=== PATIENT | female | born 1945 | race Caucasian/White ===

== ENCOUNTER 2016-04-24 20:00 | Observation (INO) | payer MEDICARE, BC ==
--- NOTE | 2016-04-24 20:24 | ERNOTE ---
Chest Pain/Cardiac HPI Chief Complaint: Chest Pain Time Seen by Provider: 04/24/16 20:14 Source: patient Exam Limitations: no limitations Immunizations: IMMUNIZATION HX History of Influenza Vaccine No Hx Pneumococcal Vaccination No Allergies/Adverse Reactions: Allergies desvenlafaxine succinate [From Pristiq] Allergy (Mild, Verified 04/24/16 20:17) Headache morphine Allergy (Mild, Verified 04/24/16 20:17) hypotension metronidazole [From Flagyl] Allergy (Unknown, Verified 04/24/16 20:17) citalopram hydrobromide [From Celexa] Adverse Reaction (Mild, Verified 04/24/16 20:17) Headache cyclobenzaprine HCl [From Flexeril] Adverse Reaction (Mild, Verified 04/24/16 20 :17) Headache desipramine Adverse Reaction (Mild, Verified 04/24/16 20:17) Headache estradiol [From Vagifem] Adverse Reaction (Mild, Verified 04/24/16 20:17) Itching estrogens, conjugated [From Prempro] Adverse Reaction (Mild, Verified 04/24/16 20:17) Itching indomethacin Adverse Reaction (Mild, Verified 04/24/16 20:17) Headache levofloxacin [From Levaquin] Adverse Reaction (Mild, Verified 04/24/16 20:17) RASH medroxyprogesterone acetate [From Prempro] Adverse Reaction (Mild, Verified 07/06 20:17) Itching niacin Adverse Reaction (Mild, Verified 04/24/16 20:17) RASH topiramate [From Topamax] Adverse Reaction (Mild, Verified 04/24/16 20:17) Headache triazolam [From Halcion] Adverse Reaction (Mild, Verified 04/24/16 20:17) Itching Home Medications: HOME MEDICATIONS Aspirin [Aspirin Enteric Coated] 81 mg PO DAILY 01/06/13 [Last Taken Unknown] LORazepam [Ativan] 0.5 - 1 mg PO HS PRN 01/06/13 [Last Taken Unknown] Levothyroxine Sodium [Tirosint] 50 mcg PO DAILY 01/06/13 [Last Taken Unknown] Paroxetine HCl [Paxil] 40 mg PO DAILY 01/06/13 [Last Taken Unknown] Albuterol Sulfate 2.5 mg IH QID PRN 11/26/14 [Last Taken Unknown] Bupropion HCl [Wellbutrin] 75 mg PO DAILY 11/26/14 [Last Taken Unknown] Diclofenac Sodium [Voltaren] 75 mg PO BID 11/26/14 [Last Taken Unknown] Pantoprazole Sodium 40 mg PO BID 12/01/14 [Last Taken Unknown] Alpha Lipoic Acid 600 mg PO DAILY 11/18/15 [Last Taken Unknown] Beta-Carotene(A) W-C , E/Min [Ocuvite] 1 tab PO DAILY 11/18/15 [Last Taken Unknown] Cholecalciferol (Vitamin D3) [Vitamin D3] 10,000 unit PO MOTUWETHFR 11/18/15 [ Last Taken Unknown] Metoprolol Succinate [Toprol Xl] 25 mg PO BID 11/18/15 [Last Taken 12/16/15 07: 00] Zolpidem Tartrate [Ambien] 5 mg PO HS 11/18/15 [Last Taken Unknown] Simvastatin [Zocor] 10 mg PO HS 01/27/16 [Last Taken Unknown] Narrative: intermittent chest pressure with some "heart flip-flopping" occasionally. Not running fast as it has in the past. Timing: getting worse Severity/Quality: moderate Location: central Chest Pain Radiation: no radiation Modifying Factors - Improves: Present: nothing Modifying Factors - Worsens: Present: nothing Associated Symptoms: Present: shortness of breath, palpitations Review of Systems - Review of Systems Constitutional: Present: recent illness, fatigue. Absent: fever, chills EYE: Present: no symptoms reported ENT: Present: no symptoms reported Respiratory: Present: shortness of breath - with any activity, cough - has been using albuterol PRN, last dose 16:00 today Cardiology: Present: palpitations. Absent: edema Gastrointestinal/Abdominal: Present: no symptoms reported Genitourinary: Present: no symptoms reported Musculoskeletal: Present: no symptoms reported Skin: Present: no symptoms reported Neurological: Present: no symptoms reported Endocrine: Present: no symptoms reported Hematologic/Lymphatic: Present: no symptoms reported Psych: Present: no symptoms reported - Patient's Past Medical History Patient History - Medical: Anxiety, Depression, Fibromyalgia, GERD, Hypothyroidism, Migraines, Rheumatoid Arthritis, Other Patient History - Cancer: No Hx of Cancer Patient History - Surgical Procedures: , Hysterectomy, Tubal Ligation, Other - Family History Father Family History - Medical: , Diabetes Type 2 Family History - Cardiac/Respiratory: Other Mother Family History - Medical: , No pertinent hx Family History - Cardiac/Respiratory: Hypertension - Social History Living Situations: home Smoking Status: Never smoker Alcohol Use: none Drug Use: none Physical Exam - Physical Exam General Appearance: Present: wd/wn, alert, no apparent distress Eye Exam: Normal inspection: bilateral, PERRL: bilateral, EOMI: bilateral Neck: Present: normal inspection, nontender Respiratory: Present: no respiratory distress, normal breath sounds, no accessory muscle use, lungs clear Cardiovascular/Chest: Present: regular rate, rhythm, no murmur, normal peripheral pulses Gastrointestinal/Abdominal: Present: nontender, nondistended, soft Extremity Exam: Present: normal inspection, no edema, normal range of motion Neurological Exam: Present: alert, oriented, normal mood/affect, no motor/ sensory deficits Skin Exam: Present: normal color, warm/dry Lymphatic Exam: Present: no adenopathy ED Progress - Results and Orders Patient's Lab Results:: I have reviewed the patient's lab results. Results and Orders: Laboratory Tests 04/24/16 04/24/16 04/24/16 20:27 20:27 20:27 WBC 6.5 Hgb 12.8 Hct 37.9 Plt Count 208 PT 10.6 INR (Anticoag Therapy) 1.02 PTT ([place]) 28.5 Sodium 140 Potassium 3.7 Chloride 104 Carbon Dioxide 25.9 Anion Gap 13.8 BUN 14 Creatinine 1.13 Est GFR (Non-Af Amer) 51 L Random Glucose 98 Calcium 9.4 Calcium Adj for Albumin 9.5 Total Bilirubin 0.3 AST 15 ALT 22 Alkaline Phosphatase 100 Troponin I Less than 0.017 B-Natriuretic Peptide Total Protein 7.5 Albumin 3.5 04/24/16 22:05 WBC Hgb Hct Plt Count PT INR (Anticoag Therapy) PTT ([place]) Sodium Potassium Chloride Carbon Dioxide Anion Gap BUN Creatinine Est GFR (Non-Af Amer) Random Glucose Calcium Calcium Adj for Albumin Total Bilirubin AST ALT Alkaline Phosphatase Troponin I B-Natriuretic Peptide 570 H Total Protein Albumin - Vital Signs Vital Signs: Vital Signs 04/24/16 20:08 Pulse Rate 69 Respiratory 19 Rate Blood Pressure 187/88 O2 Sat by Pulse 99 Oximetry - X-Ray X-Ray #1 X-Ray: chest Interpretation: Reviewed by me X-ray Comments: prominance of and cephalization of vessels suggesting early pulmonary edema, no effusion or infiltrate - Progress/Reassessment Chief Complaint: Chest Pain Departure - Departure Clinical Impression: Chest pain Qualifiers: Chest pain type: unspecified Qualified Code(s): R07.9 - Chest pain, unspecified Disposition: [facility] Condition: Fair
[2016-04-24 20:28] LABS: Hematocrit 37.9 % (37.0-47.0); Hemoglobin 12.8 gm/dL (12.5-16.0); Mean Cell Volume 90.2 fl (78-100); Mean Corpuscular Hemoglobin 30.5 pg (27-31); Mean Corpuscular Hgb Conc 33.8 g/dl (32-36); Mean Platelet Volume 10.6 fl (6.0-9.5); Neutrophil # 3.6 K/mm3 (1.3-6.0); Neutrophil % 56.1 % (42-75.0); Platelet Count 208 K/mm3 (150-450); Red Cell Distribution Width 13.1 % (11.5-14.0); White Blood Count 6.5 K/mm3 (4.0-10.5)
[2016-04-24 20:40] LABS: INR 1.02 INR (0.90-1.10); Partial Thrombolplastin Time 28.5 Seconds (24-32); Prothrombin Time (Patient) 10.6 Seconds (9.4-11.4)
[2016-04-24 20:46] LABS: ALT 22 U/L (19-67); AST 15 U/L (0-48); Albumin * 3.5 gm/dl (3.4-5.0); Alkaline Phosphatase * 100 U/L (50-170); Anion Gap 13.8 mmol/L (6.8-13.8); BUN/Creatinine Ratio 12.4 (9.0-21.6); Bilirubin, Total 0.3 mg/dL (0.0-1.1); Blood Urea Nitrogen 14 mg/dL (3-23); Ca. Corrected For Albumin 9.5 mg/dL (8.4-10.2); Calcium * 9.4 mg/dL (7.9-10.9); Carbon Dioxide 25.9 mmol/L (24-32.6); Chloride 104 mmol/L (97-106); Glucose * 98 mg/dL (70-110); Potassium 3.7 mmol/L (3.4-4.6); Sodium 140 mmol/L (132-142); Total Protein 7.5 gm/dL (6.2-8.2); Troponin I Less than 0.017 ng/ml (0.00-0.10)
[2016-04-24] MEDS ORDERED: ZOLPIDEM TARTRATE 5 MG TABLET ONE (23:59)
[2016-04-25] MEDS ORDERED: LORazepam 1 MG TABLET ONE
[2016-04-25] MEDS: NITROGLYCERIN 0.4 MG/TAB BTL SL PRN ×3 (00:03→00:17)
[2016-04-25] MEDS ORDERED: ASPIRIN 81 MG TAB.CHEW PO ONE (00:41)
[2016-04-25] MEDS ORDERED: FUROSEMIDE 40 MG TABLET PO ONE (07:11)
--- NOTE | 2016-04-25 07:52 | HP ---
Chief Complaint - Chief Complaint Date of Service: 04/25/16 Time of Service: 10:00 Chief Complaint: chest fluttering History of Present Illness: 70 years old female adm to the med surg from ER with at the bedside. PMH significant for anxiety, depression, COPD, hyperlipidemia, afib (ablation ) pt stated she has been having chest discomfort x2 weeks which felt more like a flutter that goes away after 20 minutes. she thought it was A-fib and was reluctant coming to the ER. however last night the chest discomfort lasted longer than its usual 20 minutes. she was concerned and came to ER today. she denies chest pressure, shortness of breath, palpitation, diaphoresis, nausea, vomiting, headache or dizziness.Obtained in ER CXR:mild interstitial prominence which may reflect pulmonary hypertension. small left basilar effusion associated mild consolidation may reflect effusion with atelectasis. BNP 570, she had dose IV lasix, nitro tab, aspirin and serial troponin negative. - Patient's Past Medical History Patient History - Medical: Anxiety, Depression, Fibromyalgia, GERD, Hypothyroidism, Migraines, Rheumatoid Arthritis, Other - sciatic pain Patient History - Cardiac/Respiratory: Atrial Fibrillation - ablation 03/2011, COPD, Hypertension, Hyperlipidemia Patient History - Cancer: No Hx of Cancer Patient History - Surgical Procedures: Appendectomy, , Hysterectomy, Tubal Ligation, Other - carpal tunnel release - Family History Father Family History - Medical: , Diabetes Type 2 Family History - Cardiac/Respiratory: Other Mother Family History - Medical: , No pertinent hx Family History - Cardiac/Respiratory: Hypertension - Social History Living Situations: spouse Smoking Status: Former smoker Have you smoked in the past 12 months: No Alcohol Use: none Drug Use: none Review Of Systems (GEN) - Review of Systems Generalized/Overall Review: Present: No Symptoms Reported EENTM: Present: Nose Congestion Respiratory: Present: Cough - productive with clear sputum thats improving Cardiac: Present: No Symptoms Reported Abdominal: Present: No Symptoms Reported Genitourinary: Present: No Symptoms Reported Musculoskeletal: Present: No Symptoms Reported Neurological: Present: No Symptoms Reported Skin: Present: No Symptoms Reported Allergies/Adverse Reactions: Allergies Allergy/AdvReac Type Severity Reaction Status Date / Time desvenlafaxine succinate Allergy Mild Headache Verified 04/24/16 20:17 [From Pristiq] morphine Allergy Mild hypotension Verified 04/24/16 20:17 metronidazole [From Flagyl] Allergy Unknown Verified 04/24/16 20:17 citalopram hydrobromide AdvReac Mild Headache Verified 04/24/16 20:17 [From Celexa] cyclobenzaprine HCl AdvReac Mild Headache Verified 04/24/16 20:17 [From Flexeril] desipramine AdvReac Mild Headache Verified 04/24/16 20:17 estradiol [From Vagifem] AdvReac Mild Itching Verified 04/24/16 20:17 estrogens, conjugated AdvReac Mild Itching Verified 04/24/16 20:17 [From Prempro] indomethacin AdvReac Mild Headache Verified 04/24/16 20:17 levofloxacin [From Levaquin] AdvReac Mild RASH Verified 04/24/16 20:17 medroxyprogesterone acetate AdvReac Mild Itching Verified 04/24/16 20:17 [From Prempro] niacin AdvReac Mild RASH Verified 04/24/16 20:17 topiramate [From Topamax] AdvReac Mild Headache Verified 04/24/16 20:17 triazolam [From Halcion] AdvReac Mild Itching Verified 04/24/16 20:17 Home Medications: HOME MEDICATIONS Aspirin [Aspirin Enteric Coated] 81 mg PO DAILY 01/06/13 [Last Taken Unknown] LORazepam [Ativan] 1 mg PO HS PRN 01/06/13 [Last Taken Unknown] Paroxetine HCl [Paxil] 40 mg PO DAILY@1400 01/06/13 [Last Taken Unknown] Albuterol Sulfate 2.5 mg IH QID PRN 11/26/14 [Last Taken Unknown] Bupropion HCl [Wellbutrin] 75 mg PO DAILY 11/26/14 [Last Taken Unknown] Diclofenac Sodium [Voltaren] 75 mg PO BID 11/26/14 [Last Taken Unknown] Pantoprazole Sodium 40 mg PO BID 12/01/14 [Last Taken Unknown] Alpha Lipoic Acid 600 mg PO DAILY 11/18/15 [Last Taken Unknown] Cholecalciferol (Vitamin D3) [Vitamin D3] 10,000 unit PO DAILY 11/18/15 [Last Taken Unknown] Metoprolol Succinate [Toprol Xl] 25 mg PO BID 11/18/15 [Last Taken 12/16/15 07: 00] Zolpidem Tartrate [Ambien] 5 mg PO HS 11/18/15 [Last Taken Unknown] Simvastatin [Zocor] 10 mg PO HS 01/27/16 [Last Taken Unknown] Cyanocobalamin (Vitamin B-12) [Vitamin B12] 1,000 mcg PO DAILY 04/25/16 [Last Taken Unknown] L.acidoph & Paracasei,B.lactis [Probiotic] 1 each PO DAILY 04/25/16 [Last Taken Unknown] LORazepam [Ativan] 0.5 mg PO TID PRN 04/25/16 [Last Taken Unknown] Liothyronine Sodium 5 mcg PO DAILY 04/25/16 [Last Taken Unknown] Multivit with Iron-Minerals [Central-[employer] For Seniors] 1 tab PO DAILY 04/25/16 [ Last Taken Unknown] Nystatin [Mycostatin 100 Mu/Ml Suspension] 6 ml PO DAILY PRN 04/25/16 [Last Taken Unknown] Triamcinolone Acetonide 15 gm TP DAILY PRN 04/25/16 [Last Taken Unknown] Exam - Exam Vital Signs: Vital Signs - Last Taken Temp 36.6 C 04/25/16 06:50 Pulse 65 04/25/16 07:43 Resp 20 04/25/16 06:50 BP 116/66 04/25/16 07:43 Pulse Ox 97 04/25/16 06:50 Constitutional: Present: Alert, Oriented x3, Cooperative, Well developed, No distress, Middle aged, Overweight ENT Exam: Present: normal ENT inspection Eye Exam: bilateral eye: PERRL Neck: Present: full range of motion Back Exam: Present: normal inspection, no CVA tenderness, no vertebral tenderness Respiratory: Present: chest non-tender, lungs clear, normal breath sounds, no respiratory distress, no accessory muscle use Cardiovascular/Chest: Present: normal peripheral pulses, regular rate, rhythm, no chest tenderness, no edema, no gallop Peripheral Pulses: dorsalis-pedis (R): 3+, dorsalis-pedis (L): 3+ Abdomen: Present: Normal bowel sounds, soft, nontender, nondistended /Rectal: Present: Exam deferred Extremity: Present: normal range of motion, non-tender, normal inspection, no pedal edema, no calf tenderness Skin Exam: Present: normal color, warm/dry, no cyanosis Neurologic: Present: oriented x 3 Appearance: Present: appropriate appearance Eye contact: Present: cooperative Thoughts: Present: normal thought pattern Diagnostic Studies: Laboratory Results WBC 6.5 K/mm3 (4.0-10.5) 04/24/16 20:27 RBC 4.20 M/mm3 (4.2-5.4) 04/24/16 20:27 Hgb 12.8 gm/dL (12.5-16.0) 04/24/16 20:27 Hct 37.9 % (37.0-47.0) 04/24/16 20:27 MCV 90.2 fl (78-100) 04/24/16 20:27 MCH 30.5 pg (27-31) 04/24/16 20: MCHC 33.8 g/dl (32-36) 04/24/16 20: RDW 13.1 % (11.5-14.0) 04/24/16 20: Plt Count 208 K/mm3 (150-450) 04/24/16 20:27 MPV 10.6 fl (6.0-9.5) H 04/24/16 20:27 Immature Gran % (Auto) 0.20 % (0.001-0.429) 04/24/16 20: Immature Gran # (Auto) 0.01 K/mm3 (0.000-0.0310) 04/24/16 20:27 Neutrophils % 56.1 % (42-75.0) 04/24/16 20:27 Lymphocytes % 27.8 % (20-51) 04/24/16 20:27 Monocytes % 10.9 % (0.0-9) H 04/24/16 20:27 Eosinophils % 4.7 % (0.0-3.0) H 04/24/16 20:27 Basophils % 0.3 % (0.0-1.0) 04/24/16 20:27 Nucleated RBC % 0.0 k/mm3 (0-1) 04/24/16 20: Neutrophils # 3.6 K/mm3 (1.3-6.0) 04/24/16 20:27 Lymphocytes # 1.8 k/mm3 (1.5-3.5) 04/24/16 20:27 Monocytes # 0.7 k/mm3 (0.0-1.0) 04/24/16 20:27 Eosinophils # 0.3 k/mm3 (0.0-0.7) 04/24/16 20: Absolute Basophils 0.0 k/mm3 (0.0-0.1) 04/24/16 20: PT 10.6 Seconds (9.4-11.4) 04/24/16 20: INR (Anticoag Therapy) 1.02 INR (0.90-1.10) 04/24/16 20: PTT ([place]) 28.5 Seconds (24-32) 04/24/16 20:27 Sodium 140 mmol/L (132-142) 04/24/16 20: Plasma Sodium 140 mmol/L (130-142) 04/24/16 20: Potassium 3.7 mmol/L (3.4-4.6) 04/24/16 20: Chloride 104 mmol/L (97-106) 04/24/16 20: Carbon Dioxide 25.9 mmol/L (24-32.6) 04/24/16 20: Anion Gap 13.8 mmol/L (6.8-13.8) 04/24/16 20: BUN 14 mg/dL (3-23) 04/24/16 20: Creatinine 1.13 mg/dL (0.4-1.4) 04/24/16 20: Est GFR (Non-Af Amer) 51 mL/min (60-130) L 04/24/16 20: BUN/Creatinine Ratio 12.4 (9.0-21.6) 04/24/16 20: Random Glucose 98 mg/dL (70-110) 04/24/16 20: Calcium 9.4 mg/dL (7.9-10.9) 04/24/16: Calcium Adj for Albumin 9.5 mg/dL (8.4-10.2) 04/24/16: Total Bilirubin 0.3 mg/dL (0.0-1.1) 04/24/16 20: AST 15 U/L (0-48) 04/24/16 20: ALT 22 U/L (19-67) 04/24/16 20: Alkaline Phosphatase 100 U/L (50-170) 04/24/16 20: Troponin I Less than 0.017 ng/ml (0.00-0.10) 04/25/16 06:45 B-Natriuretic Peptide 570 pg/mL (5-325) H 04/24/16 22:05 Total Protein 7.5 gm/dL (6.2-8.2) 04/24/16 20:27 Albumin 3.5 gm/dl (3.4-5.0) 04/24/16 20:27 CXR: Mild diffuse prominance of the interstitial lung marking with mild cephalization of vasculature. prominance of vessels suggesting early pulmonary edema, no effusion or infiltrate Assessment/Plan - Narrative Narrative: Atypical chest pain likely due to anxiety- resolved Serial troponin negative EkG- NSR Aspirin, nitro and lasix given in ER 04/25/16 CXR: on adm BNP 570. 2D- echo pending Pt to follow up with PCP for Echo result. low sodium diet Discussed with attending pt medically stable for discharge home today. Anxiety and depression May resume home dose of Ativan schedule and PRN Give dose now VTE ambulate and SCD code Status Full - Assessment/Plan (1) Anxiety and depression Problem: Chronic (2) COPD (chronic obstructive pulmonary disease) Problem: Chronic (3) Chest pain Problem: Resolved Qualifiers: Chest pain type: unspecified Qualified Code(s): R07.9 - Chest pain, unspecified
[2016-04-25] MEDS ORDERED: LORazepam 0.5 MG TABLET PO ONE (10:35)
[2016-04-25 14:57] VITALS: BP 137/63
--- NOTE | 2016-04-25 15:59 | DS ---
(1) Anxiety and depression Problem: Chronic (2) COPD (chronic obstructive pulmonary disease) Problem: Chronic (3) Chest pain Problem: Resolved Qualifiers: Chest pain type: unspecified Qualified Code(s): R07.9 - Chest pain, unspecified Description of Stay: Date of admission: 04/25/2016 Date of Discharge : 04/25/2016 Hospital Course: 70 years old female adm to the med surg from ER with at the bedside. PMH significant for anxiety, depression, COPD, hyperlipidemia, afib (ablation ) pt stated she has been having chest discomfort x2 weeks which felt more like a flutter that goes away after 20 minutes. she thought it was A-fib and was reluctant coming to the ER. however last night the chest discomfort lasted longer than its usual 20 minutes. she was concerned and came to ER today. she denies chest pressure, shortness of breath, palpitation, diaphoresis, nausea, vomiting, headache or dizziness.Obtained in ER CXR:mild interstitial prominence which may reflect pulmonary hypertension. small left basilar effusion associated mild consolidation may reflect effusion with atelectasis. BNP 570, she had dose IV lasix, nitro tab, aspirin and serial troponin negative. 2D echo pending pt to follow up with PCP for report, during this adm pt remain medically stable. she is stable for DC home today and follow up with PCP. Diagnostic CXR: Procedures Performed: none Results and Findings: Laboratory Tests 04/24/16 04/24/16 04/25/16 20:27 22:05 02:30 Troponin I Less than 0.017 Less than 0.017 B-Natriuretic Peptide 570 H 04/25/16 06:45 Troponin I Less than 0.017 B-Natriuretic Peptide Mild diffuse prominance of the interstitial lung marking with mild cephalization of vasculature. prominance of vessels suggesting early pulmonary edema, no effusion or infiltrate Discharge Disposition: Home self care Disposition: Home self-care Condition: Stable Discharge Activity: Activity as tolerated Discharge Diet: Other - low sodium diet Referrals: Yamila Simmons CNP [Primary Care Provider] - Complete Home Medications List: Complete Home Medication List: Aspirin [Aspirin Enteric Coated] 81 mg PO DAILY 01/06/13 LORazepam [Ativan] 1 mg PO HS PRN 01/06/13 Paroxetine HCl [Paxil] 40 mg PO DAILY@1400 01/06/13 Albuterol Sulfate 2.5 mg IH QID PRN 11/26/14 Bupropion HCl [Wellbutrin] 75 mg PO DAILY 11/26/14 Diclofenac Sodium [Voltaren] 75 mg PO BID 11/26/14 Pantoprazole Sodium 40 mg PO BID 12/01/14 Alpha Lipoic Acid 600 mg PO DAILY 11/18/15 Cholecalciferol (Vitamin D3) [Vitamin D3] 10,000 unit PO DAILY 11/18/15 Metoprolol Succinate [Toprol Xl] 25 mg PO BID 11/18/15 Zolpidem Tartrate [Ambien] 5 mg PO HS 11/18/15 Simvastatin [Zocor] 10 mg PO HS 01/27/16 Cyanocobalamin (Vitamin B-12) [Vitamin B12] 1,000 mcg PO DAILY 04/25/16 L.acidoph & Paracasei,B.lactis [Probiotic] 1 each PO DAILY 04/25/16 LORazepam [Ativan] 0.5 mg PO TID PRN 04/25/16 Liothyronine Sodium 5 mcg PO DAILY 04/25/16 Multivit with Iron-Minerals [[employer] Seniors] 1 tab PO DAILY 04/25/16 Nystatin [Mycostatin 100 Mu/Ml Suspension] 6 ml PO DAILY PRN 04/25/16 Triamcinolone Acetonide 15 gm TP DAILY PRN 04/25/16
[2016-04-25] MEDS ORDERED: ZOLPIDEM TARTRATE 5 MG TABLET PO SCH (21:00)
[2016-04-25] MEDS ORDERED: LORazepam 1 MG TABLET PO SCH (21:00)
--- NOTE | 2016-04-26 15:02 | ECHO ---
This report is available in the EMR
== END 2016-04-25 17:14 | disposition home or self-care (01) ==
LOC: ER 20:00 → MS 22:38
PROVIDERS: ADMIT Family Medicine; ATTEND Family Medicine
DX: F41.8 Other specified anxiety disorders (principal); J44.9 Chronic obstructive pulmonary disease, unspecified; M79.7 Fibromyalgia; M06.9 Rheumatoid arthritis, unspecified; K21.9 Gastro-esophageal reflux disease without esophagitis; E78.5 Hyperlipidemia, unspecified; E03.9 Hypothyroidism, unspecified; I48.91 Unspecified atrial fibrillation; Z90.49 Acquired absence of other specified parts of digestive tract; Z90.710 Acquired absence of both cervix and uterus; Z79.82 Long term (current) use of aspirin; Z79.899 Other long term (current) drug therapy
CPT/HCPCS: 36415; 71020; 80053; 83880; 84484; 85025; 85610; 85730; 93005; 93306; 94660; 99284; G0378

== ENCOUNTER 2016-11-01 15:38 | Emergency (ER) | payer MEDICARE, BC ==
--- NOTE | 2016-11-01 17:11 | ERNOTE ---
Lower Extremity HPI - Narrative Date of Service: 11/01/16 - General Lower Extremities Pain: ankle: right Source: patient Exam Limitations: no limitations - Immun/Allergies/Home Medications Immunizations: IMMUNIZATION HX History of Influenza Vaccine No Hx Pneumococcal Vaccination No Allergies/Adverse Reactions: Allergies Allergy/AdvReac Type Severity Reaction Status Date / Time desvenlafaxine succinate Allergy Mild Headache Verified 11/01/16 15:44 [From Pristiq] morphine Allergy Mild hypotension Verified 11/01/16 15:44 metronidazole [From Flagyl] Allergy Unknown Verified 11/01/16 15:44 citalopram hydrobromide AdvReac Mild Headache Verified 11/01/16 15:44 [From Celexa] cyclobenzaprine HCl AdvReac Mild Headache Verified 11/01/16 15:44 [From Flexeril] desipramine AdvReac Mild Headache Verified 11/01/16 15:44 estradiol [From Vagifem] AdvReac Mild Itching Verified 11/01/16 15:44 estrogens, conjugated AdvReac Mild Itching Verified 11/01/16 15:44 [From Prempro] indomethacin AdvReac Mild Headache Verified 11/01/16 15:44 levofloxacin [From Levaquin] AdvReac Mild RASH Verified 11/01/16 15:44 medroxyprogesterone acetate AdvReac Mild Itching Verified 11/01/16 15:44 [From Prempro] niacin AdvReac Mild RASH Verified 11/01/16 15:44 topiramate [From Topamax] AdvReac Mild Headache Verified 11/01/16 15:44 triazolam [From Halcion] AdvReac Mild Itching Verified 11/01/16 15:44 Home Medications: HOME MEDICATIONS Aspirin [Aspirin Enteric Coated] 81 mg PO DAILY 01/06/13 [Last Taken Unknown] LORazepam [Ativan] 1 mg PO HS PRN 01/06/13 [Last Taken Unknown] PARoxetine HCL [Paxil] 40 mg PO DAILY@1400 01/06/13 [Last Taken Unknown] Albuterol Sulfate 2.5 mg IH QID PRN 11/26/14 [Last Taken Unknown] Bupropion HCl [Wellbutrin] 75 mg PO DAILY 11/26/14 [Last Taken Unknown] Diclofenac Sodium [Voltaren] 75 mg PO DAILY 11/26/14 [Last Taken Unknown] Pantoprazole Sodium 40 mg PO BID 12/01/14 [Last Taken Unknown] Alpha Lipoic Acid 600 mg PO DAILY 11/18/15 [Last Taken Unknown] Cholecalciferol (Vitamin D3) [Vitamin D3] 10,000 unit PO DAILY 11/18/15 [Last Taken Unknown] Metoprolol Succinate [Toprol Xl] 25 mg PO BID 11/18/15 [Last Taken 12/16/15 07: 00] Zolpidem Tartrate [Ambien] 5 mg PO HS 11/18/15 [Last Taken Unknown] Simvastatin [Zocor] 10 mg PO HS 01/27/16 [Last Taken Unknown] Cyanocobalamin (Vitamin B-12) [Vitamin B12] 1,000 mcg PO DAILY 04/25/16 [Last Taken Unknown] L.acidoph,Paracasei, B.lactis [Probiotic] 1 each PO DAILY 04/25/16 [Last Taken Unknown] LORazepam [Ativan] 0.5 mg PO TID PRN 04/25/16 [Last Taken Unknown] Liothyronine Sodium 5 mcg PO DAILY 04/25/16 [Last Taken Unknown] Multivit with Iron-Minerals [Central-L[employer]el For Seniors] 1 tab PO DAILY 04/25/16 [ Last Taken Unknown] Levothyroxine Sodium [Tirosint] 50 mcg PO DAILY 11/01/16 [Last Taken Unknown] rOPINIRole HCL [Requip] 0.25 mg PO HS 11/01/16 [Last Taken Unknown] - History of Present Illness Occurred: yesterday Location of Incident: other - patient reports no known injury, has pain with movement Method of Injury: Reports: no apparent injury Reason for Fall: Reports: unknown Loss of Consciousness: Reports: no loss of consciousness Modifying Factors - (Improves): Reports: cold therapy Modifying Factors - (Worsens): Reports: cold therapy Associated Symptoms: Reports: unable to bear weight Other Injuries: Reports: none Prior Treament: Reports: other - none Review of Systems - Review of Systems Constitutional: Present: See HPI EYE: Present: no symptoms reported ENT: Present: no symptoms reported Respiratory: Present: no symptoms reported Cardiology: Present: no symptoms reported Gastrointestinal/Abdominal: Present: no symptoms reported Genitourinary: Present: no symptoms reported Musculoskeletal: Present: joint pain, joint swelling Skin: Present: no symptoms reported Neurological: Present: no symptoms reported Endocrine: Present: no symptoms reported Hematologic/Lymphatic: Present: no symptoms reported All Other Systems: All systems neg except as marked - Patient's Past Medical History Patient History - Medical: Anxiety, Depression, Fibromyalgia, GERD, Hypothyroidism, Migraines, Rheumatoid Arthritis, Other Patient History - Cardiac/Respiratory: Atrial Fibrillation, COPD, Hyperlipidemia , Sleep Apnea Patient History - Cancer: No Hx of Cancer Patient History - Surgical Procedures: Appendectomy, , Hysterectomy, Tubal Ligation, Other Patient History - Other: None - Family History Father Family History - Medical: , Diabetes Type 2 Family History - Cardiac/Respiratory: Other Mother Family History - Medical: , No pertinent hx Family History - Cardiac/Respiratory: Hypertension - Social History Living Situations: home Abuse History: No History of abuse Psych History: Hx of Anxiety, Hx of Depression Alcohol Use: none Drug Use: none - Immunizations Hx Pneumococcal Vaccination: No History of Influenza Vaccine: No Physical Exam - Physical Exam General Appearance: Present: alert, mild distress Head Exam: Present: normal inspection, no evidence of injury Eye Exam: Normal inspection: bilateral, PERRL: bilateral, EOMI: bilateral Ears, Nose, Throat: Present: normal ENT inspection Neck: Present: normal inspection, nontender Respiratory: Present: no respiratory distress, normal breath sounds, no accessory muscle use, chest nontender, lungs clear Cardiovascular/Chest: Present: regular rate, rhythm, no murmur, normal peripheral pulses Peripheral Pulses: N=norm/S=strong/W=weak/B=bound/A=absent: Carotid (R): Normal , Carotid (L): Normal, Radial (R): Normal, Radial (L): Normal, Femoral (R): Normal, Femoral (L): Normal, Dorsalis-pedis (R): Normal, Dorsalis-pedis (L): Normal Gastrointestinal/Abdominal: Present: normal bowel sounds, nontender, nondistended, soft, no organomegaly Back Exam: Present: normal inspection, normal range of motion, no CVA tenderness , no vertebral tenderness Extremity Exam: Present: joint swelling, other - pain with movement of ankle DTR: N=norm/NB=norm/brisk/A=abs/DD=dull/dimin/HC=hyperactive: Bicep (R): Normal , Bicep (L): Normal, Tricep (R): Normal, Tricep (L): Normal, Knee (R): Normal, Knee (L): Normal, Ankle (R): Normal, Ankle (L): Normal Skin Exam: Present: normal color, warm/dry Lymphatic Exam: Present: no adenopathy ED Progress - Vital Signs Patient's Vital Signs:: I have reviewed the patient's vital signs. Vital Signs: Vital Signs 11/01/16 15:39 Temperature 36.6 C Pulse Rate 66 Respiratory 12 Rate Blood Pressure 137/77 O2 Sat by Pulse 94 Oximetry - X-Ray X-Ray #1 X-Ray: ankle - no apparrent fracture - Progress/Reassessment Chief Complaint: Ankle Injury/ Pain Departure Clinical Impression: Right ankle sprain - Departure Disposition: Home self-care Condition: Fair Instructions: Ankle Sprain, [id number] Referrals: Yamila Simmons, [employer] [Primary Care Provider] -
[2016-11-01 19:27] VITALS: BP 134/74
--- OUTSIDE RECORDS SUMMARY | 2016-11-01 19:35 | XMS REPORT | Summary of Care ---
:1945 Author Organization [facility] Address [address] [place] [id number]- Care Team Providers Name Role Phone Quangmarcelo Yamila Primary Care Physician Encounter Date(s): 07/16/16 - 07/16/[address] [id number]- [facility] Discharge Disposition: 01 Discharged to Home or Self Care Attending Physician: Addison Garnett DO Admitting Physician: Addison Garnett DO Vital Signs Most recent to oldest 1 2 3 [Reference Range]: Temperature Temporal Artery 36.8 DegC 35.6 DegC [36-38 DegC] (07/16/16 1:50 PM) *LOW* (07/16/16 12:04 PM) Heart Rate Monitored [60-100 57 bpm 57 bpm 58 bpm bpm] *LOW* *LOW* *LOW* (07/16/16 2:16 PM) (07/16/16 2:05 PM) (07/16/16 2:05 PM) Respiratory Rate [12-20 16 br/min 16 br/min 16 br/min br/min] (07/16/16 2:16 PM) (07/16/16 2:05 PM) (07/16/16 2:00 PM) SpO2 [90-100 %] 96 % 94 % 94 % (07/16/16 2:16 PM) (07/16/16 2:05 PM) (07/16/16 2:05 PM) SpO2 Location Right hand (07/16/16 2:16 PM) Blood Pressure [90-130/60-90 160/80mmHg 157/81mmHg mmHg] *HI* *HI* (07/16/16 2:16 PM) (07/16/16 2:05 PM) Systolic Blood Pressure 157 mmHg Monitored [90-130 mmHg] *HI* (07/16/16 2:05 PM) Diastolic Blood Pressure 81 mmHg Monitored [60-90 mmHg] (07/16/16 2:05 PM) Mean Arterial Pressure Monitor 109 mmHg 112 mmHg 113 mmHg Measure (07/16/16 2:05 PM) (07/16/16 2:00 PM) (07/16/16 1:55 PM) Most recent to oldest [Reference Range]: 1 2 3 Height/Length Measured 165 cm (07/16/16 12:04 PM) Height/Length Estimated 165.1 cm 165 cm (07/13/16 12:49 PM) (06/01/16 8:54 AM) Weight Estimated 63.5 kg 65 kg (07/13/16 12:49 PM) (06/01/16 8:54 AM) Weight Dosing 62.7 kg (07/16/16 12:04 PM) Weight Measured 62.7 kg (07/16/16 12:04 PM) Body Mass Index Measured 23.03 kg/m2 (07/16/16 12:04 PM) Problem List No data available for this section Allergies, Adverse Reactions, Alerts Substance Reaction Severity Status morphine Hypotension Severe Active Medications Alpha Lipoic 300 mg oral tablet 2 tab(s), Oral, Daily, 0 Refill(s), Start Date: 06/01/16 8:59:00 DIRECTOR [employer] Start Date: 06/01/16 Status: Orderedaspirin 81 mg oral tablet 1 tab(s), Oral, Daily, 0 Refill(s), Start Date: 02/11/14 11:06:00 CDT Start Date: 02/11/14 Status: OrderedB-12 1,000 mcg, SL, Daily, 0 Refill(s), Start Date: 03/14/15 15:15:00 [employer] Start Date: 03/14/15 Status: OrderedbuPROPion 75 mg oral tablet 1 tab(s), Oral, Daily, 0 Refill(s), Start Date: 02/11/14 11:04:00 CDT Start Date: 02/11/14 Status: OrderedCT Oral Prep See Instructions, as directed, # 2 bottles, 0 Refill(s), Start Date: 02/11/14 11 :48:00 CDT Special Instructions: as directed Start Date: 02/11/14 Stop Date: 03/26/14 Status: Completeddiclofenac sodium 75 mg oral delayed release tablet 1 tab(s), Oral, Daily, 0 Refill(s), Start Date: 02/11/14 11:04:00 CDT Start Date: 02/11/14 Status: Orderedlevothyroxine 0.05 mg, Oral, Daily, 0 Refill(s), Start Date: 02/11/14 11:04:00 CDT Start Date: 02/11/14 Status: Orderedliothyronine 5 mcg oral tablet 1 tab(s), Oral, Daily, 0 Refill(s), Start Date: 06/01/16 8:58:00 [employer] Start Date: 06/01/16 Status: OrderedLORazepam 1 mg oral tablet 1 tab(s), Oral, TID, PRN as needed for anxiety, 0 Refill(s), Start Date: 11:05:00 CDT Start Date: 02/11/14 Status: Orderedmetoprolol succinate 25 mg oral tablet, extended release 1 tab(s), Oral, Daily, 0 Refill(s), Start Date: 02/11/14 11:06:00 CDT Start Date: 02/11/14 Status: Orderedmultivitamin 1 tab(s), Oral, Daily, 0 Refill(s), Start Date: 03/14/15 15:15:00 [employer] Start Date: 03/14/15 Status: Orderedpantoprazole 40 mg oral delayed release tablet 1 tab(s), Oral, BID, # 60 tab(s), 2 Refill(s), Start Date: 01/14/14 11:04:00 CDT , Pharmacy: [facility] [id number] Start Date: 01/14/14 Stop Date: 07/19/14 Status: Completedpantoprazole 40 mg oral delayed release tablet 1 tab(s), Oral, BID, # 60 tab(s), 5 Refill(s), Start Date: 05/25/16 10:05:52 DIRECTOR ON [employer] , Pharmacy: [facility] [id number] Start Date: 05/25/16 Status: Orderedpantoprazole 40 mg oral delayed release tablet 1 tab(s), Oral, BID, # 60 tab(s), 1 Refill(s), Start Date: 02/01/16 9:18:00 CDT , Pharmacy: [facility] [id number] Start Date: 02/01/16 Stop Date: 05/25/16 Status: Completedpantoprazole 40 mg oral delayed release tablet 1 tab(s), Oral, BID, # 60 tab(s), 9 Refill(s), Start Date: 07/19/14 16:13:31 CDT , Pharmacy: [facility] [id number] Start Date: 07/19/14 Stop Date: 03/14/15 Status: Discontinuedpantoprazole 40 mg oral delayed release tablet 1 tab(s), Oral, BID, # 60 tab(s), 11 Refill(s), Start Date: 03/14/15 15:28:45 DIRECTOR ON [employer], Pharmacy: [facility] [id number] Start Date: 03/14/15 Stop Date: 06/01/16 Status: Completedpantoprazole 40 mg oral delayed release tablet 1 tab(s), Oral, BID, 0 Refill(s), Start Date: 02/11/14 11:05:00 CDT Start Date: 02/11/14 Stop Date: 06/01/16 Status: CompletedPARoxetine 40 mg oral tablet 1 tab(s), Oral, HS, 0 Refill(s), Start Date: 02/11/14 11:04:00 CDT Start Date: 02/11/14 Status: OrderedProbiotic Formula 1 cap(s), Oral, Daily, 0 Refill(s), Start Date: 03/14/15 15:15:00 DIRECT[employer] Start Date: 03/14/15 Status: OrderedrOPINIRole 0.25 mg oral tablet 1 tab(s), Oral, HS, 0 Refill(s), Start Date: 06/01/16 8:59:00 DIRECT[employer] Start Date: 06/01/16 Status: Orderedsimvastatin 10 mg, Oral, HS, 0 Refill(s), Start Date: 02/11/14 11:05:00 CDT Start Date: 02/11/14 Status: OrderedVitamin B12 1,000 mcg, Oral, Daily, 0 Refill(s), Start Date: 10/23/14 11:06:00 CDT Start Date: 02/11/14 Status: OrderedZantac 150 oral tablet 1 tab(s), Oral, HS, # 30 tab(s), 11 Refill(s), Start Date: 03/14/15 15:29:00 DIRECTOR [employer] , Pharmacy: [facility] [id number] Start Date: 03/14/15 Stop Date: 06/01/16 Status: Completedzolpidem 5 mg oral tablet 1 tab(s), Oral, HS, 0 Refill(s), Start Date: 02/11/14 11:05:00 CDT Start Date: 02/11/14 Status: Ordered Results Patient Viewable Results Most recent to oldest 1 2 3 [Reference Range]: AN - Fi O2 21 % % 22 % % 22 % % (07/16/16 1:50 PM) (07/16/16 1:45 PM) (07/16/16 1:40 PM) Immunizations No data available for this section Procedures Procedure Date Related Diagnosis Body Site Esophageal Dilation1 07/16/16 Colonoscopy2 03/30/14 Esophagogastroduodenoscopy3 03/30/14 Catheter ablation for cardiac arrhythmia4 2010 section 1974 1auto-populated from documented surgical [id number] from documented surgical [id number] from documented surgical [id number] Social History No data available for this section Assessment and Plan No data available for this section
== END 2016-11-01 17:44 | disposition home or self-care (01) ==
LOC: ER 15:38
DX: S93.401A Sprain of unspecified ligament of right ankle, initial encounter (principal); F41.8 Other specified anxiety disorders; M79.7 Fibromyalgia; K21.9 Gastro-esophageal reflux disease without esophagitis; E03.9 Hypothyroidism, unspecified; M06.9 Rheumatoid arthritis, unspecified; I48.91 Unspecified atrial fibrillation; Z79.01 Long term (current) use of anticoagulants; J44.9 Chronic obstructive pulmonary disease, unspecified; E87.5 Hyperkalemia

== ENCOUNTER 2016-12-24 15:05 | Emergency (ER) | payer MEDICARE, BC ==
[2016-12-24] MEDS ORDERED: KETOROLAC TROMETHAMINE 30 MG/ML VIAL IM ONE (15:29)
[2016-12-24] MEDS ORDERED: KETOROLAC TROMETHAMINE 30 MG/ML VIAL ONE (15:34)
[2016-12-24] MEDS ORDERED: PHENAZOPYRIDINE HCL 100 MG TABLET PO ONE (15:35)
--- NOTE | 2016-12-24 15:38 | ERNOTE ---
Abdominal HPI - Narrative Date of Service: 12/24/16 - General Chief Complaint: Abdominal Pain Time Seen by Provider: 12/24/16 15:28 Source: patient Exam Limitations: no limitations - Immun/Allergies/Home Medications Immunizatons: IMMUNIZATION HX Immunizations Up to Date Yes History of Influenza Vaccine No Hx Pneumococcal Vaccination No Allergies/Adverse Reactions: Allergies desvenlafaxine succinate [From Pristiq] Allergy (Mild, Verified 12/24/16 15:26) Headache morphine Allergy (Mild, Verified 12/24/16 15:26) hypotension metronidazole [From Flagyl] Allergy (Unknown, Verified 12/24/16 15:26) citalopram hydrobromide [From Celexa] Adverse Reaction (Mild, Verified 12/24/16 15:26) Headache cyclobenzaprine HCl [From Flexeril] Adverse Reaction (Mild, Verified 12/24/16 15 :26) Headache desipramine Adverse Reaction (Mild, Verified 12/24/16 15:26) Headache estradiol [From Vagifem] Adverse Reaction (Mild, Verified 12/24/16 15:26) Itching estrogens, conjugated [From Prempro] Adverse Reaction (Mild, Verified 12/24/16 15:26) Itching indomethacin Adverse Reaction (Mild, Verified 12/24/16 15:26) Headache levofloxacin [From Levaquin] Adverse Reaction (Mild, Verified 12/24/16 15:26) RASH medroxyprogesterone acetate [From Prempro] Adverse Reaction (Mild, Verified 08/06 15:26) Itching niacin Adverse Reaction (Mild, Verified 12/24/16 15:26) RASH topiramate [From Topamax] Adverse Reaction (Mild, Verified 12/24/16 15:26) Headache triazolam [From Halcion] Adverse Reaction (Mild, Verified 12/24/16 15:26) Itching Home Medications: HOME MEDICATIONS Aspirin [Aspirin Enteric Coated] 81 mg PO DAILY 01/06/13 [Last Taken Unknown] LORazepam [Ativan] 1 mg PO HS PRN 01/06/13 [Last Taken Unknown] PARoxetine HCL [Paxil] 40 mg PO DAILY@1400 01/06/13 [Last Taken Unknown] Albuterol Sulfate 2.5 mg IH QID PRN 11/26/14 [Last Taken Unknown] Bupropion HCl [Wellbutrin] 75 mg PO DAILY 11/26/14 [Last Taken Unknown] Diclofenac Sodium [Voltaren] 75 mg PO DAILY 11/26/14 [Last Taken Unknown] Pantoprazole Sodium 40 mg PO BID 12/01/14 [Last Taken Unknown] Alpha Lipoic Acid 600 mg PO DAILY 11/18/15 [Last Taken Unknown] Cholecalciferol (Vitamin D3) [Vitamin D3] 10,000 unit PO DAILY 11/18/15 [Last Taken Unknown] Metoprolol Succinate [Toprol Xl] 25 mg PO BID 11/18/15 [Last Taken 12/16/15 07: 00] Zolpidem Tartrate [Ambien] 5 mg PO HS 11/18/15 [Last Taken Unknown] Simvastatin [Zocor] 10 mg PO HS 01/27/16 [Last Taken Unknown] Cyanocobalamin (Vitamin B-12) [Vitamin B12] 1,000 mcg PO DAILY 04/25/16 [Last Taken Unknown] L.acidoph,Paracasei, B.lactis [Probiotic] 1 each PO DAILY 04/25/16 [Last Taken Unknown] LORazepam [Ativan] 0.5 mg PO TID PRN 04/25/16 [Last Taken Unknown] Liothyronine Sodium 5 mcg PO DAILY 04/25/16 [Last Taken Unknown] Multivit-Min/FA/Lycopen/Lutein [Central-[employer]iors] 1 tab PO DAILY [Last Taken Unknown] Levothyroxine Sodium [Tirosint] 50 mcg PO DAILY 11/01/16 [Last Taken Unknown] rOPINIRole HCL [Requip] 0.25 mg PO HS 11/01/16 [Last Taken Unknown] Tamsulosin HCl [Flomax] 0.4 mg PO DAILY@1800 #30 cap 12/24/16 [Last Taken Unknown] oxyCODONE HCL/ACETAMINOPHEN [Percocet 5 MG/325 MG] 1 tab PO Q4H PRN #20 tab 08/06 [Last Taken Unknown] - History of Present Illness Narrative: Pt. comes in with c/o urimnary urgency with L flank pai9n since 0900 this morning that is getting worse throughout the day. Pt. denies any SOB, CP, fever , vomiting or diarrhea but states that she has nausea. Pt. denies any prehospital treatment or alleviating factors but states that palpation exacerbates the pain. Review of Systems - Review of Systems Constitutional: Present: no symptoms reported. Absent: fever, chills, weakness , fatigue, malaise EYE: Present: no symptoms reported ENT: Present: no symptoms reported Respiratory: Present: no symptoms reported. Absent: shortness of breath, cough , wheezing Cardiology: Present: no symptoms reported. Absent: chest pain, palpitations, edema Gastrointestinal/Abdominal: Present: nausea, abdominal pain - suprapubic. Absent: vomiting, diarrhea Genitourinary: Present: frequency, pain - L flank, dysuria, hematuria. Absent: decreased urinary output Musculoskeletal: Present: back pain - L flank Skin: Present: no symptoms reported Neurological: Present: no symptoms reported. Absent: headache, dizziness/light- headedness, numbness, tingling All Other Systems: All systems neg except as marked - Patient's Past Medical History Patient History - Medical: Anxiety, Depression, Fibromyalgia, GERD, Hypothyroidism, Migraines, Rheumatoid Arthritis Patient History - Cardiac/Respiratory: Atrial Fibrillation, COPD, Hyperlipidemia , Sleep Apnea Patient History - Cancer: No Hx of Cancer Patient History - Surgical Procedures: Appendectomy, , Hysterectomy, Tubal Ligation, Other Patient History - Other: None LMP (females 10-50): Menopausal - Family History Father Family History - Medical: , Diabetes Type 2 Family History - Cardiac/Respiratory: Other Mother Family History - Medical: , No pertinent hx Family History - Cardiac/Respiratory: Hypertension - Social History Living Situations: home Abuse History: No History of abuse Psych History: Hx of Anxiety, Hx of Depression Smoking Status: Former smoker Alcohol Use: none Drug Use: none - Immunizations Immunizations Up to Date: Yes Hx Pneumococcal Vaccination: No History of Influenza Vaccine: No Physical Exam - Physical Exam General Appearance: Present: wd/wn, alert, no apparent distress Head Exam: Present: normal inspection, no evidence of injury Eye Exam: Normal inspection: bilateral, PERRL: bilateral, EOMI: bilateral Ears, Nose, Throat: Present: normal ENT inspection, normal pharynx Neck: Present: normal inspection, nontender. Absent: lymphadenopathy (R), lymphadenopathy (L) Respiratory: Present: no respiratory distress, normal breath sounds, no accessory muscle use, chest nontender, lungs clear Cardiovascular/Chest: Present: regular rate, rhythm, no murmur, normal peripheral pulses Gastrointestinal/Abdominal: Present: normal bowel sounds, nontender, nondistended, soft, no organomegaly Back Exam: Present: normal range of motion, no vertebral tenderness, CVA tenderness (L). Absent: decreased range of motion, muscle spasm Extremity Exam: Present: normal inspection, non-tender, normal range of motion, no edema Neurological Exam: Present: alert, oriented, normal mood/affect, no motor/ sensory deficits Skin Exam: Present: normal color, warm/dry. Absent: pallor, skin rash ED Progress - Date and Time Seen: Date and Time: 12/24/16 16:00 Pt./ with severe L CVA tenderness that radiates to L lateral abdomen therefore a CT to rule out renal stones is indicated at this time even though pt. only has mild hematuria. 12/24/16 17:[address] Feng and he feels that as long as pt. pain and htn is controllable with POI medications than can send pt. home to be seen outpatient tomorrow but if not may need to admit pt. for pain and blood pressure control. 12/24/16 17:49 Pt. blood pressure and pain improved with dilaudid 1 mg so should be equvalent to 5 mg oxycodone so will start pt. on this. - Results and Orders Patient's Lab Results:: I have reviewed the patient's lab results. - Vital Signs Patient's Vital Signs:: I have reviewed the patient's vital signs. Vital Signs: Vital Signs 12/24/16 15:22 Temperature 36.7 C Pulse Rate 76 Respiratory 16 Rate Blood Pressure 185/102 O2 Sat by Pulse 98 Oximetry - CT/Ultrasound CT/Ultrasound Narrative: CT abd stone protocol IMPRESSION: 1. SINGLE 2 MM LEFT UVJ STONE CAUSING [id number] OBSTRUCTION OF THE LEFT KIDNEY. 2. REMAINDER OF EXAM IS LIMITED WITHOUT CONTRAST. - Progress/Reassessment Chief Complaint: Abdominal Pain Departure - Departure Clinical Impression: Renal stone Disposition: Home self-care Condition: Good Instructions: Kidney Stones, [id number] Additional Instructions: Please follow up with urology by calling Dr Feng's office in the morning for appointment Referrals: Yamila Simmons, [employer]GER [Primary Care Provider] - Prescriptions: oxyCODONE HCL/ACETAMINOPHEN [Percocet 5 MG/325 MG] 1 tab PO Q4H PRN #20 tab PRN Reason: Pain Tamsulosin HCl [Flomax] 0.4 mg PO DAILY@1800 #30 cap
[2016-12-24 15:42] LABS: Urine Bilirubin Negative (NEGATIVE); Urine Ketone Negative (NEGATIVE); Urine Nitrite Negative (NEGATIVE); Urine Protein Negative (NEGATIVE); Urine Specific Gravity <=1.005 SP.GR. (1.005-1.010); Urine Urobilinogen Normal (NORMAL); Urine pH 6.5 pH (5.0-7.0)
[2016-12-24] MEDS ORDERED: PHENAZOPYRIDINE HCL 100 MG TABLET ONE (15:46)
[2016-12-24 15:56] LABS: Urine Appearance Clear; Urine Blood 5 /ul (NEGATIVE); Urine Color Pale Yellow
[2016-12-24 15:57] LABS: Urine Bacteria None Seen; Urine RBC 0-5 /hpf (0-5); Urine WBC None Seen /hpf (0-5)
[2016-12-24 16:20] LABS: Hemoglobin 13.2 gm/dL (12.5-16.0); Mean Cell Volume 88.6 fl (78-100); Mean Corpuscular Hgb Conc 33.8 g/dl (32-36); Mean Platelet Volume 10.7 fl (6.0-9.5); Neutrophil # 8.2 K/mm3 (1.3-6.0); Neutrophil % 80.4 % (42-75.0); Platelet Count 192 K/mm3 (150-450); Red Cell Distribution Width 12.9 % (11.5-14.0); White Blood Count 10.2 K/mm3 (4.0-10.5)
[2016-12-24 16:33] LABS: Albumin * 3.7 gm/dl (3.4-5.0); Anion Gap 14.1 mmol/L (6.8-13.8); BUN/Creatinine Ratio 15.5 (9.0-21.6); Bilirubin, Total 0.7 mg/dL (0.0-1.1); Ca. Corrected For Albumin 9.4 mg/dL (8.4-10.2); Calcium * 9.5 mg/dL (7.9-10.9); Carbon Dioxide 25.8 mmol/L (24-32.6); Potassium 3.9 mmol/L (3.4-4.6); Total Protein 7.4 gm/dL (6.2-8.2)
[2016-12-24] MEDS ORDERED: HYDROmorphone HCL 1 MG/ML DISP.SYRIN IM ONE (17:02)
[2016-12-24] MEDS ORDERED: HYDROmorphone HCL 1 MG/ML DISP.SYRIN ONE (17:03)
[2016-12-24] MEDS ORDERED: CLONIDINE HCL 0.1 MG TABLET PO ONE (17:37)
[2016-12-24] MEDS ORDERED: CLONIDINE HCL 0.1 MG TABLET ONE (17:41)
[2016-12-24] MEDS ORDERED: oxyCODONE HCL/ACETAMINOPHEN 1 TAB TABLET PO ONE (18:11)
[2016-12-24] MEDS ORDERED: oxyCODONE HCL/ACETAMINOPHEN 1 TAB TABLET ONE (18:12)
[2016-12-24] MEDS ORDERED: TAMSULOSIN HCL 0.4 MG CAP.SR.24H PO ONE ×2 (18:17→18:18)
[2016-12-24 19:16] VITALS: BP 173/81
== END 2016-12-24 18:25 | disposition home or self-care (01) ==
LOC: ER 15:05
DX: N20.0 Calculus of kidney (principal)

== ENCOUNTER 2016-12-28 10:54 | Day surgery (SDC) | payer MEDICARE, BC ==
[~2016-12-28 10:54] MED LIST: ACETAMINOPHEN WITH CODEINE 1 EACH TABLET PO PRN; AMPICILLIN SODIUM 1,000 MG in NORMAL SALINE 100 ML IV PRN; GENTAMICIN SULFATE 80 MG in DEXTROSE 5 % IN WATER 100 ML IV PRN; KETOROLAC TROMETHAMINE 15 MG/ML VIAL IV PRN; MORPHINE SULFATE 2 MG/ML DISP.SYRIN IV PRN; ONDANSETRON HCL/PF 2 MG/ML VIAL IV PRN; OXYBUTYNIN CHLORIDE 5 MG TABLET PO PRN; RINGER'S SOLUTION,LACTATED 1,000 ML IV PRN; oxyCODONE HCL/ACETAMINOPHEN 1 TAB TABLET PO PRN
[2016-12-28] MEDS ORDERED: RINGER'S SOLUTION,LACTATED 1,000 ML IV ONE ×2 (11:30→13:15)
[2016-12-28] MEDS ORDERED: ACETAMINOPHEN WITH CODEINE 1 EACH TABLET PO ONE (14:54)
[2016-12-28 15:11] VITALS: BP 141/73
== END 2016-12-28 10:55 | disposition home or self-care (01) ==
LOC: AMB 10:54
PROVIDERS: ATTEND Urology
PROC: 0T778DZ Dilation of Left Ureter with Intraluminal Device, Via Natural or Artificial Opening Endoscopic (ICD-10-PCS; 2016-12-28)
PROC: 0TC78ZZ Extirpation of Matter from Left Ureter, Via Natural or Artificial Opening Endoscopic (ICD-10-PCS; principal; 2016-12-28 12:00)
DX: N13.2 Hydronephrosis with renal and ureteral calculous obstruction (principal); Z68.22 Body mass index [BMI] 22.0-22.9, adult; Z87.891 Personal history of nicotine dependence

== ENCOUNTER 2017-01-04 06:53 | Day surgery (SDC) | payer MEDICARE, BC ==
[2017-01-04] MEDS ORDERED: LIDOCAINE HCL 10 APPL CARTRIDGE TP ONE (07:45)
[2017-01-04 08:10] VITALS: BP 127/64
== END 2017-01-04 06:54 | disposition home or self-care (01) ==
LOC: AMB 06:53
PROVIDERS: ATTEND Urology
PROC: 0TP98DZ Removal of Intraluminal Device from Ureter, Via Natural or Artificial Opening Endoscopic (ICD-10-PCS; principal; 2017-01-04 07:30)
DX: Z46.6 Encounter for fitting and adjustment of urinary device (principal); Z68.22 Body mass index [BMI] 22.0-22.9, adult; Z87.891 Personal history of nicotine dependence

== ENCOUNTER 2017-01-24 07:29 | Day surgery (SDC) | payer MEDICARE, BC ==
--- NOTE | 2017-01-24 08:03 | OR ---
Anesthesia Pre Procedure Eval Pre Procedure Evaluation: Last Vital Signs Temp 36.3 C L 01/24/17 07:35 Pulse 60 01/24/17 07:35 Resp 18 01/24/17 07:35 BP 149/67 01/24/17 07:35 Pulse Ox 96 01/24/17 07:35 PRE PROCEDURE EVALUATION:: DATE: 01/24/2017 TIME: 0800 INDICATIONS: Cervical neck pain. Multilevel DDD. PAST MEDICAL HISTORY: Patient has had cervical SILVESTRE done in the past. The last was approximately 2 years ago. Patient received relief from these injections. Patient states that she did pass out with the last injection. She request light sedation for this procedure. EXAM: Lungs clear and equal. Heart rate regular. Radicular cervical neck pain. The pain radiates into her shoulders and up into the back of her skull. ASSESSMENT OF MEDICAL STATUS: Procedure risks and benefits were explained to and accepted by the patient. No contraindication to epidural steroid injection. PLANNED PROCEDURE : Fluoroscopy-guided epidural straight injection at C6 7. Home Medications: HOME MEDICATIONS Aspirin [Aspirin Enteric Coated] 81 mg PO DAILY 01/06/13 [Last Taken Unknown] LORazepam [Ativan] 1 mg PO TID PRN 01/06/13 [Last Taken Unknown] PARoxetine HCL [Paxil] 40 mg PO HS 01/06/13 [Last Taken Unknown] Bupropion HCl [Wellbutrin] 75 mg PO DAILY 11/26/14 [Last Taken Unknown] Diclofenac Sodium [Voltaren] 75 mg PO DAILY 11/26/14 [Last Taken Unknown] Pantoprazole Sodium 40 mg PO BID 12/01/14 [Last Taken Unknown] Cholecalciferol (Vitamin D3) [Vitamin D3] 10,000 unit PO DAILY 11/18/15 [Last Taken Unknown] Metoprolol Succinate [Toprol Xl] 25 mg PO DAILY 11/18/15 [Last Taken 12/16/15 07 :00] Simvastatin [Zocor] 10 mg PO HS 01/27/16 [Last Taken Unknown] L.acidoph,Paracasei, B.lactis [Probiotic] 1 each PO DAILY 04/25/16 [Last Taken Unknown] Liothyronine Sodium 5 mcg PO DAILY 04/25/16 [Last Taken Unknown] Levothyroxine Sodium [Tirosint] 50 mcg PO DAILY 11/01/16 [Last Taken Unknown] rOPINIRole HCL [Requip] 0.25 mg PO HS 11/01/16 [Last Taken Unknown] Alpha Lipoic Acid 600 mg PO DAILY 12/27/16 [Last Taken Unknown] Cyanocobalamin [Vitamin B-12] 1,000 mcg PO DAILY 12/27/16 [Last Taken Unknown] Losartan Potassium [Cozaar] 50 mg PO DAILY 12/27/16 [Last Taken Unknown] Multivitamins [Multivitamin Susan] 1 cap PO DAILY 12/27/16 [Last Taken Unknown] Zolpidem Tartrate [Ambien] 5 mg PO HS 12/27/16 [Last Taken Unknown]
[2017-01-24] MEDS ORDERED: RINGER'S SOLUTION,LACTATED 1,000 ML IV ONE (08:15)
[2017-01-24] MEDS ORDERED: IOPAMIDOL 20 ML VIAL IJ ONE (08:22)
[2017-01-24] MEDS ORDERED: DEXAMETHASONE SOD PHOSPHATE 10 MG/ML VIAL IJ ONE (08:25)
[2017-01-24] MEDS ORDERED: LIDOCAINE HCL/PF 5 ML VIAL IJ ONE (08:25)
--- NOTE | 2017-01-24 08:42 | OR ---
Anesthesia Procedure Note - Anesthesia Procedure Note Narrative: Vital Signs - Last Taken Temp 36.3 C L 01/24/17 07:35 Pulse 60 01/24/17 07:35 Resp 18 01/24/17 07:35 BP 149/67 01/24/17 07:35 Pulse Ox 96 01/24/17 07:35 01/24/17 08:38 ANESTHESIA PROCEDURE NOTE Date of Procedure: 01/24/2017 Time of procedure: 8:15. Performed by: Nikko Coleman CRNA [place] Stained Glass: None. Preprocedure diagnosis: Radicular cervical neck pain. Multilevel DDD.. Post procedure diagnosis: Same. Procedure: Epidural Steroid Injection C7-T1.. Indications: Radicular cervical neck pain. Findings: See below. Details of the procedure: The patient was brought back to operating room #4. The patient was then placed in the prone position. A 22-gauge was started in patient's right arm. 4 mg of Versed was given IV push. Back of neck was prepped with DuraPrep. Patient was then draped in sterile fashion. Lidocaine 1 % was infiltrated to the skin and subcutaneous tissues at the level of the C7- T1 interspace. The epidural space was identified using a 20-gauge Tuohy needle with [id number] technique and fluoroscopic guidance. Dexamethasone 10 mg + 5 mL of 1% preservative-free lidocaine was administered to the epidural space after negative aspiration for blood and CSF. The Tuohy needle was removed intact. A Band-Aid was applied to the patient's back. The patient was then placed in a supine position for 5 minutes before returning to the ambulatory surgical unit. Total fluoroscopy time 18.1 seconds. Total dose 1.34 m/gy EBL: Minimal. Fluids: N/A. Specimen: N/A. Post procedure condition: The patient tolerated the procedure well. No complications were noted. Thank you for this consultation. Nikko Coleman CRNA
[2017-01-24 09:52] VITALS: BP 123/65
== END 2017-01-24 07:30 | disposition home or self-care (01) ==
LOC: AMB 07:29
PROVIDERS: ATTEND Nurse Practitioner
DX: M50.30 Other cervical disc degeneration, unspecified cervical region (principal)

== ENCOUNTER 2017-02-17 15:17 | Observation (INO) | payer MEDICARE, BC ==
[2017-02-17] MEDS ORDERED: ASPIRIN 325 MG TABLET.DR PO ONE (15:26)
[2017-02-17] MEDS ORDERED: DILTIAZEM HCL 5 MG/ML VIAL IV ONE ×2 (15:26→15:27)
[2017-02-17] MEDS ORDERED: ASPIRIN 325 MG TABLET.DR ONE (15:27)
[2017-02-17 15:38] LABS: Hematocrit 41.7 % (37.0-47.0); Hemoglobin 14.3 gm/dL (12.5-16.0); Mean Cell Volume 89.3 fl (78-100); Mean Corpuscular Hemoglobin 30.6 pg (27-31); Mean Corpuscular Hgb Conc 34.3 g/dl (32-36); Mean Platelet Volume 10.8 fl (6.0-9.5); Neutrophil # 2.8 K/mm3 (1.3-6.0); Neutrophil % 49.5 % (42-75.0); Platelet Count 191 K/mm3 (150-450); Red Blood Count 4.67 M/mm3 (4.2-5.4); Red Cell Distribution Width 13.2 % (11.5-14.0); White Blood Count 5.7 K/mm3 (4.0-10.5)
[2017-02-17 15:54] LABS: Partial Thrombolplastin Time 28.6 Seconds (24-32)
[2017-02-17 15:57] LABS: ALT 35 U/L (19-67); AST 28 U/L (0-48); Albumin * 3.5 gm/dl (3.4-5.0); Alkaline Phosphatase * 144 U/L (50-170); Anion Gap 15.9 mmol/L (6.8-13.8); BUN/Creatinine Ratio 17.5 (9.0-21.6); Bilirubin, Total 0.4 mg/dL (0.0-1.1); Blood Urea Nitrogen 17 mg/dL (3-23); Ca. Corrected For Albumin 9.4 mg/dL (8.4-10.2); Calcium * 9.3 mg/dL (7.9-10.9); Carbon Dioxide 23.6 mmol/L (24-32.6); Chloride 103 mmol/L (97-106); Glucose * 153 mg/dL (70-110); Potassium 3.5 mmol/L (3.4-4.6); Sodium 139 mmol/L (132-142); Total Protein 7.8 gm/dL (6.2-8.2); Troponin I Less than 0.017 ng/ml (0.00-0.10)
[2017-02-17] MEDS: DILTIAZEM HCL 125 MG in DEXTROSE 5 % IN WATER 100 ML IV PRN ×2 (16:01)
[2017-02-17] MEDS ORDERED: LORazepam 2 MG/ML DISP.SYRIN IV ONE (16:09)
[2017-02-17] MEDS ORDERED: LORazepam 2 MG/ML DISP.SYRIN ONE (16:09)
--- NOTE | 2017-02-17 17:16 | ERNOTE ---
Chest Pain/Cardiac HPI Chief Complaint: Chest Pain Time Seen by Provider: 02/17/17 15:23 Source: patient Exam Limitations: no limitations Immunizations: IMMUNIZATION HX Immunizations Up to Date Yes History of Influenza Vaccine Yes Hx Pneumococcal Vaccination Yes Allergies/Adverse Reactions: Allergies desvenlafaxine succinate [From Pristiq] Allergy (Mild, Verified 02/17/17 15:27) Headache morphine Allergy (Mild, Verified 02/17/17 15:27) hypotension metronidazole [From Flagyl] Allergy (Unknown, Verified 02/17/17 15:27) citalopram hydrobromide [From Celexa] Adverse Reaction (Mild, Verified 02/17/17 15:27) Headache cyclobenzaprine HCl [From Flexeril] Adverse Reaction (Mild, Verified 02/17/17 15 :27) Headache desipramine Adverse Reaction (Mild, Verified 02/17/17 15:27) Headache estradiol [From Vagifem] Adverse Reaction (Mild, Verified 02/17/17 15:27) Itching estrogens, conjugated [From Prempro] Adverse Reaction (Mild, Verified 02/17/17 15:27) Itching indomethacin Adverse Reaction (Mild, Verified 02/17/17 15:27) Headache levofloxacin [From Levaquin] Adverse Reaction (Mild, Verified 02/17/17 15:27) RASH medroxyprogesterone acetate [From Prempro] Adverse Reaction (Mild, Verified 15:27) Itching niacin Adverse Reaction (Mild, Verified 02/17/17 15:27) RASH topiramate [From Topamax] Adverse Reaction (Mild, Verified 02/17/17 15:27) Headache triazolam [From Halcion] Adverse Reaction (Mild, Verified 02/17/17 15:27) Itching Home Medications: HOME MEDICATIONS Aspirin [Aspirin Enteric Coated] 81 mg PO DAILY 01/06/13 [Last Taken Unknown] LORazepam [Ativan] 1 mg PO TID PRN 01/06/13 [Last Taken Unknown] PARoxetine HCL [Paxil] 40 mg PO HS 01/06/13 [Last Taken Unknown] Bupropion HCl [Wellbutrin] 75 mg PO DAILY 11/26/14 [Last Taken Unknown] Diclofenac Sodium [Voltaren] 75 mg PO DAILY 11/26/14 [Last Taken Unknown] Pantoprazole Sodium 40 mg PO BID 12/01/14 [Last Taken Unknown] Cholecalciferol (Vitamin D3) [Vitamin D3] 10,000 unit PO DAILY 11/18/15 [Last Taken Unknown] Metoprolol Succinate [Toprol Xl] 25 mg PO DAILY 11/18/15 [Last Taken 12/16/15 07 :00] Simvastatin [Zocor] 10 mg PO HS 01/27/16 [Last Taken Unknown] L.acidoph,Paracasei, B.lactis [Probiotic] 1 each PO DAILY 04/25/16 [Last Taken Unknown] Levothyroxine Sodium [Tirosint] 50 mcg PO DAILY 11/01/16 [Last Taken Unknown] Alpha Lipoic Acid 600 mg PO DAILY 12/27/16 [Last Taken Unknown] Cyanocobalamin [Vitamin B-12] 1,000 mcg PO DAILY 12/27/16 [Last Taken Unknown] Zolpidem Tartrate [Ambien] 10 mg PO HS 12/27/16 [Last Taken Unknown] Albuterol Sulfate [Albuterol Sulfate 2.5 MG/0.5ML] 1 vial IH TID 02/17/17 [Last Taken Unknown] Narrative: Patient presents to the ED with heart racing and chest heaviness. She relates that she has had a headache and cough for several days. Today she developed heart racing/pounding and tightness in her chest. She has a history of a fib with Hx ablation. She has had two episodes of this since her ablation but both of those have resolved without treatment. She relates this one persisted so she was driven here by her . No fever. No vomiting. She denies acute SOB but states that with the cough she has been mildly SOB for the last couple of days. No calf pain or leg swelling. No pleuritic pain. She tells me she feels anxious and took half her her ativan anxiety pill at home earlier. Timing: constant Severity/Quality: moderate Location: other - anterior chest tightness Chest Pain Radiation: no radiation Activities at Onset: none Modifying Factors - Improves: Present: nothing Modifying Factors - Worsens: Present: nothing Nitro Today/Relief: no nitro taken today Associated Symptoms: Present: headache, palpitations. Absent: fever/chills, nausea, vomiting, abdominal pain, weakness Prior Chest Pain/Cardiac Workup: Reports: other - prior ablation for a fib Prior Treatment: Denies: recently seen Review of Systems - Review of Systems Constitutional: Absent: fever EYE: Absent: vision changes ENT: Absent: sore throat Respiratory: Present: See HPI Cardiology: Present: See HPI Gastrointestinal/Abdominal: Absent: abdominal pain Neurological: Present: anxiety. Absent: weakness All Other Systems: All systems neg except as marked - Patient's Past Medical History Patient History - Medical: Anxiety, Depression, Fibromyalgia, GERD, Hypothyroidism, Migraines, Rheumatoid Arthritis Patient History - Cardiac/Respiratory: Atrial Fibrillation, COPD, Hyperlipidemia , Sleep Apnea Patient History - Cancer: No Hx of Cancer Patient History - Surgical Procedures: Appendectomy, , Hysterectomy, Tubal Ligation, Other Patient History - Other: None LMP (females 10-50): post - Family History Father Family History - Medical: , Diabetes Type 2 Family History - Cardiac/Respiratory: Other Family History - Cancer: No pertinent family hx Mother Family History - Medical: , No pertinent hx Family History - Cardiac/Respiratory: No pertinent hx, Hypertension Family History - Cancer: History Unknown - Social History Living Situations: home Abuse History: No History of abuse Psych History: Hx of Anxiety, Hx of Depression, Current tx/ever been on anti- depressants or anti-anxiety meds Smoking Status: Never smoker - Immunizations Immunizations Up to Date: Yes Hx Pneumococcal Vaccination: Yes History of Influenza Vaccine: Yes Physical Exam - Physical Exam General Appearance: Present: alert, no apparent distress Head Exam: Present: normal inspection, no evidence of injury Eye Exam: Normal inspection: bilateral, PERRL: bilateral Ears, Nose, Throat: Present: normal ENT inspection Neck: Present: normal inspection Respiratory: Present: no respiratory distress, normal breath sounds, no accessory muscle use, lungs clear Cardiovascular/Chest: Present: normal peripheral pulses, tachycardia, irregularly irregular Gastrointestinal/Abdominal: Present: normal bowel sounds, nontender, soft. 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 Absent: motor weakness Skin Exam: Present: normal color, warm/dry ED Progress - Results and Orders Patient's Lab Results:: I have reviewed the patient's lab results. - Vital Signs Patient's Vital Signs:: I have reviewed the patient's vital signs. Vital Signs: Vital Signs 02/17/17 02/17/17 02/17/17 15:19 15:29 15:31 Temperature 36.3 C L Pulse Rate 122 H 168 H 139 H Respiratory 31 H 21 H Rate Blood Pressure 183/126 183/126 153/78 O2 Sat by Pulse 96 92 Oximetry 02/17/17 02/17/17 02/17/17 15:38 15:51 16:01 Temperature Pulse Rate 102 H 122 H 129 H Respiratory 23 H 19 Rate Blood Pressure 132/80 122/78 122/78 O2 Sat by Pulse 94 94 Oximetry 02/17/17 02/17/17 02/17/17 16:03 16:17 16:41 Temperature Pulse Rate 127 H 124 H 142 H Respiratory 16 17 26 H Rate Blood Pressure 115/62 115/62 O2 Sat by Pulse 95 95 96 Oximetry - EKG EKG read: Interp. by me EKG Comments: A fib RVR. There are diffuse ST depressions, likely rate related. No clear evidence of STEMI - X-Ray X-Ray #1 X-Ray: chest Interpretation: Interp. by me X-ray Comments: I reviewed official radiology report - Progress/Reassessment Chief Complaint: Chest Pain Progress Note-Subjective: 02/17/17 17:12 Patient given IV Cardizem on arrival, this brought her HR to 120s -130s. All her her chest pain resolved with this. She could still feel her heart beating irregularly but no chest pain/tightness/pressure. I placed her on a cardizem drip and she was primarily between 100-125 with this. She asked for something for anxiety as her HR would go up with anyone in the room with her or when she was being talked to. Ativan given IV which she takes at home. She felt much improved with this. Her HR would go below 100 then pop up 120s/130, fairly labile but she was entirely symptom free. I spoke with Dr Bedoya who will admit the patient SCU. Patient agreeable and questions answered. Departure Clinical Impression: Atrial fibrillation with RVR - Departure Disposition: [facility] Condition: Stable
--- NOTE | 2017-02-17 21:26 | HP ---
Chief Complaint - Chief Complaint Date of Service: 02/17/17 Time of Service: 20:26 Chief Complaint: chest pain , palpitation History of Present Illness: 71 years old WF adm to the hospital with reports of chest pain and palpitation. PMH significant for A-fib s/p ablation 2010 at [facility], hypertension, hypothyroidism, panic attack and kidney stones. pt stated approximately 2;30p today while at home she began having sudden onset of pain in shoulder radiating to chest. Associated s/s palpitation,blurred vision, weakness, dizziness, nausea and shortness of breath. She denies Diaphoresis, vomiting, diarrhea, cough,fever or chills. Pt stated she was concerned because she had afib with ablation in the past. So her drove her to the ER. Since the ablation in 2010, she had other episode of a-fib that resolved without treatment.In ER CXR:Viral etiology vs reactive airway disease, no focal consolidation superimposed upon COPD. cardiac markers negative. Plan of care discussed with pt and family they verbalized understanding and agree. - Patient's Past Medical History Patient History - Medical: Anxiety, Depression, Fibromyalgia, GERD, Hypothyroidism, Migraines, Rheumatoid Arthritis Patient History - Cardiac/Respiratory: Atrial Fibrillation, COPD, Hyperlipidemia , Sleep Apnea Patient History - Cancer: No Hx of Cancer Patient History - Surgical Procedures: Appendectomy, , Hysterectomy, Tubal Ligation, Other Patient History - Other: None LMP (females 10-50): post - Family History Father Family History - Medical: , Diabetes Type 2 Family History - Cardiac/Respiratory: Other Family History - Cancer: No pertinent family hx Mother Family History - Medical: , No pertinent hx Family History - Cardiac/Respiratory: No pertinent hx, Hypertension Family History - Cancer: History Unknown - Social History Living Situations: home Abuse History: No History of abuse Psych History: Hx of Anxiety, Hx of Depression, Current tx/ever been on anti- depressants or anti-anxiety meds Smoking Status: Former smoker Have you smoked in the past 12 months: No Patient requests Smoking Cessation Consult: No Initiate information on Smoking Cessation: No Alcohol Use: none Drug Use: none - Immunizations Immunizations Up to Date: Yes Hx Pneumococcal Vaccination: Yes History of Influenza Vaccine: Yes Review Of Systems (GEN) - Review of Systems Generalized/Overall Review: Present: No Symptoms Reported EENTM: Present: No Symptoms Reported Respiratory: Present: Shortness of Breath Cardiac: Present: Palpitations Abdominal: Present: No Symptoms Reported Genitourinary: Present: No Symptoms Reported Musculoskeletal: Present: No Symptoms Reported Neurological: Present: No Symptoms Reported Skin: Present: No Symptoms Reported Immunizations: IMMUNIZATION HX Immunizations Up to Date Yes History of Influenza Vaccine Yes Hx Pneumococcal Vaccination Yes Allergies/Adverse Reactions: Allergies Allergy/AdvReac Type Severity Reaction Status Date / Time desvenlafaxine succinate Allergy Mild Headache Verified 02/17/17 18:45 [From Pristiq] morphine Allergy Mild hypotension Verified 02/17/17 18:45 metronidazole [From Flagyl] Allergy Unknown Verified 02/17/17 18:45 citalopram hydrobromide AdvReac Mild Headache Verified 02/17/17 18:45 [From Celexa] cyclobenzaprine HCl AdvReac Mild Headache Verified 02/17/17 18:45 [From Flexeril] desipramine AdvReac Mild Headache Verified 02/17/17 18:45 estradiol [From Vagifem] AdvReac Mild Itching Verified 02/17/17 18:45 estrogens, conjugated AdvReac Mild Itching Verified 02/17/17 18:45 [From Prempro] indomethacin AdvReac Mild Headache Verified 02/17/17 18:45 levofloxacin [From Levaquin] AdvReac Mild RASH Verified 02/17/17 18:45 medroxyprogesterone acetate AdvReac Mild Itching Verified 02/17/17 18:45 [From Prempro] niacin AdvReac Mild RASH Verified 02/17/17 18:45 topiramate [From Topamax] AdvReac Mild Headache Verified 02/17/17 18:45 triazolam [From Halcion] AdvReac Mild Itching Verified 02/17/17 18:45 Home Medications: HOME MEDICATIONS Aspirin [Aspirin Enteric Coated] 81 mg PO DAILY 01/06/13 [Last Taken Unknown] LORazepam [Ativan] 1 mg PO TID PRN 01/06/13 [Last Taken Unknown] PARoxetine HCL [Paxil] 40 mg PO HS 01/06/13 [Last Taken Unknown] Bupropion HCl [Wellbutrin] 75 mg PO DAILY 11/26/14 [Last Taken Unknown] Diclofenac Sodium [Voltaren] 75 mg PO DAILY 11/26/14 [Last Taken Unknown] Pantoprazole Sodium 40 mg PO BID 12/01/14 [Last Taken Unknown] Cholecalciferol (Vitamin D3) [Vitamin D3] 10,000 unit PO DAILY 11/18/15 [Last Taken Unknown] Metoprolol Succinate [Toprol Xl] 25 mg PO BID 11/18/15 [Last Taken 12/16/15 07: 00] Simvastatin [Zocor] 10 mg PO HS 01/27/16 [Last Taken Unknown] L.acidoph,Paracasei, B.lactis [Probiotic] 1 each PO DAILY 04/25/16 [Last Taken Unknown] Levothyroxine Sodium [Tirosint] 50 mcg PO DAILY 11/01/16 [Last Taken Unknown] Alpha Lipoic Acid 600 mg PO DAILY 12/27/16 [Last Taken Unknown] Cyanocobalamin [Vitamin B-12] 1,000 mcg PO DAILY 12/27/16 [Last Taken Unknown] Zolpidem Tartrate [Ambien] 10 mg PO HS 12/27/16 [Last Taken Unknown] Albuterol Sulfate [Albuterol Sulfate 2.5 MG/0.5ML] 1 vial IH TID 02/17/17 [Last Taken Unknown] rOPINIRole HCL [Requip] 0.25 mg PO HS 02/17/17 [Last Taken Unknown] Exam - Exam Vital Signs: Vital Signs - Last Taken Temp 37.2 C 02/17/17 19:53 Pulse 117 H 02/17/17 19:53 Resp 16 02/17/17 19:53 BP 105/58 02/17/17 19:53 Pulse Ox 96 02/17/17 19:53 Constitutional: Present: Alert, Oriented x3, Cooperative, No distress, Middle aged ENT Exam: Present: hearing grossly normal Eye Exam: bilateral eye: normal inspection Neck: Present: full range of motion Back Exam: Present: normal inspection Respiratory: Present: chest non-tender, lungs clear, normal breath sounds, no respiratory distress Cardiovascular/Chest: Present: normal peripheral pulses, no chest tenderness, no edema, irregularly irregular Peripheral Pulses: dorsalis-pedis (R): 2+, dorsalis-pedis (L): 2+ Abdomen: Present: Normal bowel sounds, soft, nontender, nondistended /Rectal: Present: Exam deferred Extremity: Present: normal range of motion, non-tender, normal inspection Skin Exam: Present: warm/dry Neurologic: Present: oriented x 3 Appearance: Present: appropriate appearance Eye contact: Present: cooperative Thoughts: Present: normal thought pattern Diagnostic Studies: Laboratory Results WBC 5.7 K/mm3 (4.0-10.5) 02/17/17 15:30 RBC 4.67 M/mm3 (4.2-5.4) 02/17/17 15:30 Hgb 14.3 gm/dL (12.5-16.0) 02/17/17 15:30 Hct 41.7 % (37.0-47.0) 02/17/17 15:30 MCV 89.3 fl (78-100) 02/17/17 15:30 MCH 30.6 pg (27-31) 02/17/17 15:30 MCHC 34.3 g/dl (32-36) 02/17/17 15:30 RDW 13.2 % (11.5-14.0) 02/17/17 15:30 Plt Count 191 K/mm3 (150-450) 02/17/17 15:30 MPV 10.8 fl (6.0-9.5) H 02/17/17 15:30 Immature Gran % (Auto) 0.20 % (0.001-0.429) 02/17/17 15:30 Immature Gran # (Auto) 0.01 K/mm3 (0.000-0.0310) 02/17/17 15:30 Neutrophils % 49.5 % (42-75.0) 02/17/17 15:30 Lymphocytes % 29.0 % (20-51) 02/17/17 15:30 Monocytes % 15.2 % (0.0-9) H 02/17/17 15:30 Eosinophils % 5.4 % (0.0-3.0) H 02/17/17 15:30 Basophils % 0.7 % (0.0-1.0) 02/17/17 15:30 Nucleated RBC % 0.0 k/mm3 (0-1) 02/17/17 15:30 Neutrophils # 2.8 K/mm3 (1.3-6.0) 02/17/17 15:30 Lymphocytes # 1.7 k/mm3 (1.5-3.5) 02/17/17 15:30 Monocytes # 0.9 k/mm3 (0.0-1.0) 02/17/17 15:30 Eosinophils # 0.3 k/mm3 (0.0-0.7) 02/17/17 15:30 Absolute Basophils 0.0 k/mm3 (0.0-0.1) 02/17/17 15:30 PT 10.0 Seconds (9.0-11.0) 02/17/17 15:30 INR (Anticoag Therapy) 1.00 INR (0.90-1.10) 02/17/17 15:30 PTT (Moca) 28.6 Seconds (24-32) 02/17/17 15:30 Sodium 139 mmol/L (132-142) 02/17/17 15:30 Plasma Sodium 140 mmol/L (130-142) 02/17/17 15:30 Potassium 3.5 mmol/L (3.4-4.6) 02/17/17 15:30 Chloride 103 mmol/L (97-106) 02/17/17 15:30 Carbon Dioxide 23.6 mmol/L (24-32.6) L 02/17/17 15:30 Anion Gap 15.9 mmol/L (6.8-13.8) H 02/17/17 15:30 BUN 17 mg/dL (3-23) 02/17/17 15:30 Creatinine 0.97 mg/dL (0.4-1.4) 02/17/17 15:30 Est GFR (Non-Af Amer) 61 mL/min (60-130) 02/17/17 15:30 BUN/Creatinine Ratio 17.5 (9.0-21.6) 02/17/17 15:30 Random Glucose 153 mg/dL (70-110) H 02/17/17 15:30 Calcium 9.3 mg/dL (7.9-10.9) 02/17/17 15:30 Calcium Adj for Albumin 9.4 mg/dL (8.4-10.2) 02/17/17 15:30 Total Bilirubin 0.4 mg/dL (0.0-1.1) 02/17/17 15:30 AST 28 U/L (0-48) 02/17/17 15:30 ALT 35 U/L (19-67) 02/17/17 15:30 Alkaline Phosphatase 144 U/L (50-170) 02/17/17 15:30 Troponin I Less than 0.017 ng/ml (0.00-0.10) 02/17/17 15:30 B-Natriuretic Peptide 626 pg/mL (5-325) H 02/17/17 15:30 Total Protein 7.8 gm/dL (6.2-8.2) 02/17/17 15:30 Albumin 3.5 gm/dl (3.4-5.0) 02/17/17 15:30 CXR: Viral etiology vs reactive airway disease, no focal consolidation superimposed upon COPD. Assessment/Plan - Narrative Narrative: A-fib with RVR seen on EKG while in the ER, pt report palpitation while at home Cardizem 20mg x1, continue with drip and placed on unit [id number] vasc score 3 Since her last ablation she has been on aspirin 81mg Continue with Telemetry monitoring ? 2-D echo Renal stones pt was seen by urologist a few weeks ago She had stent placed and later removed COPD- stable Continue with home medications Albuterol PRN Anxiety and depression- stable May resume home medications Code status: Full VTE ppx:SCD GI ppx: protonix Time 30 minutes and case discussed with Dr Bedoya. - Assessment/Plan (1) Atrial fibrillation with RVR Problem: Acute (2) Renal stone Problem: Chronic (3) Anxiety and depression Problem: Chronic (4) COPD (chronic obstructive pulmonary disease) Problem: Chronic (5) Chest pain Problem: Resolved Qualifiers: Chest pain type: unspecified Qualified Code(s): R07.9 - Chest pain, unspecified
[2017-02-17] MEDS ORDERED: LORazepam 1 MG TABLET PO PRN (21:56)
[2017-02-17] MEDS ORDERED: SIMVASTATIN 20 MG TABLET ONE (22:39)
[2017-02-17] MEDS ORDERED: rOPINIRole HCL 1 MG TABLET ONE (22:40)
[2017-02-17] MEDS ORDERED: PARoxetine HCL 20 MG TABLET PO SCH (23:00)
[2017-02-17] MEDS ORDERED: rOPINIRole HCL 0.5 MG TABLET PO SCH (23:00)
[2017-02-17] MEDS ORDERED: SIMVASTATIN 10 MG TABLET PO SCH (23:00)
[2017-02-17] MEDS ORDERED: ZOLPIDEM TARTRATE 5 MG TABLET PO SCH (23:00)
[2017-02-18] MEDS: DILTIAZEM HCL 125 MG in DEXTROSE 5 % IN WATER 100 ML IV PRN ×2 (00:08)
[2017-02-18] MEDS ORDERED: ALBUTEROL SULFATE 2.5 MG/0.5 ML VIAL.NEB IH ONE (05:54)
[2017-02-18] MEDS ORDERED: ALBUTEROL SULFATE 2.5 MG/0.5 ML VIAL.NEB IH PRN (06:12)
[2017-02-18] MEDS ORDERED: LEVOTHYROXINE SODIUM 50 MCG TABLET PO SCH (07:00)
[2017-02-18] MEDS ORDERED: ALBUTEROL SULFATE 2.5 MG/0.5 ML VIAL.NEB IH SCH (07:00)
[2017-02-18] MEDS ORDERED: PANTOPRAZOLE SODIUM 40 MG TABLET.EC PO SCH (07:00)
[2017-02-18] MEDS ORDERED: CHOLECALCIFEROL 10000 UNIT PO SCH (09:00)
[2017-02-18] MEDS ORDERED: CYANOCOBALAMIN 1,000 MCG TABLET PO SCH (09:00)
[2017-02-18] MEDS ORDERED: LACTOBACILLUS ACIDOPHILUS 100 CAP BTL PO SCH (09:00)
[2017-02-18] MEDS ORDERED: DICLOFENAC SODIUM 75 MG TABLET.DR PO SCH (09:00)
[2017-02-18] MEDS ORDERED: ASPIRIN 81 MG TABLET.DR PO SCH (09:00)
[2017-02-18] MEDS ORDERED: BUPROPION HCL 75 MG PO SCH (09:00)
[2017-02-18] MEDS ORDERED: ALPHA LIPOIC ACID 600 MG PO SCH (09:00)
[2017-02-18 10:28] VITALS: BP 113/72
[2017-02-18] MEDS ORDERED: METOPROLOL SUCCINATE 50 MG TABLET.SA PO SCH (10:30)
--- NOTE | 2017-02-18 14:19 | DS ---
(1) Atrial fibrillation with RVR Problem: Acute Description of Stay: ADMISSION DATE: 02/17/2017 DISCHARGE DATE: 02/18/2017 ADMISSION HPI by SARA Brower: 71 years old WF adm to the hospital with reports of chest pain and palpitation. PMH significant for A-fib s/p ablation 2010 at [facility], hypertension, hypothyroidism, panic attack and kidney stones. pt stated approximately 2;30p today while at home she began having sudden onset of pain in shoulder radiating to chest. Associated s/s palpitation,blurred vision, weakness, dizziness, nausea and shortness of breath. She denies Diaphoresis, vomiting, diarrhea, cough,fever or chills. Pt stated she was concerned because she had afib with ablation in the past. So her drove her to the ER. Since the ablation in 2010, she had other episode of a-fib that resolved without treatment.In ER CXR:Viral etiology vs reactive airway disease, no focal consolidation superimposed upon COPD. cardiac markers negative. Plan of care discussed with pt and family they verbalized understanding and agree. HOSPITAL COURSE: The patient was admitted to hospital with new onset atrial fibrillation with RVR. The patient does have a history of atrial flutter. The patient was treated with a Cardizem drip and her home metoprolol dose was increased prior to discontinuing the Cardizem drip. The patient remained in atrial fibrillation but was asymptomatic and her heart rate was controlled prior to discharge. Unfortunately do not have any of the patients outside records for review but her [id number] Score is at least 3 [CHF (diastolic dysfunction)=1, Age=1, Female=1]. The patient does follow with receivable executive, Dr. Kelly, and I discussed the patients case with her prior to the patient being discharged. Dr. Kelly agreed that the patient should be on anticoagulation and thus the patient was discharged on Xarelto. The patient was discharged in stable condition and instructed to follow-up with her primary care provider within 1-2 weeks. FOLLOW-UP APPOINTMENTS: -Follow-up with PCP, Yamila Simmons within 1-2 weeks -Schedule a new patient appointment with Dr. Bedoya at the next availability -[facility], Dr. Kelly, as previously scheduled NEW OR CHANGED MEDICATIONS: -Metoprolol succinate 50mg PO BID -Xarelto 15mg PO BID X 21 days and then transition to 20mg daily DISCONTINUED MEDICATIONS: -Diclofenac RADIOLOGY REPORTS: PA and lateral chest x-ray on 02/17/2017 showed: There are increased perihilar interstitial densities with peribronchial cuffing indicative of viral etiology versus reactive airway disease. Clinical correlation is advised. No focal consolidation. We identified COPD change. Cardiac silhouette is within normal limits. Costophrenic angles are sharp. Osseous structures are normal for age. IMPRESSION: Viral etiology versus reactive airway disease, clinical correlation is advised. No focal consolidation. Findings are superimposed upon COPD. Procedures Performed: none Results and Findings: Laboratory Tests 02/17/17 02/17/17 02/17/17 15:30 15:30 15:30 WBC 5.7 Hgb 14.3 Hct 41.7 Plt Count 191 Sodium 139 Plasma Sodium 140 Potassium 3.5 Chloride 103 Carbon Dioxide 23.6 L Anion Gap 15.9 H BUN 17 Creatinine 0.97 Est GFR (Non-Af Amer) 61 BUN/Creatinine Ratio 17.5 Random Glucose 153 H Calcium 9.3 Calcium Adj for Albumin 9.4 Total Bilirubin 0.4 AST 28 ALT 35 Alkaline Phosphatase 144 Troponin I Less than 0.017 B-Natriuretic Peptide 626 H Total Protein 7.8 Albumin 3.5 02/18/17 05:35 WBC Hgb Hct Plt Count Sodium Plasma Sodium Potassium Chloride Carbon Dioxide Anion Gap BUN Creatinine Est GFR (Non-Af Amer) BUN/Creatinine Ratio Random Glucose Calcium Calcium Adj for Albumin Total Bilirubin AST ALT Alkaline Phosphatase Troponin I B-Natriuretic Peptide 2587 H Total Protein Albumin Discharge Disposition: Home self care Disposition: Home self-care Condition: Stable Discharge Activity: Activity as tolerated Discharge Diet: General/regular food, Resume usual diet Referrals: Yamila Simmons, [employer] [[facility]] - Problem Oriented Discharge Instructions to Patient/Family: Atrial Fibrillation , [id number] Additional Patient Instructions (free text): -Follow-up with PCPYamila within 1-2 weeks 03/04 at 9:30 -Schedule a new patient appointment with Dr. Bedoya at the next availability at 11:00 Prescriptions (Any new or edited meds): Metoprolol Succinate [Toprol Xl] 50 mg PO BID #60 tablet.sa Rivaroxaban [Xarelto] 20 mg PO DAILY #30 tablet Rivaroxaban [Xarelto] 15 mg PO BID 21 Days #42 tablet Complete Home Medications List: Complete Home Medication List: Aspirin [Aspirin Enteric Coated] 81 mg PO DAILY 01/06/13 LORazepam [Ativan] 1 mg PO TID PRN 01/06/13 PARoxetine HCL [Paxil] 40 mg PO HS 01/06/13 Bupropion HCl [Wellbutrin] 75 mg PO DAILY 11/26/14 Pantoprazole Sodium 40 mg PO BID 12/01/14 Cholecalciferol (Vitamin D3) [Vitamin D3] 10,000 unit PO DAILY 11/18/15 Simvastatin [Zocor] 10 mg PO HS 01/27/16 L.acidoph,Paracasei, B.lactis [Probiotic] 1 each PO DAILY 04/25/16 Levothyroxine Sodium [Tirosint] 50 mcg PO DAILY 11/01/16 Alpha Lipoic Acid 600 mg PO DAILY 12/27/16 Cyanocobalamin [Vitamin B-12] 1,000 mcg PO DAILY 12/27/16 Zolpidem Tartrate [Ambien] 10 mg PO HS 12/27/16 Albuterol Sulfate [Albuterol Sulfate 2.5 MG/0.5ML] 1 vial IH TID 02/17/17 rOPINIRole HCL [Requip] 0.25 mg PO HS 02/17/17 Metoprolol Succinate [Toprol Xl] 50 mg PO BID #60 tablet.sa 02/18/17 Rivaroxaban [Xarelto] 15 mg PO BID 21 Days #42 tablet 02/18/17 Rivaroxaban [Xarelto] 20 mg PO DAILY #30 tablet 02/18/17
[2017-02-18] MEDS ORDERED: ZOLPIDEM TARTRATE 10 MG TABLET PO SCH (21:00)
[2017-02-19] MEDS ORDERED: LACTOBACILLUS ACIDOPHILUS 100 CAP BTL PO SCH (09:00)
[2017-02-19] MEDS ORDERED: ALPHA LIPOIC ACID 600 MG PO SCH (09:00)
== END 2017-02-18 15:11 | disposition home or self-care (01) ==
LOC: ER 15:17 → SCU 16:56 → MS 02-18 12:16
PROVIDERS: ADMIT Internal Medicine; ATTEND Internal Medicine
DX: I48.2 Chronic atrial fibrillation (principal); F41.8 Other specified anxiety disorders; J44.9 Chronic obstructive pulmonary disease, unspecified; Z87.891 Personal history of nicotine dependence; E78.5 Hyperlipidemia, unspecified; E03.9 Hypothyroidism, unspecified; G47.30 Sleep apnea, unspecified; M06.9 Rheumatoid arthritis, unspecified; Z68.22 Body mass index [BMI] 22.0-22.9, adult
CPT/HCPCS: 36415; 71020; 80053; 83880; 84484; 85025; 85610; 85730; 93005; 96365; 96375; 99285; G0378

== ENCOUNTER 2017-03-30 08:20 | Observation (INO) | payer MEDICARE, BC ==
[2017-03-30] MEDS ORDERED: DILTIAZEM HCL 5 MG/ML VIAL IV ONE ×3 (08:33→12:36)
[2017-03-30 08:49] LABS: Hematocrit 39.4 % (37.0-47.0); Hemoglobin 13.2 gm/dL (12.5-16.0); Mean Corpuscular Hemoglobin 30.1 pg (27-31); Mean Corpuscular Hgb Conc 33.5 g/dl (32-36); Mean Platelet Volume 10.3 fl (6.0-9.5); Neutrophil # 2.6 K/mm3 (1.3-6.0); Neutrophil % 45.7 % (42-75.0); Platelet Count 169 K/mm3 (150-450); Red Blood Count 4.38 M/mm3 (4.2-5.4); Red Cell Distribution Width 13.8 % (11.5-14.0); White Blood Count 5.6 K/mm3 (4.0-10.5)
[2017-03-30 09:08] LABS: Troponin I 0.017 ng/ml (0.00-0.10)
[2017-03-30] MEDS ORDERED: DILTIAZEM HCL 125 MG in DEXTROSE 5 % IN WATER 100 ML IV PRN ×2 (09:08)
--- NOTE | 2017-03-30 09:08 | ERNOTE ---
Chest Pain/Cardiac HPI Date of Service: 03/30/17 Chief Complaint: Chest Pain Time Seen by Provider: 03/30/17 08:23 Source: patient Exam Limitations: no limitations Immunizations: IMMUNIZATION HX Immunizations Up to Date Yes History of Influenza Vaccine Yes Hx Pneumococcal Vaccination Yes Allergies/Adverse Reactions: Allergies desvenlafaxine succinate [From Pristiq] Allergy (Mild, Verified 03/30/17 08:30) Headache morphine Allergy (Mild, Verified 03/30/17 08:30) hypotension metronidazole [From Flagyl] Allergy (Unknown, Verified 03/30/17 08:30) citalopram hydrobromide [From Celexa] Adverse Reaction (Mild, Verified 03/30/17 08:30) Headache cyclobenzaprine HCl [From Flexeril] Adverse Reaction (Mild, Verified 03/30/17 08 :30) Headache desipramine Adverse Reaction (Mild, Verified 03/30/17 08:30) Headache estradiol [From Vagifem] Adverse Reaction (Mild, Verified 03/30/17 08:30) Itching estrogens, conjugated [From Prempro] Adverse Reaction (Mild, Verified 03/30/17 08:30) Itching indomethacin Adverse Reaction (Mild, Verified 03/30/17 08:30) Headache levofloxacin [From Levaquin] Adverse Reaction (Mild, Verified 03/30/17 08:30) RASH medroxyprogesterone acetate [From Prempro] Adverse Reaction (Mild, Verified 01/06 08:30) Itching niacin Adverse Reaction (Mild, Verified 03/30/17 08:30) RASH topiramate [From Topamax] Adverse Reaction (Mild, Verified 03/30/17 08:30) Headache triazolam [From Halcion] Adverse Reaction (Mild, Verified 03/30/17 08:30) Itching Home Medications: HOME MEDICATIONS Aspirin [Aspirin Enteric Coated] 81 mg PO DAILY 01/06/13 [Last Taken Unknown] LORazepam [Ativan] 1 mg PO TID PRN 01/06/13 [Last Taken Unknown] PARoxetine HCL [Paxil] 40 mg PO HS 01/06/13 [Last Taken Unknown] Bupropion HCl [Wellbutrin] 75 mg PO DAILY 11/26/14 [Last Taken Unknown] Pantoprazole Sodium 40 mg PO BID 12/01/14 [Last Taken Unknown] Cholecalciferol (Vitamin D3) [Vitamin D3] 10,000 unit PO DAILY 11/18/15 [Last Taken Unknown] Simvastatin [Zocor] 10 mg PO HS 01/27/16 [Last Taken Unknown] L.acidoph,Paracasei, B.lactis [Probiotic] 1 each PO DAILY 04/25/16 [Last Taken Unknown] Levothyroxine Sodium [Tirosint] 50 mcg PO DAILY 11/01/16 [Last Taken Unknown] Alpha Lipoic Acid 600 mg PO DAILY 12/27/16 [Last Taken Unknown] Cyanocobalamin [Vitamin B-12] 1,000 mcg PO DAILY 12/27/16 [Last Taken Unknown] Zolpidem Tartrate [Ambien] 10 mg PO HS 12/27/16 [Last Taken Unknown] Albuterol Sulfate [Albuterol Sulfate 2.5 MG/0.5ML] 1 vial IH TID 02/17/17 [Last Taken Unknown] rOPINIRole HCL [Requip] 0.25 mg PO HS 02/17/17 [Last Taken Unknown] Rivaroxaban [Xarelto] 20 mg PO DAILY #30 tablet 02/18/17 [Last Taken Unknown] Flecainide Acetate 50 mg PO BID 03/30/17 [Last Taken Unknown] Metoprolol Succinate [Toprol Xl] 25 mg PO DAILY 03/30/17 [Last Taken Unknown] Narrative: Patient presents to the ED for racing heart and chest tightness. 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 This is exactly like what she has had in the past with a fib RVR. On Xarelto. Has had two ablations in the past. No other recent illnesses. No acute SOB> No fever. Last had this in December. Has not seen anyone else for this event. Has been taking her medication s as directed. Timing: constant Severity/Quality: moderate Location: other - chest tightness and heart racing. Chest Pain Radiation: no radiation Activities at Onset: none Modifying Factors - Improves: Present: nothing Modifying Factors - Worsens: Present: nothing Associated Symptoms: Absent: fever/chills, vomiting, abdominal pain, weakness Prior Treatment: Denies: recently seen Review of Systems - Review of Systems Constitutional: Absent: fever Respiratory: Absent: shortness of breath Cardiology: Present: palpitations Gastrointestinal/Abdominal: Absent: abdominal pain Genitourinary: Absent: dysuria Skin: Absent: rash Neurological: Absent: weakness All Other Systems: All systems neg except as marked - Patient's Past Medical History Patient History - Medical: Anxiety, Depression, Fibromyalgia, GERD, Hypothyroidism, Migraines, Rheumatoid Arthritis Patient History - Cardiac/Respiratory: Atrial Fibrillation, COPD, Hyperlipidemia , Sleep Apnea Patient History - Cancer: No Hx of Cancer Patient History - Surgical Procedures: Appendectomy, , Hysterectomy, Tubal Ligation, Other Patient History - Other: None LMP (females 10-50): post men - Family History Father Family History - Medical: , Diabetes Type 2 Family History - Cardiac/Respiratory: Other Family History - Cancer: No pertinent family hx Mother Family History - Medical: , No pertinent hx Family History - Cardiac/Respiratory: No pertinent hx, Hypertension Family History - Cancer: History Unknown - Social History Living Situations: home Abuse History: No History of abuse Psych History: Hx of Anxiety, Hx of Depression, Current tx/ever been on anti- depressants or anti-anxiety meds Smoking Status: Never smoker Alcohol Use: none Drug Use: none - Immunizations Immunizations Up to Date: Yes Hx Pneumococcal Vaccination: Yes History of Influenza Vaccine: Yes Physical Exam - Physical Exam General Appearance: Present: alert, no apparent distress Head Exam: Present: normal inspection, no evidence of injury Eye Exam: Normal inspection: bilateral, PERRL: bilateral Ears, Nose, Throat: Present: normal ENT inspection Neck: Present: normal inspection Respiratory: Present: no respiratory distress, normal breath sounds, no accessory muscle use, lungs clear Cardiovascular/Chest: Present: normal peripheral pulses, tachycardia, irregularly irregular Gastrointestinal/Abdominal: Present: normal bowel sounds, nontender, nondistended, soft Back Exam: Present: normal range of motion Extremity Exam: Present: normal inspection Neurological Exam: Present: alert, normal mood/affect, no motor/sensory deficits Skin Exam: Present: normal color, warm/dry ED Progress - Results and Orders Patient's Lab Results:: I have reviewed the patient's lab results. - Vital Signs Patient's Vital Signs:: I have reviewed the patient's vital signs. Vital Signs: Vital Signs 03/30/17 03/30/17 03/30/17 08:24 08:40 08:50 Temperature 36.9 C Pulse Rate 147 H 148 H 154 H Respiratory 20 19 Rate Blood Pressure 126/68 120/76 O2 Sat by Pulse 95 95 Oximetry - EKG EKG read: Interp. by me EKG Comments: A fib RVR. Diffuse non-specific ST/T wave changes, no clear STEMI. - X-Ray X-Ray #1 X-Ray: chest Interpretation: Interp. by me X-ray Comments: No real-time radiology readings. Mild pulmonary vascular congestion - Progress/Reassessment Chief Complaint: Chest Pain Progress Note-Subjective: 03/30/17 09:57 patient had improved rate control with IV cardizem. D/W Dr Meza, will admit for tele and prn rate control. Pt agreeable. Departure Clinical Impression: Atrial fibrillation with RVR - Departure Disposition: [facility] Condition: Stable Referrals: Yamila Simmons, TAMI [Primary Care Provider] -
[2017-03-30 09:12] LABS: Albumin * 3.3 gm/dl (3.4-5.0); Anion Gap 13.4 mmol/L (6.8-13.8); BUN/Creatinine Ratio 15.8 (9.0-21.6); Bilirubin, Total 0.5 mg/dL (0.0-1.1); Ca. Corrected For Albumin 9.2 mg/dL (8.4-10.2); Carbon Dioxide 24.5 mmol/L (24-32.6); Potassium 3.9 mmol/L (3.4-4.6); TSH * 0.069 uIU/mL (0.358-3.74); Total Protein 7.5 gm/dL (6.2-8.2)
--- NOTE | 2017-03-30 11:40 | HP ---
Chief Complaint - Chief Complaint Date of Service: 03/30/17 Time of Service: 10:59 Chief Complaint: palpitations History of Present Illness: Lianne Houston, is a 71-year-old white female, patient of Kathya here today, with previous medical history of atrial fibrillation status post ablation 2, hypertension, hyperlipidemia, hypothyroidism, who was admitted on 03/30/2017 because of palpitations. A few hours prior to admission patient was her usual self and then suddenly she felt her heart racing. She then had some chest tightness/pressure associated with it and so she went to our emergency room. in the emergency room she was found to be in atrial fibrillation with rapid ventricular response in the 160. She was given an IV bolus of Cardizem 20 mg and her heart rate went down into the low 100s . She was admitted for further treatment. Her cardiology is Dr. Kelly and she just started her on flecainide 2 weeks ago. She is also on metoprolol that was recently increased from her last admission for A. fib. And she is on Xarelto for anticoagulation. Her EKG also showed some nonspecific ST-T wave T-wave changes likely rate related. - Patient's Past Medical History Patient History - Medical: Anxiety, Depression, Fibromyalgia, GERD, Hypothyroidism, Migraines, Rheumatoid Arthritis Patient History - Cardiac/Respiratory: Atrial Fibrillation, COPD, Hyperlipidemia , Sleep Apnea Patient History - Cancer: No Hx of Cancer Patient History - Surgical Procedures: Appendectomy, , Hysterectomy, Tubal Ligation, Other Patient History - Other: None LMP (females 10-50): post men - Family History Father Family History - Medical: Diabetes Type 2 Family History - Cardiac/Respiratory: Myocardial Infarction Family History - Cancer: No pertinent family hx Mother Family History - Medical: , No pertinent hx Family History - Cardiac/Respiratory: Hypertension Family History - Cancer: Metatastic - Social History Living Situations: spouse Abuse History: No History of abuse Psych History: Hx of Anxiety, Hx of Depression, Current tx/ever been on anti- depressants or anti-anxiety meds Smoking Status: Never smoker Alcohol Use: none Drug Use: none - Immunizations Immunizations Up to Date: Yes Hx Pneumococcal Vaccination: Yes History of Influenza Vaccine: Yes Immunizations: IMMUNIZATION HX Immunizations Up to Date Yes History of Influenza Vaccine Yes Hx Pneumococcal Vaccination Yes Allergies/Adverse Reactions: Allergies Allergy/AdvReac Type Severity Reaction Status Date / Time desvenlafaxine succinate Allergy Mild Headache Verified 03/30/17 08:30 [From Pristiq] morphine Allergy Mild hypotension Verified 03/30/17 08:30 metronidazole [From Flagyl] Allergy Unknown Verified 03/30/17 08:30 citalopram hydrobromide AdvReac Mild Headache Verified 03/30/17 08:30 [From Celexa] cyclobenzaprine HCl AdvReac Mild Headache Verified 03/30/17 08:30 [From Flexeril] desipramine AdvReac Mild Headache Verified 03/30/17 08:30 estradiol [From Vagifem] AdvReac Mild Itching Verified 03/30/17 08:30 estrogens, conjugated AdvReac Mild Itching Verified 03/30/17 08:30 [From Prempro] indomethacin AdvReac Mild Headache Verified 03/30/17 08:30 levofloxacin [From Levaquin] AdvReac Mild RASH Verified 03/30/17 08:30 medroxyprogesterone acetate AdvReac Mild Itching Verified 03/30/17 08:30 [From Prempro] niacin AdvReac Mild RASH Verified 03/30/17 08:30 topiramate [From Topamax] AdvReac Mild Headache Verified 03/30/17 08:30 triazolam [From Halcion] AdvReac Mild Itching Verified 03/30/17 08:30 Home Medications: HOME MEDICATIONS LORazepam [Ativan] 1 mg PO TID PRN 01/06/13 [Last Taken 03/29/17 21:30] PARoxetine HCL [Paxil] 40 mg PO DAILY 01/06/13 [Last Taken 03/29/17 14:30] Bupropion HCl [Wellbutrin] 75 mg PO DAILY 11/26/14 [Last Taken 03/29/17 07:30] Pantoprazole Sodium 40 mg PO BID 12/01/14 [Last Taken 03/30/17 06:30] Cholecalciferol (Vitamin D3) [Vitamin D3] 10,000 unit PO DAILY 11/18/15 [Last Taken 03/29/17 07:30] Simvastatin [Zocor] 10 mg PO HS 01/27/16 [Last Taken 03/29/17 18:00] L.acidoph,Paracasei, B.lactis [Probiotic] 1 each PO DAILY 04/25/16 [Last Taken 03/29/17 07:30] Levothyroxine Sodium [Tirosint] 50 mcg PO DAILY 11/01/16 [Last Taken 03/30/17 06 :30] Cyanocobalamin [Vitamin B-12] 1,000 mcg PO DAILY 12/27/16 [Last Taken 03/29/17 07:30] Zolpidem Tartrate [Ambien] 10 mg PO HS 12/27/16 [Last Taken 03/29/17 21:30] Albuterol Sulfate [Albuterol Sulfate 2.5 MG/0.5ML] 1 vial IH TID 02/17/17 [Last Taken 03/28/17 07:30] rOPINIRole HCL [Requip] 0.25 mg PO HS 02/17/17 [Last Taken 03/29/17 19:45] Rivaroxaban [Xarelto] 20 mg PO DAILY #30 tablet 02/18/17 [Last Taken 03/29/17 08 :00] Flecainide Acetate 50 mg PO BID 03/30/17 [Last Taken 03/29/17 18:00] Metoprolol Succinate [Toprol Xl] 25 mg PO DAILY 03/30/17 [Last Taken 03/29/17 18 :00] Exam - Exam Vital Signs: Vital Signs - Last Taken Temp 36.6 C 03/30/17 10:11 Pulse 98 03/30/17 10:11 Resp 20 03/30/17 10:11 BP 117/69 03/30/17 10:11 Pulse Ox 91 03/30/17 10:11 Constitutional: Present: Alert, Oriented x3, Cooperative ENT Exam: Present: hearing grossly normal Eye Exam: bilateral eye: normal inspection, PERRL, EOMI Neck: Present: supple Cardiovascular/Chest: Present: no murmur, irregularly irregular Abdomen: Present: Normal bowel sounds, soft, nontender, nondistended Extremity: Present: no pedal edema, no calf tenderness Diagnostic Studies: Laboratory Results WBC 5.6 K/mm3 (4.0-10.5) 03/30/17 08:43 RBC 4.38 M/mm3 (4.2-5.4) 03/30/17 08:43 Hgb 13.2 gm/dL (12.5-16.0) 03/30/17 08:43 Hct 39.4 % (37.0-47.0) 03/30/17 08:43 MCV 90.0 fl (78-100) 03/30/17 08:43 MCH 30.1 pg (27-31) 03/30/17 08:43 MCHC 33.5 g/dl (32-36) 03/30/17 08:43 RDW 13.8 % (11.5-14.0) 03/30/17 08:43 Plt Count 169 K/mm3 (150-450) 03/30/17 08:43 MPV 10.3 fl (6.0-9.5) H 03/30/17 08:43 Immature Gran % (Auto) 0.40 % (0.001-0.429) 03/30/17 08:43 Immature Gran # (Auto) 0.02 K/mm3 (0.000-0.0310) 03/30/17 08:43 Neutrophils % 45.7 % (42-75.0) 03/30/17 08:43 Lymphocytes % 39.1 % (20-51) 03/30/17 08:43 Monocytes % 11.3 % (0.0-9) H 03/30/17 08:43 Eosinophils % 3.0 % (0.0-3.0) 03/30/17 08:43 Basophils % 0.5 % (0.0-1.0) 03/30/17 08:43 Nucleated RBC % 0.0 k/mm3 (0-1) 03/30/17 08:43 Neutrophils # 2.6 K/mm3 (1.3-6.0) 03/30/17 08:43 Lymphocytes # 2.2 k/mm3 (1.5-3.5) 03/30/17 08:43 Monocytes # 0.6 k/mm3 (0.0-1.0) 03/30/17 08:43 Eosinophils # 0.2 k/mm3 (0.0-0.7) 03/30/17 08:43 Absolute Basophils 0.0 k/mm3 (0.0-0.1) 03/30/17 08:43 PT 10.0 Seconds (9.0-11.0) 03/30/17 08:43 INR (Anticoag Therapy) 1.00 INR (0.90-1.10) 03/30/17 08:43 Sodium 140 mmol/L (132-142) 03/30/17 08:43 Plasma Sodium 140 mmol/L (130-142) 03/30/17 08:43 Potassium 3.9 mmol/L (3.4-4.6) 03/30/17 08:43 Chloride 106 mmol/L (97-106) 03/30/17 08:43 Carbon Dioxide 24.5 mmol/L (24-32.6) 03/30/17 08:43 Anion Gap 13.4 mmol/L (6.8-13.8) 03/30/17 08:43 BUN 15 mg/dL (3-23) 03/30/17 08:43 Creatinine 0.95 mg/dL (0.4-1.4) 03/30/17 08:43 Est GFR (Non-Af Amer) 62 mL/min (60-130) 03/30/17 08:43 BUN/Creatinine Ratio 15.8 (9.0-21.6) 03/30/17 08:43 Random Glucose 112 mg/dL (70-110) H 03/30/17 08:43 Calcium 9.0 mg/dL (7.9-10.9) 03/30/17 08:43 Calcium Adj for Albumin 9.2 mg/dL (8.4-10.2) 03/30/17 08:43 Total Bilirubin 0.5 mg/dL (0.0-1.1) 03/30/17 08:43 AST 35 U/L (0-48) 03/30/17 08:43 ALT 35 U/L (19-67) 03/30/17 08:43 Alkaline Phosphatase 134 U/L (50-170) 03/30/17 08:43 Troponin I 0.017 ng/ml (0.00-0.10) 03/30/17 08:43 Total Protein 7.5 gm/dL (6.2-8.2) 03/30/17 08:43 Albumin 3.3 gm/dl (3.4-5.0) L 03/30/17 08:43 TSH 0.069 uIU/mL (0.358-3.74) L 03/30/17 08:43 Assessment/Plan - Assessment/Plan (1) Atrial fibrillation with RVR Assessment: She is in the 110-115. Will resume her home meds especially her antianxiety pills. she is on Liothyronine and levothyroxine by her PCP and her TSH since 2016 has been low and could be causing her to go in and out of AFib. I told her we will hold it and maybe restart her on a a levothyroxine only as it is very hard to control her TSH with liothyronine on board. Problem: Acute (2) Anxiety and depression Problem: Chronic (3) COPD (chronic obstructive pulmonary disease) Problem: Chronic
[2017-03-30] MEDS: LORazepam 1 MG TABLET PO PRN ×2 (11:47→17:24)
[2017-03-30] MEDS ORDERED: METOPROLOL SUCCINATE 25 MG TABLET.SA PO SCH (14:11)
[2017-03-30] MEDS ORDERED: METOPROLOL SUCCINATE 25 MG TABLET.SA PO ONE (14:30)
[2017-03-30] MEDS: ALBUTEROL SULFATE 2.5 MG/0.5 ML VIAL.NEB IH SCH ×2 (14:39→17:24)
[2017-03-30] MEDS: FLECAINIDE ACETATE 100 MG TABLET PO SCH (20:52)
[2017-03-30] MEDS: PANTOPRAZOLE SODIUM 40 MG TABLET.EC PO SCH (20:55)
[2017-03-30] MEDS ORDERED: rOPINIRole HCL 0.5 MG TABLET PO SCH (21:00)
[2017-03-30] MEDS ORDERED: SIMVASTATIN 10 MG TABLET PO SCH (21:00)
[2017-03-30] MEDS ORDERED: ZOLPIDEM TARTRATE 5 MG TABLET PO SCH (21:00)
[2017-03-30] MEDS: METOPROLOL SUCCINATE 50 MG TABLET.SA PO SCH (22:23)
[2017-03-31] MEDS: ALBUTEROL SULFATE 2.5 MG/0.5 ML VIAL.NEB IH SCH (06:03)
[2017-03-31] MEDS: PANTOPRAZOLE SODIUM 40 MG TABLET.EC PO SCH (07:02)
[2017-03-31 07:10] VITALS: BP 118/59
[2017-03-31] MEDS: FLECAINIDE ACETATE 100 MG TABLET PO SCH (08:25)
[2017-03-31] MEDS: METOPROLOL SUCCINATE 50 MG TABLET.SA PO SCH (08:26)
[2017-03-31] MEDS ORDERED: CHOLECALCIFEROL 5,000 UNIT TABLET PO SCH (09:00)
[2017-03-31] MEDS ORDERED: PARoxetine HCL 20 MG TABLET PO SCH (09:00)
[2017-03-31] MEDS ORDERED: METOPROLOL SUCCINATE 25 MG TABLET.SA PO SCH (09:00)
[2017-03-31] MEDS ORDERED: LACTOBACILLUS ACIDOPHILUS 100 CAP BTL PO SCH (09:00)
[2017-03-31] MEDS ORDERED: RIVAROXABAN 20 MG TABLET PO SCH (09:00)
[2017-03-31] MEDS ORDERED: METOPROLOL SUCCINATE 50 MG TABLET.SA PO SCH (09:00)
[2017-03-31] MEDS ORDERED: CYANOCOBALAMIN 1,000 MCG TABLET PO SCH (09:00)
--- NOTE | 2017-03-31 09:40 | DS ---
(1) Atrial fibrillation with RVR Diagnosis(s): converted to NSR spontaneously. Problem: Resolved (2) Anxiety and depression Problem: Chronic (3) COPD (chronic obstructive pulmonary disease) Problem: Chronic (4) Hypothyroidism Problem: Chronic (5) Hypertension Problem: Acute Description of Stay: Lianne Houston, is a 71-year-old white female, patient of Kathya here today, with previous medical history of atrial fibrillation status post ablation 2, hypertension, hyperlipidemia, hypothyroidism, who was admitted on 03/30/2017 because of palpitations. A few hours prior to admission patient was her usual self and then suddenly she felt her heart racing. She then had some chest tightness/pressure associated with it and so she went to our emergency room. in the emergency room she was found to be in atrial fibrillation with rapid ventricular response in the 160. She was given an IV bolus of Cardizem 20 mg and her heart rate went down into the low 100s . She was admitted for further treatment. Her cardiology is Dr. Kelly and she just started her on flecainide 2 weeks ago. She is also on metoprolol succinate (100 mg which she takes as 50 mg BID) that was recently increased from her last admission for A. fib which was fairly recent. She is on Xarelto for anticoagulation. Her EKG also showed some nonspecific ST-T wave T-wave changes likely rate related. She ruled out for AMI. She got IV boluses of cardizem. She converted to NSR overnight spontaneously. Her TSH has been on the low side since July of this year. We held her levothyroxine and liothyronine. She is stable to be discarged today. She can follow up with me in 1 week with BP/HR diary. I told her that I woill not change her medications for now except stop her T3 supplementation ( liothyronine) and discharge her on a lower dose of Levothyroxine at 25 mcg POQD. Will recheck her TSH, FT4, FT3 in 4 weeks.. Procedures Performed: none Discharge Disposition: Home self care Disposition: Home self-care Condition: Stable Discharge Activity: Activity as tolerated Discharge Diet: Low salt Referrals: Yamila Simmons, VOICE COACH [Primary Care Provider] - Additional Patient Instructions (free text): Follow up with me in 1 week with BP/HR diary. Prescriptions (Any new or edited meds): Levothyroxine Sodium [Tirosint] 25 mcg PO DAILY #30 capsule Complete Home Medications List: Complete Home Medication List: LORazepam [Ativan] 1 mg PO TID PRN 01/06/13 PARoxetine HCL [Paxil] 40 mg PO DAILY 01/06/13 Pantoprazole Sodium 40 mg PO BID 12/01/14 Cholecalciferol (Vitamin D3) [Vitamin D3] 10,000 unit PO DAILY 11/18/15 Simvastatin [Zocor] 10 mg PO HS 01/27/16 L.acidoph,Paracasei, B.lactis [Probiotic] 1 each PO DAILY 04/25/16 Cyanocobalamin [Vitamin B-12] 1,000 mcg PO DAILY 12/27/16 Zolpidem Tartrate [Ambien] 10 mg PO HS 12/27/16 Albuterol Sulfate [Albuterol Sulfate 2.5 MG/0.5ML] 1 vial IH TID 02/17/17 rOPINIRole HCL [Requip] 0.25 mg PO HS 02/17/17 Rivaroxaban [Xarelto] 20 mg PO DAILY #30 tablet 02/18/17 Flecainide Acetate 50 mg PO BID 03/30/17 Metoprolol Succinate [Toprol Xl] 50 mg PO BID 03/30/17 Flecainide Acetate [Tambocor] 50 mg PO BID tablet 03/31/17 Levothyroxine Sodium [Tirosint] 25 mcg PO DAILY #30 capsule 03/31/17
[2017-03-31] MEDS ORDERED: ALBUTEROL SULFATE 2.5 MG/0.5 ML VIAL.NEB IH SCH (13:00)
== END 2017-03-31 11:15 | disposition home or self-care (01) ==
LOC: ER 08:20 → MS 09:57
PROVIDERS: ADMIT Internal Medicine; ATTEND Internal Medicine
DX: I48.2 Chronic atrial fibrillation (principal); F41.8 Other specified anxiety disorders; J44.9 Chronic obstructive pulmonary disease, unspecified; I10 Essential (primary) hypertension; E03.9 Hypothyroidism, unspecified; E78.5 Hyperlipidemia, unspecified; K21.9 Gastro-esophageal reflux disease without esophagitis
CPT/HCPCS: 36415; 71010; 80053; 84443; 84484; 85025; 85610; 93005; 94640; 94660; 96374; 96376; 99285; G0378

== ENCOUNTER 2018-01-18 12:27 | Inpatient (IN) | payer BC, MEDICARE ==
--- NOTE | 2018-01-18 12:38 | ERNOTE ---
Chest Pain/Cardiac HPI Date of Service: 01/18/18 Chief Complaint: Palpitations Time Seen by Provider: 01/18/18 12:33 Source: patient, family Exam Limitations: no limitations Immunizations: IMMUNIZATION HX Immunizations Up to Date Yes History of Influenza Vaccine Yes Hx Pneumococcal Vaccination Yes Allergies/Adverse Reactions: Allergies desvenlafaxine succinate [From Pristiq] Allergy (Mild, Verified 01/18/18 12:37) Headache morphine Allergy (Mild, Verified 01/18/18 12:37) hypotension metronidazole [From Flagyl] Allergy (Unknown, Verified 01/18/18 12:37) citalopram hydrobromide [From Celexa] Adverse Reaction (Mild, Verified 01/18/18 12:37) Headache cyclobenzaprine HCl [From Flexeril] Adverse Reaction (Mild, Verified 01/18/18 12 :37) Headache desipramine Adverse Reaction (Mild, Verified 01/18/18 12:37) Headache estradiol [From Vagifem] Adverse Reaction (Mild, Verified 01/18/18 12:37) Itching estrogens, conjugated [From Prempro] Adverse Reaction (Mild, Verified 01/18/18 12:37) Itching indomethacin Adverse Reaction (Mild, Verified 01/18/18 12:37) Headache levofloxacin [From Levaquin] Adverse Reaction (Mild, Verified 01/18/18 12:37) RASH medroxyprogesterone acetate [From Prempro] Adverse Reaction (Mild, Verified 12:37) Itching niacin Adverse Reaction (Mild, Verified 01/18/18 12:37) RASH topiramate [From Topamax] Adverse Reaction (Mild, Verified 01/18/18 12:37) Headache triazolam [From Halcion] Adverse Reaction (Mild, Verified 01/18/18 12:37) Itching Home Medications: HOME MEDICATIONS Albuterol Sulfate/Ipratropium [Duoneb 2.5-0.5MG/3ML Soln] 3 ml IH PRN PRN [Last Taken Unknown] Cholecalciferol (Vitamin D3) [Vitamin D3] 10,000 unit PO DAILY 01/18/18 [Last Taken 01/18/18 08:00] Cyanocobalamin (Vitamin B-12) [Vitamin B12] 3,000 mcg PO DAILY 01/18/18 [Last Taken 01/18/18 08:00] Dexlansoprazole [Dexilant] 30 mg PO DAILY 01/18/18 [Last Taken 01/18/18 08:00] Flecainide Acetate 50 mg PO BID 01/18/18 [Last Taken 01/18/18 08:00] L.acidoph,Paracasei, B.lactis [Probiotic] 1 each PO DAILY 01/18/18 [Last Taken 01/18/18 08:00] LORazepam [Ativan] 1 mg PO PRN PRN 01/18/18 [Last Taken Unknown] Levothyroxine Sodium [Synthroid] 75 mcg PO DAILY 01/18/18 [Last Taken 01/18/18 08:00] Losartan Potassium [Cozaar] 50 mg PO DAILY 01/18/18 [Last Taken 01/18/18 08:00] Metoprolol Tartrate [Lopressor] 50 mg PO BID 01/18/18 [Last Taken 01/18/18 08:00 ] Mv-Mn/Folic Acid/Calcium/Vit K [Women's 50 Plus Daily Formula] 1 each PO DAILY 01/18/18 [Last Taken 01/18/18 08:00] PARoxetine HCL [Paxil] 40 mg PO DAILY 01/18/18 [Last Taken 01/18/18 08:00] Rivaroxaban [Xarelto] 20 mg PO BID 01/18/18 [Last Taken 01/18/18 08:00] Simvastatin [Zocor] 10 mg PO DAILY 01/18/18 [Last Taken 01/18/18 08:00] Zolpidem Tartrate [Ambien] 5 mg PO HS PRN 01/18/18 [Last Taken 01/17/18 21:00] buPROPion HCL [Wellbutrin] 100 mg PO DAILY 01/18/18 [Last Taken 01/18/18 08:00] rOPINIRole HCL [Requip] 0.25 mg PO HS 01/18/18 [Last Taken 01/17/18 21:00] Narrative: 72-year-old female presents to the emergency room for chest palpitations. Patient states she feels like she is in atrial flutter. Patient states she has a history of atrial fib and this is familiar feeling that she had last time. Patient states that she has been under some stress over the last few days. 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 Nitro Today/Relief: no nitro taken today Aspirin Treatment Today: provided at home Associated Symptoms: Present: palpitations Prior Chest Pain/Cardiac Workup: Reports: prior chest pain Prior Treatment: Reports: treated by physician Review of Systems - Review of Systems Constitutional: Present: See HPI EYE: Present: no symptoms reported ENT: Present: no symptoms reported Respiratory: Present: no symptoms reported, See HPI Cardiology: Present: See HPI, palpitations Gastrointestinal/Abdominal: Present: no symptoms reported Genitourinary: Present: no symptoms reported Musculoskeletal: Present: no symptoms reported Skin: Present: no symptoms reported Neurological: Present: no symptoms reported Endocrine: Present: no symptoms reported Hematologic/Lymphatic: Present: no symptoms reported Psych: Present: See HPI, anxiety All Other Systems: All systems neg except as marked Medical History (Last Reviewed 01/18/18 @ 16:14 by Shannon Tyler RN) GERD (gastroesophageal reflux disease) Insomnia Anxiety Atrial fibrillation COPD (chronic obstructive pulmonary disease) Depression Hypertension Hypothyroidism Surgical History: Surgical History (Last Reviewed 01/18/18 @ 16:14 by Shannon Tyler RN) History of cardiac radiofrequency ablation Onset Date: ~2010 History of section History of hysterectomy Family History: Family History (Last Reviewed 01/18/18 @ 16:14 by Shannon Tyler RN) Father Myocardial infarction Father Diabetes Social History: Preferred Language Maori Do you have any taoism or No cultural preference? Smoking Status Former smoker Abuse History No History of abuse Psych History Hx of Anxiety,Hx of Depression,Currently on Meds Alcohol Use none Drug Use none Physical Exam - Physical Exam General Appearance: Present: wd/wn, alert Head Exam: Present: normal inspection, no evidence of injury Eye Exam: Normal inspection: bilateral, PERRL: bilateral Ears, Nose, Throat: Present: normal ENT inspection Neck: Present: normal inspection, nontender Respiratory: Present: no respiratory distress, normal breath sounds, no accessory muscle use, chest nontender, lungs clear Cardiovascular/Chest: Present: irregularly irregular Gastrointestinal/Abdominal: Present: normal bowel sounds, nontender, nondistended, soft, no organomegaly Back Exam: Present: normal inspection, normal range of motion, no CVA tenderness , no vertebral tenderness Extremity Exam: Present: normal inspection, non-tender, normal range of motion, no edema Neurological Exam: Present: alert, oriented, normal mood/affect, no motor/ sensory deficits Skin Exam: Present: normal color, warm/dry Lymphatic Exam: Present: no adenopathy ED Progress - Vital Signs Vital Signs: Vital Signs 01/18/18 12:30 Temperature 37.1 C Pulse Rate 112 H Respiratory Rate 18 Blood Pressure 148/109 H O2 Sat by Pulse Oximetry 97 - EKG EKG: atrial fibrillation EKG read: Reviewed by me - Progress/Reassessment Chief Complaint: Palpitations Departure Clinical Impression: Atrial fibrillation with RVR - Departure Disposition: Still a patient Condition: Stable
[2018-01-18 12:57] LABS: Hematocrit 47.3 % (37.0-47.0); Hemoglobin 15.7 gm/dL (12.5-16.0); Mean Cell Volume 91.3 fl (78-100); Mean Corpuscular Hemoglobin 30.3 pg (27-31); Mean Corpuscular Hgb Conc 33.2 g/dl (32-36); Mean Platelet Volume 10.7 fl (8-12.5); Neutrophil # 3.7 K/mm3 (1.3-6.0); Neutrophil % 48.7 % (42-75.0); Platelet Count 211 K/mm3 (150-450); Red Blood Count 5.18 M/mm3 (4.2-5.4); Red Cell Distribution Width 13.7 % (11.5-14.0); White Blood Count 7.6 K/mm3 (4.0-10.5)
[2018-01-18 13:16] LABS: Troponin I Less than 0.017 ng/mL (0.00-0.10)
[2018-01-18 13:19] LABS: Urine Appearance Clear (CLEAR); Urine Bilirubin Negative (NEGATIVE); Urine Blood 5 /ul (NEGATIVE); Urine Color Yellow; Urine Ketone Negative (NEGATIVE); Urine Nitrite Negative (NEGATIVE); Urine Protein Negative (NEGATIVE); Urine Urobilinogen Normal (NORMAL)
[2018-01-18 13:20] LABS: ALT 26 U/L (19-67); AST 27 U/L (0-48); Albumin * 4.1 gm/dl (3.4-5.0); Alkaline Phosphatase * 156 U/L (50-170); BUN/Creatinine Ratio 14.9 (9.0-21.6); Bilirubin, Total 0.6 mg/dL (0.0-1.1); Blood Urea Nitrogen 15 mg/dL (3-23); Ca. Corrected For Albumin 9.3 mg/dL (8.4-10.2); Calcium * 9.7 mg/dL (7.9-10.9); Carbon Dioxide 30.7 mmol/L (24-32.6); Chloride 102 mmol/L (97-106); Glucose * 90 mg/dL (70-110); Potassium 3.7 mmol/L (3.4-4.6); Sodium 138 mmol/L (132-142); TSH * 0.245 uIU/mL (0.358-3.74); Total Protein 8.9 gm/dL (6.2-8.2); Urine Bacteria None Seen; Urine RBC 0-5 /hpf (0-5); Urine WBC None Seen /hpf (0-5)
[2018-01-18] MEDS ORDERED: LORazepam 1 MG TABLET ONE (13:29)
[2018-01-18] MEDS ORDERED: LORazepam 1 MG TABLET PO ONE (13:29)
[2018-01-18] MEDS ORDERED: METOPROLOL TARTRATE 1 MG/ML AMPUL IV ONE ×6 (13:54→14:22)
[2018-01-18] MEDS ORDERED: DILTIAZEM HCL 5 MG/ML VIAL IV ONE ×3 (14:44→15:30)
[2018-01-18] MEDS ORDERED: DILTIAZEM HCL 125 MG in DEXTROSE 5 % IN WATER 100 ML IV PRN ×4 (14:44→17:00)
[2018-01-18] MEDS ORDERED: ALBUTEROL SULFATE/IPRATROPIUM 3 ML NEBU IH PRN (16:52)
--- NOTE | 2018-01-18 16:52 | HP ---
Chief Complaint - Chief Complaint Date of Service: 01/18/18 Time of Service: 16:30 Chief Complaint: SOB, irregular heart rhythm, chest pressure History of Present Illness: Onset of symptoms today. Has been in afib with rvr twice before and converts with cardizem drip. She had some midsternal chest pressure radiating up into the throat earlier but that is 90% gone. She has on other issues today. Medical History (Last Reviewed 01/18/18 @ 16:14 by Shannon Tyler RN) GERD (gastroesophageal reflux disease) Insomnia Anxiety Atrial fibrillation COPD (chronic obstructive pulmonary disease) Depression Hypertension Hypothyroidism Surgical History: Surgical History (Last Reviewed 01/18/18 @ 16:14 by Shannon Tyler RN) History of cardiac radiofrequency ablation Onset Date: ~2010 History of section History of hysterectomy Family History: Family History (Last Reviewed 01/18/18 @ 16:14 by Shannon Tyler RN) Father Myocardial infarction Father Diabetes Social History: Patient Lives/Resources With Spouse Utilized Occupation retired Preferred Language Palestinian Do you have any tenriism or Yes cultural preference? Smoking Status Never smoker Have you smoked in the past 12 No months Do you dip or chew tobacco No Abuse History No History of abuse Psych History Hx of Anxiety,Hx of Depression,Currently on Meds Alcohol Use none Drug Use none Review Of Systems (GEN) - Review of Systems Generalized/Overall Review: Present: Weakness, Malaise EENTM: Present: No Symptoms Reported Respiratory: Present: Shortness of Breath Cardiac: Present: Chest Pain, Palpitations Abdominal: Present: No Symptoms Reported Genitourinary: Present: No Symptoms Reported Musculoskeletal: Present: No Symptoms Reported Neurological: Present: No Symptoms Reported Skin: Present: No Symptoms Reported Endocrine: Present: No Symptoms Reported Immunizations: IMMUNIZATION HX Immunizations Up to Date Yes History of Influenza Vaccine Yes Hx Pneumococcal Vaccination Yes Allergies/Adverse Reactions: Allergies Allergy/AdvReac Type Severity Reaction Status Date / Time desvenlafaxine succinate Allergy Mild Headache Verified 01/18/18 12:37 [From Pristiq] morphine Allergy Mild hypotension Verified 01/18/18 12:37 metronidazole [From Flagyl] Allergy Unknown Verified 01/18/18 12:37 citalopram hydrobromide AdvReac Mild Headache Verified 01/18/18 12:37 [From Celexa] cyclobenzaprine HCl AdvReac Mild Headache Verified 01/18/18 12:37 [From Flexeril] desipramine AdvReac Mild Headache Verified 01/18/18 12:37 estradiol [From Vagifem] AdvReac Mild Itching Verified 01/18/18 12:37 estrogens, conjugated AdvReac Mild Itching Verified 01/18/18 12:37 [From Prempro] indomethacin AdvReac Mild Headache Verified 01/18/18 12:37 levofloxacin [From Levaquin] AdvReac Mild RASH Verified 01/18/18 12:37 medroxyprogesterone acetate AdvReac Mild Itching Verified 01/18/18 12:37 [From Prempro] niacin AdvReac Mild RASH Verified 01/18/18 12:37 topiramate [From Topamax] AdvReac Mild Headache Verified 01/18/18 12:37 triazolam [From Halcion] AdvReac Mild Itching Verified 01/18/18 12:37 Home Medications: HOME MEDICATIONS Albuterol Sulfate/Ipratropium [Duoneb 2.5-0.5MG/3ML Soln] 3 ml IH PRN PRN [Last Taken Unknown] Cholecalciferol (Vitamin D3) [Vitamin D3] 10,000 unit PO DAILY 01/18/18 [Last Taken 01/18/18 08:00] Cyanocobalamin (Vitamin B-12) [Vitamin B12] 3,000 mcg PO DAILY 01/18/18 [Last Taken 01/18/18 08:00] Dexlansoprazole [Dexilant] 30 mg PO DAILY 01/18/18 [Last Taken 01/18/18 08:00] Flecainide Acetate 50 mg PO BID 01/18/18 [Last Taken 01/18/18 08:00] L.acidoph,Paracasei, B.lactis [Probiotic] 1 each PO DAILY 01/18/18 [Last Taken 01/18/18 08:00] LORazepam [Ativan] 1 mg PO PRN PRN 01/18/18 [Last Taken Unknown] Levothyroxine Sodium [Synthroid] 75 mcg PO DAILY 01/18/18 [Last Taken 01/18/18 08:00] Losartan Potassium [Cozaar] 50 mg PO DAILY 01/18/18 [Last Taken 01/18/18 08:00] Metoprolol Tartrate [Lopressor] 50 mg PO BID 01/18/18 [Last Taken 01/18/18 08:00 ] Mv-Mn/Folic Acid/Calcium/Vit K [Women's 50 Plus Daily Formula] 1 each PO DAILY 01/18/18 [Last Taken 01/18/18 08:00] PARoxetine HCL [Paxil] 40 mg PO DAILY 01/18/18 [Last Taken 01/18/18 08:00] Rivaroxaban [Xarelto] 20 mg PO BID 01/18/18 [Last Taken 01/18/18 08:00] Simvastatin [Zocor] 10 mg PO DAILY 01/18/18 [Last Taken 01/18/18 08:00] Zolpidem Tartrate [Ambien] 5 mg PO HS PRN 01/18/18 [Last Taken 01/17/18 21:00] buPROPion HCL [Wellbutrin] 100 mg PO DAILY 01/18/18 [Last Taken 01/18/18 08:00] rOPINIRole HCL [Requip] 0.25 mg PO HS 01/18/18 [Last Taken 01/17/18 21:00] Exam - Exam Vital Signs: Vital Signs - Last Taken Temp 36.6 C 01/18/18 15:51 Pulse 101 H 01/18/18 15:56 Resp 18 01/18/18 15:51 BP 154/63 H 01/18/18 15:56 Pulse Ox 97 01/18/18 15:51 Constitutional: Present: Alert, Oriented x3, Cooperative, Well developed, Well nourished, No distress, Mild distress ENT Exam: Present: normal ENT inspection, hearing grossly normal, pharynx normal , TMs normal Eye Exam: bilateral eye: normal inspection, PERRL, EOMI Neck: Present: non-tender, full range of motion, supple, normal inspection, trachea midline, limited range of motion Back Exam: Present: normal inspection, no CVA tenderness, no vertebral tenderness Respiratory: Present: chest non-tender, lungs clear, normal breath sounds Cardiovascular/Chest: Present: normal peripheral pulses, tachycardia, systolic murmur, irregularly irregular. Absent: regular rate, rhythm Peripheral Pulses: carotid (R): 2+, carotid (L): 2+, radial (R): 2+, radial (L) : 2+ Abdomen: Present: Normal bowel sounds, soft, nontender, nondistended, no hepatospenomegaly, no masses /Rectal: Present: Exam deferred Extremity: Present: normal range of motion, non-tender, normal inspection Skin Exam: Present: normal color, warm/dry, no cyanosis Lymphatic: Present: no adenopathy Neurologic: Present: manager talent management II-XII nml as tested, no motor/sensory deficits, alert , normal mood/affect, oriented x 3 Appearance: Present: appropriate appearance, appropriate insight, neat Eye contact: Present: cooperative, good eye contact, normal speech Thoughts: Present: normal thought pattern, no apparent hallucination Diagnostic Studies: Abnormal Lab Results 01/18/18 01/18/18 01/18/18 Range/Units 12:50 12:50 12:50 Hct 47.3 H (37.0-47.0) % Monocytes % 9.7 H (0.0-9) % Est GFR (Non-Af Amer) 58 L (60-130) mL/min Total Protein 8.9 H (6.2-8.2) gm/dL TSH 0.245 L (0.358-3.74) uIU/mL Urine Blood 5 H (NEGATIVE) /ul Laboratory Results WBC 7.6 K/mm3 (4.0-10.5) 01/18/18 12:50 RBC 5.18 M/mm3 (4.2-5.4) 01/18/18 12:50 Hgb 15.7 gm/dL (12.5-16.0) 01/18/18 12:50 Hct 47.3 % (37.0-47.0) H 01/18/18 12:50 MCV 91.3 fl (78-100) 01/18/18 12:50 MCH 30.3 pg (27-31) 01/18/18 12:50 MCHC 33.2 g/dl (32-36) 01/18/18 12:50 RDW 13.7 % (11.5-14.0) 01/18/18 12:50 Plt Count 211 K/mm3 (150-450) 01/18/18 12:50 MPV 10.7 fl (8-12.5) 01/18/18 12:50 Immature Gran % (Auto) 0.30 % (0.001-0.429) 01/18/18 12:50 Immature Gran # (Auto) 0.02 K/mm3 (0.000-0.0310) 01/18/18 12:50 Neutrophils % 48.7 % (42-75.0) 01/18/18 12:50 Lymphocytes % 38.4 % (20-51) 01/18/18 12:50 Monocytes % 9.7 % (0.0-9) H 01/18/18 12:50 Eosinophils % 2.6 % (0.0-3.0) 01/18/18 12:50 Basophils % 0.3 % (0.0-1.0) 01/18/18 12:50 Nucleated RBC % 0.0 k/mm3 (0-1) 01/18/18 12:50 Neutrophils # 3.7 K/mm3 (1.3-6.0) 01/18/18 12:50 Lymphocytes # 2.92 k/mm3 (1.5-3.5) 01/18/18 12:50 Monocytes # 0.7 k/mm3 (0.0-1.0) 01/18/18 12:50 Eosinophils # 0.2 k/mm3 (0.0-0.7) 01/18/18 12:50 Absolute Basophils 0.0 k/mm3 (0.0-0.1) 01/18/18 12:50 Sodium 138 mmol/L (132-142) 01/18/18 12:50 Plasma Sodium 138 mmol/L (130-142) 01/18/18 12:50 Potassium 3.7 mmol/L (3.4-4.6) 01/18/18 12:50 Chloride 102 mmol/L (97-106) 01/18/18 12:50 Carbon Dioxide 30.7 mmol/L (24-32.6) 01/18/18 12:50 Anion Gap 9.0 mmol/L (6.8-13.8) 01/18/18 12:50 BUN 15 mg/dL (3-23) 01/18/18 12:50 Creatinine 1.01 mg/dL (0.4-1.4) 01/18/18 12:50 Est GFR (Non-Af Amer) 58 mL/min (60-130) L 01/18/18 12:50 BUN/Creatinine Ratio 14.9 (9.0-21.6) 01/18/18 12:50 Random Glucose 90 mg/dL (70-110) 01/18/18 12:50 Calcium 9.7 mg/dL (7.9-10.9) 01/18/18 12:50 Calcium Adj for Albumin 9.3 mg/dL (8.4-10.2) 01/18/18 12:50 Total Bilirubin 0.6 mg/dL (0.0-1.1) 01/18/18 12:50 AST 27 U/L (0-48) 01/18/18 12:50 ALT 26 U/L (19-67) 01/18/18 12:50 Alkaline Phosphatase 156 U/L (50-170) 01/18/18 12:50 Troponin I Less than 0.017 ng/mL (0.00-0.10) 01/18/18 12:50 Total Protein 8.9 gm/dL (6.2-8.2) H 01/18/18 12:50 Albumin 4.1 gm/dl (3.4-5.0) 01/18/18 12:50 TSH 0.245 uIU/mL (0.358-3.74) L 01/18/18 12:50 Urine Color Yellow 01/18/18 12:50 Urine Appearance Clear (CLEAR) 01/18/18 12:50 Urine pH 7.0 pH (5.0-7.0) 01/18/18 12:50 Ur Specific [place] 1.010 SP.GR. (1.005-1.010) 01/18/18 12:50 Urine Protein Negative mg/dL (NEGATIVE) 01/18/18 12:50 Urine Glucose (UA) Negative mg/dL (NEGATIVE) 01/18/18 12:50 Urine Ketones Negative mg/dL (NEGATIVE) 01/18/18 12:50 Urine Blood 5 /ul (NEGATIVE) H 01/18/18 12:50 Urine Nitrate Negative (NEGATIVE) 01/18/18 12:50 Urine Bilirubin Negative mg/dl (NEGATIVE) 01/18/18 12:50 Urine Urobilinogen Normal EU/dl (NORMAL) 01/18/18 12:50 Ur Leukocyte Esterase Negative /ul (NEGATIVE) 01/18/18 12:50 Urine RBC 0-5 /hpf (0-5) 01/18/18 12:50 Urine WBC None seen /hpf (0-5) 01/18/18 12:50 Ur Epithelial Cells 0-5 /hpf (0-5) 01/18/18 12:50 Urine Bacteria None seen (NONE) 01/18/18 12:50 Urine Culture Comments No culture indicated 01/18/18 12:50 Assessment/Plan - Narrative Narrative: Mrs Houston is admitted to the scu and is on a cardizem drip. She is no distress and tolerating the medicne well. I will continue her usual home meds. Repeatlab in the morning - Assessment/Plan (1) Atrial fibrillation with RVR Problem: Acute (2) Chest pain Problem: Resolved Qualifiers: Chest pain type: other chest pain Qualified Code(s): R07.89 - Other chest pain; R07.8 - Other chest pain (3) COPD (chronic obstructive pulmonary disease) Problem: Chronic Qualifiers: COPD type: chronic bronchitis (4) Hypertension Problem: Acute Qualifiers: Hypertension type: essential hypertension Qualified Code(s): I10 - Essential (primary) hypertension
[2018-01-18] MEDS ORDERED: ONDANSETRON 4 MG TAB.RAPDIS PO PRN (16:55)
[2018-01-18 17:36] LABS: Anion Gap 10.7 mmol/L (6.8-13.8); BUN/Creatinine Ratio 16.9 (9.0-21.6); Calcium * 9.4 mg/dL (7.9-10.9); Estimated Creat Clear 56.8; Potassium 3.7 mmol/L (3.4-4.6)
[2018-01-18] MEDS ORDERED: ZOLPIDEM TARTRATE 5 MG TABLET PO PRN (18:18)
[2018-01-18] MEDS ORDERED: LORazepam 1 MG TABLET PO PRN (18:19)
[2018-01-18] MEDS ORDERED: rOPINIRole HCL 0.5 MG TABLET PO SCH (20:00)
[2018-01-18] MEDS: FLECAINIDE ACETATE 100 MG TABLET PO SCH (20:27)
[2018-01-19 05:39] LABS: Hemoglobin 15.3 gm/dL (12.5-16.0); Mean Cell Volume 90.4 fl (78-100); Mean Corpuscular Hemoglobin 30.1 pg (27-31); Mean Corpuscular Hgb Conc 33.3 g/dl (32-36); Mean Platelet Volume 10.9 fl (8-12.5); Neutrophil # 4.4 K/mm3 (1.3-6.0); Neutrophil % 50.3 % (42-75.0); Platelet Count 223 K/mm3 (150-450); Red Blood Count 5.09 M/mm3 (4.2-5.4); Red Cell Distribution Width 13.9 % (11.5-14.0); White Blood Count 8.7 K/mm3 (4.0-10.5)
[2018-01-19] MEDS ORDERED: PANTOPRAZOLE SODIUM 20 MG TABLET.DR PO SCH (07:00)
[2018-01-19] MEDS ORDERED: LEVOTHYROXINE SODIUM 75 MCG TABLET PO SCH (07:30)
[2018-01-19] MEDS: FLECAINIDE ACETATE 100 MG TABLET PO SCH (08:10)
[2018-01-19] MEDS ORDERED: buPROPion HCL 100 MG TABLET PO SCH (09:00)
[2018-01-19] MEDS ORDERED: METOPROLOL TARTRATE 100 MG TABLET PO SCH (09:00)
[2018-01-19] MEDS ORDERED: DILTIAZEM HCL 240 MG CAP.SR.24H PO ONE (10:30)
--- NOTE | 2018-01-19 11:33 | DS ---
(1) Atrial fibrillation with RVR Problem: Acute (2) COPD (chronic obstructive pulmonary disease) Problem: Chronic Qualifiers: COPD type: chronic bronchitis (3) Hypertension Problem: Acute Qualifiers: Hypertension type: essential hypertension Qualified Code(s): I10 - Essential (primary) hypertension Description of Stay: Lianne Houston is a 72-year-old female who presented to the emergency room with shortness of breath chest discomfort and terms of some pressure and noticing that her heart was too fast. She's had 2 other hospitalizations or she has had Cardizem drip to convert her back to normal sinus rhythm. She is placed in the SCU unit so that we could give her a Cardizem drip. This has slowed her heart rate down into the 80s and intermittently would convert her back to normal sinus rhythm but then she would go back into atrial fibrillation. I introduced metoprolol had been increased to 200 mg twice a day and without the Cardizem drip for heart rate rebounds up to about 112 bpm. She is in no distress at this time and has no chest discomfort. She missed to feeling anxious. She relates that she started a new antidepressant about a month ago and since then she has been more anxious and more irritable and she thinks that her emotional upset may have what triggered this event. I have not been able to keep her in normal sinus rhythm will just do rate control for now. I will send her home on diltiazem CD 240 mg per day and metoprolol 100 mg twice a day. She'll need to see her belt puncher, Dr. Kelly , and have further recommendations recommended. I will prescribe a course for anticoagulation until she gets her atrial fibrillation resolved. Procedures Performed: none Results and Findings: Lab Pending Results 01/18/18 12:50: WBC 7.6, RBC 5.18, Hgb 15.7, Hct 47.3 H, MCV 91.3, MCH 30.3, MCHC 33.2, RDW 13.7, Plt Count 211, MPV 10.7, Immature Gran % (Auto) 0.30, Immature Gran # (Auto) 0.02, Neutrophils % 48.7, Lymphocytes % 38.4, Monocytes % 9.7 H, Eosinophils % 2.6, Basophils % 0.3, Nucleated RBC % 0.0, Neutrophils # 3.7, Lymphocytes # 2.92, Monocytes # 0.7, Eosinophils # 0.2, Absolute Basophils 0.0 01/18/18 12:50: Sodium 138, Plasma Sodium 138, Potassium 3.7, Chloride 102, Carbon Dioxide 30.7, Anion Gap 9.0, BUN 15, Creatinine 1.01, Est GFR (Non-Af Amer) 58 L, BUN/Creatinine Ratio 14.9, Random Glucose 90, Calcium 9.7, Calcium Adj for Albumin 9.3, Total Bilirubin 0.6, AST 27, ALT 26, Alkaline Phosphatase 156, Troponin I Less than 0.017, Total Protein 8.9 H, Albumin 4.1, TSH 0.245 L 01/18/18 12:50: Urine Color Yellow, Urine Appearance Clear, Urine pH 7.0, Ur Specific [place] 1.010, Urine Protein Negative, Urine Glucose (UA) Negative, Urine Ketones Negative, Urine Blood 5 H, Urine Nitrate Negative, Urine Bilirubin Negative, Urine Urobilinogen Normal, Ur Leukocyte Esterase Negative, Urine RBC 0-5, Urine WBC None seen, Ur Epithelial Cells 0-5, Urine Bacteria None seen, Urine Culture Comments No culture indicated 01/18/18 17:15: Sodium 138, Plasma Sodium 138, Potassium 3.7, Chloride 104, Carbon Dioxide 27.0, Anion Gap 10.7, BUN 14, Creatinine 0.83, Est GFR (Non-Af Amer) 72 D, BUN/Creatinine Ratio 16.9, Random Glucose 96, Calcium 9.4 01/19/18 06:00: WBC 8.7, RBC 5.09, Hgb 15.3, Hct 46.0, MCV 90.4, MCH 30.1, MCHC 33.3, RDW 13.9, Plt Count 223, MPV 10.9, Immature Gran % (Auto) 0.30, Immature Gran # (Auto) 0.03, Neutrophils % 50.3, Lymphocytes % 34.9, Monocytes % 11.1 H, Eosinophils % 3.1 H, Basophils % 0.3, Nucleated RBC % 0.0, Neutrophils # 4.4, Lymphocytes # 3.03, Monocytes # 1.0, Eosinophils # 0.3, Absolute Basophils 0.0 Discharge Location: Home Disposition: Home self-care Condition: Fair Face to Face Encounter completed per CMS Guidelines: No Discharge Activity: Activity as tolerated Discharge Diet: General/regular food Prescriptions (Any new or edited meds): Diltiazem HCl [Diltiazem 24Hr Cd] 240 mg PO DAILY #30 cap.er.24h Metoprolol Tartrate [Lopressor] 100 mg PO BID #60 tab Metoprolol Tartrate [Lopressor] 100 mg PO BID #60 tab Complete Home Medications List: Complete Home Medication List: Albuterol Sulfate/Ipratropium [Duoneb 2.5-0.5MG/3ML Soln] 3 ml IH PRN PRN Cholecalciferol (Vitamin D3) [Vitamin D3] 10,000 unit PO DAILY 01/18/18 Cyanocobalamin (Vitamin B-12) [Vitamin B12] 3,000 mcg PO DAILY 01/18/18 Dexlansoprazole [Dexilant] 30 mg PO DAILY 01/18/18 Flecainide Acetate 50 mg PO BID 01/18/18 L.acidoph,Paracasei, B.lactis [Probiotic] 1 each PO DAILY 01/18/18 LORazepam [Ativan] 1 mg PO PRN PRN 01/18/18 Levothyroxine Sodium [Synthroid] 75 mcg PO DAILY 01/18/18 Losartan Potassium [Cozaar] 50 mg PO DAILY 01/18/18 Metoprolol Tartrate [Lopressor] 50 mg PO BID 01/18/18 Mv-Mn/Folic Acid/Calcium/Vit K [Women's 50 Plus Daily Formula] 1 each PO DAILY 01/18/18 PARoxetine HCL [Paxil] 40 mg PO DAILY 01/18/18 Rivaroxaban [Xarelto] 20 mg PO BID 01/18/18 Simvastatin [Zocor] 10 mg PO DAILY 01/18/18 Zolpidem Tartrate [Ambien] 5 mg PO HS PRN 01/18/18 buPROPion HCL [Wellbutrin] 100 mg PO DAILY 01/18/18 rOPINIRole HCL [Requip] 0.25 mg PO HS 01/18/18 Diltiazem HCl [Diltiazem 24Hr Cd] 240 mg PO DAILY #30 cap.er.24h 01/19/18 LORazepam [Ativan] 1 mg PO HS PRN tablet 01/19/18 Metoprolol Tartrate [Lopressor] 100 mg PO BID #60 tab 01/19/18 Metoprolol Tartrate [Lopressor] 100 mg PO BID #60 tab 01/19/18 Zolpidem Tartrate [Ambien] 5 mg PO HS PRN tablet 01/19/18 rOPINIRole HCL [Requip] 0.25 mg PO 2000 tablet 01/19/18
[2018-01-19 13:21] VITALS: BP 117/89
== END 2018-01-19 12:06 | disposition home or self-care (01) | DRG 310 ==
LOC: ER 12:27 → MS 12:27 → OBSVTOIN 15:05 → SCU 15:59
PROVIDERS: ADMIT Family Medicine; ATTEND Family Medicine
DX: F32.9 Major depressive disorder, single episode, unspecified; Z88.1 Allergy status to other antibiotic agents; Z88.5 Allergy status to narcotic agent; Z82.49 Family history of ischemic heart disease and other diseases of the circulatory system; F41.9 Anxiety disorder, unspecified; K21.9 Gastro-esophageal reflux disease without esophagitis; Z79.01 Long term (current) use of anticoagulants; I48.91 Unspecified atrial fibrillation; Z87.891 Personal history of nicotine dependence; E03.9 Hypothyroidism, unspecified; G47.00 Insomnia, unspecified; Z88.8 Allergy status to other drugs, medicaments and biological substances; J44.9 Chronic obstructive pulmonary disease, unspecified; I10 Essential (primary) hypertension
CPT/HCPCS: 36415; 80048; 80053; 81001; 84443; 84484; 85025; 93005; 96374; 96375; 96376; 99285

== ENCOUNTER 2018-05-02 17:25 | Observation (INO) | payer BC, MEDICARE ==
--- NOTE | 2018-05-02 17:35 | ERNOTE ---
Neuro HPI ER Record Presenting Symptoms: impaired speech Time Seen by Provider: 05/02/18 17:25 Source: patient, family Immunizations: IMMUNIZATION HX Immunizations Up to Date Yes History of Influenza Vaccine Yes Hx Pneumococcal Vaccination Yes Allergies/Adverse Reactions: Allergies Allergy/AdvReac Type Severity Reaction Status Date / Time desvenlafaxine succinate Allergy Mild Headache Verified 05/02/18 17:34 [From Pristiq] morphine Allergy Mild hypotension Verified 05/02/18 17:34 metronidazole [From Flagyl] Allergy Unknown Verified 05/02/18 17:34 citalopram hydrobromide AdvReac Mild Headache Verified 05/02/18 17:34 [From Celexa] cyclobenzaprine HCl AdvReac Mild Headache Verified 05/02/18 17:34 [From Flexeril] desipramine AdvReac Mild Headache Verified 05/02/18 17:34 estradiol [From Vagifem] AdvReac Mild Itching Verified 05/02/18 17:34 estrogens, conjugated AdvReac Mild Itching Verified 05/02/18 17:34 [From Prempro] indomethacin AdvReac Mild Headache Verified 05/02/18 17:34 levofloxacin [From Levaquin] AdvReac Mild RASH Verified 05/02/18 17:34 medroxyprogesterone acetate AdvReac Mild Itching Verified 05/02/18 17:34 [From Prempro] niacin AdvReac Mild RASH Verified 05/02/18 17:34 topiramate [From Topamax] AdvReac Mild Headache Verified 05/02/18 17:34 triazolam [From Halcion] AdvReac Mild Itching Verified 05/02/18 17:34 Home Medications: HOME MEDICATIONS Albuterol Sulfate/Ipratropium [Duoneb 2.5-0.5MG/3ML Soln] 3 ml IH PRN PRN 01/18/18 [Last Taken Unknown] Cholecalciferol (Vitamin D3) [Vitamin D3] 10,000 unit PO DAILY 01/18/18 [Last Taken 01/18/18 08:00] Dexlansoprazole [Dexilant] 30 mg PO DAILY 01/18/18 [Last Taken 01/18/18 08:00] Flecainide Acetate 50 mg PO BID 01/18/18 [Last Taken 01/18/18 08:00] L.acidoph,Paracasei, B.lactis [Probiotic] 1 each PO DAILY 01/18/18 [Last Taken 01/18/18 08:00] LORazepam [Ativan] 1 mg PO PRN PRN 01/18/18 [Last Taken Unknown] Levothyroxine Sodium [Synthroid] 75 mcg PO Q48H 01/18/18 [Last Taken 01/18/18 08:00] Losartan Potassium [Cozaar] 50 mg PO DAILY 01/18/18 [Last Taken 01/18/18 08:00] Mv-Mn/Folic Acid/Calcium/Vit K [Women's 50 Plus Daily Formula] 1 each PO DAILY 01/18/18 [Last Taken 01/18/18 08:00] PARoxetine HCL [Paxil] 40 mg PO DAILY 01/18/18 [Last Taken 01/18/18 08:00] Rivaroxaban [Xarelto] 20 mg PO BID 01/18/18 [Last Taken 01/18/18 08:00] Simvastatin [Zocor] 10 mg PO DAILY 01/18/18 [Last Taken 01/18/18 08:00] rOPINIRole HCL [Requip] 0.5 - 0.75 mg PO 1930 01/18/18 [Last Taken 01/17/18 21:00] Metoprolol Tartrate [Lopressor] 100 mg PO BID #60 tab 01/19/18 [Last Taken Unknown] Gabapentin 100 mg PO HS 05/02/18 [Last Taken Unknown] LORazepam [Ativan] 1 mg PO HS 05/02/18 [Last Taken Unknown] Levothyroxine Sodium [Synthroid] 50 mcg PO Q48H 05/02/18 [Last Taken Unknown] Zolpidem Tartrate [Ambien] 5 - 10 mg PO HS PRN 05/02/18 [Last Taken Unknown] - History of Present Illness Narrative: Patient has had a left sided headache for about a month. She was home 30minutes ago when she all of a sudden was unable to get any words out, symptoms improved on the way to the hospital. She still has a headache, denies any numbness and weakness, no vision changes Date (Duration): 05/02/18 Time (Timing): 17:00 Onset: sudden onset, better - Character of Deficits New weakness: Absent: RUE, RLE, LUE, LLE, facial (rt), facial (lt) Altered sensation: Absent: RUE, RLE, LLE, facial (rt), facial (lt) Additional Deficits: Absent: vision problems, difficulty swallowing, decrease ability to walk Baseline Cognition: Present: alert, oriented x 4 Baseline Gait: Present: walks w/o assistance Associated Symptoms: Reports: headache. Denies: fever/chills, chest pain, altered mental status, confused, trouble concentrating Prior Treament: Reports: recently seen. Denies: similar symptoms before Review of Systems - Review of Systems Constitutional: Absent: recent illness, fever EYE: Absent: vision changes ENT: Absent: nose congestion, sore throat Respiratory: Absent: shortness of breath Cardiology: Absent: chest pain Gastrointestinal/Abdominal: Absent: nausea, vomiting, abdominal pain Genitourinary: Present: no symptoms reported Musculoskeletal: Absent: back pain, neck pain Skin: Absent: rash Neurological: Present: See HPI, headache. Absent: weakness, numbness Medical History (Last Reviewed 05/02/18 @ 20:36 by Aishwarya Mtz MD) Anxiety Atrial fibrillation COPD (chronic obstructive pulmonary disease) Depression GERD (gastroesophageal reflux disease) Hypertension Hypothyroidism Insomnia Surgical History: Surgical History (Last Reviewed 05/02/18 @ 20:36 by Aishwarya Mtz MD) History of appendectomy History of carpal tunnel release History of cardiac radiofrequency ablation Onset Date: ~2010 History of section History of hysterectomy Family History: Family History (Last Reviewed 05/02/18 @ 18:38 by Doris Wang RN) Father Myocardial infarction Father Diabetes Mother Cancer Social History: Preferred Language Malagasy Smoking Status Former smoker Abuse History No History of abuse Psych History Hx of Anxiety,Hx of Depression,Currently on Meds No Social History Section defined Physical Exam - Physical Exam General Appearance: Present: wd/wn, alert, no apparent distress, anxious Head Exam: Present: normal inspection Eye Exam: Normal inspection: bilateral, PERRL: bilateral, EOMI: bilateral Ears, Nose, Throat: Present: normal ENT inspection, normal pharynx Neck: Present: normal inspection. 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 - Vital Signs Patient's Vital Signs:: I have reviewed the patient's vital signs. Vital Signs: Vital Signs 05/02/18 17:27 Pulse Rate 68 Respiratory Rate 14 O2 Sat by Pulse Oximetry 96 - EKG EKG #1 EKG: NSR, nonspecific ST T wave changes EKG read: Interp. by me - CT/Ultrasound CT/Ultrasound Narrative: CT: no acute - Progress/Reassessment Chief Complaint: CerebroVascular Accident Progress Note-Subjective: 05/02/18 17:43 symptoms improving, speech fluent 05/02/18 18:[address] results with patient, speech fluent 05/02/18 18:40 patient very anxious, is due for BP medication, occasionally struggling to get word out will give BP and anxiety medication 05/02/18 19:28 discussed with results with patient and family agreed to admission 05/02/18 19:[address] Meza, okay to admit for observation for TIA, start prednisone 60mg daily for concerns for temporal arteritis and get biopsie later 05/02/18 19:[address] Feng, she doesn't do temporal artery biopsies 05/02/18 19:50 discussed plan with patient and family will treat pain with morphine (reacted only with oversedation in the past, no try allergies) Departure Clinical Impression: TIA (transient ischemic attack) - Departure Disposition: Still a patient Condition: Stable
[2018-05-02 17:55] LABS: Hematocrit 47.4 % (37.0-47.0); Hemoglobin 15.7 gm/dL (12.5-16.0); Mean Cell Volume 92.2 fl (78-100); Mean Corpuscular Hemoglobin 30.5 pg (27-31); Mean Corpuscular Hgb Conc 33.1 g/dl (32-36); Neutrophil # 4.5 K/mm3 (1.3-6.0); Neutrophil % 57.7 % (42-75.0); Platelet Count 203 K/mm3 (150-450); Red Blood Count 5.14 M/mm3 (4.2-5.4); Red Cell Distribution Width 13.1 % (11.5-14.0); White Blood Count 7.8 K/mm3 (4.0-10.5)
[2018-05-02 18:07] LABS: Prothrombin Time (Patient) 11.8 Seconds (9.0-11.0)
[2018-05-02 18:09] LABS: INR 1.18 INR (0.90-1.10); Partial Thrombolplastin Time 36.9 Seconds (24-32)
[2018-05-02 18:14] LABS: ALT 15 U/L (19-67); AST 24 U/L (0-48); Albumin * 3.8 gm/dl (3.4-5.0); Alkaline Phosphatase * 132 U/L (50-170); Anion Gap 13.8 mmol/L (6.8-13.8); BUN/Creatinine Ratio 18.8 (9.0-21.6); Bilirubin, Total 0.5 mg/dL (0.0-1.1); Blood Urea Nitrogen 16 mg/dL (3-23); Ca. Corrected For Albumin 9.7 mg/dL (8.4-10.2); Calcium * 9.9 mg/dL (7.9-10.9); Chloride 103 mmol/L (97-106); Glucose * 119 mg/dL (70-110); Potassium 3.8 mmol/L (3.4-4.6); Sodium 143 mmol/L (132-142); Total Protein 8.4 gm/dL (6.2-8.2); Troponin I Less than 0.017 ng/mL (0.00-0.10)
[2018-05-02] MEDS ORDERED: METOPROLOL TARTRATE 100 MG TABLET PO ONE (18:44)
[2018-05-02] MEDS ORDERED: LORazepam 1 MG TABLET PO ONE (18:45)
[2018-05-02] MEDS ORDERED: MORPHINE SULFATE 2 MG/ML DISP.SYRIN IV ONE (19:54)
[2018-05-02] MEDS ORDERED: predniSONE 20 MG TABLET PO ONE (19:54)
[2018-05-02] MEDS ORDERED: MORPHINE SULFATE 4 MG/ML SYRG IV PRN (20:04)
[2018-05-02] MEDS ORDERED: ACETAMINOPHEN 500 MG TABLET PO PRN (20:04)
[2018-05-02] MEDS ORDERED: oxyCODONE HCL/ACETAMINOPHEN 1 TAB TABLET PO PRN (20:04)
[2018-05-02] MEDS ORDERED: ZOLPIDEM TARTRATE 5 MG TABLET PO PRN (23:22)
[2018-05-02] MEDS ORDERED: LORazepam 1 MG TABLET PO PRN (23:23)
[2018-05-02] MEDS ORDERED: rOPINIRole HCL 0.5 MG TABLET ONE (23:35)
[2018-05-02] MEDS ORDERED: METOPROLOL TARTRATE 100 MG TABLET ONE (23:37)
[2018-05-02] MEDS ORDERED: GABAPENTIN 100 MG CAPSULE ONE (23:38)
[2018-05-02] MEDS ORDERED: ROSUVASTATIN CALCIUM 10 MG TABLET ONE (23:39)
[2018-05-02] MEDS ORDERED: SIMVASTATIN 20 MG TABLET ONE (23:41)
[2018-05-03] MEDS ORDERED: ACETAMINOPHEN 325 MG TABLET PO PRN (07:30)
[2018-05-03] MEDS ORDERED: MORPHINE SULFATE 2 MG/ML DISP.SYRIN IV PRN (07:30)
--- NOTE | 2018-05-03 08:27 | HP ---
Chief Complaint - Chief Complaint Date of Service: 05/03/18 Time of Service: 08:26 Chief Complaint: TIA like symptoms/headache History of Present Illness: Lianne Houston, is a 72-year-old white female, with past medical history of paroxysmal atrial fibrillation, hypertension, COPD, Hypothyroidism, who was admitted on 05/02/2018 for TIA like symptoms and headache. Over the last month prior to her admission, the patient has been having left-sided headache described as sharp, starting from the back of her ear and going to the left side of her face and head. She says that it would be 8/10, associated with some jaw claudication. She denied any visual changes except for her cataract. She thought initially it was due to her ear and so she went Dr. Harper, the ENT doctor, and she was told that there was nothing wrong with her ear. She saw Yamila Simmons and she ordered for an MRI and referred her to neurology . The neurologist ordered a cervical Xray . These are scheduled for Saturday. She said on the day of admission , when she was in the kitchen, her tongue started getting hard and she could not express what she was wanting to say. She also had some numbness and tingling of her fingers and so she went to our emergency room. Her head CT scan was showed no acute intracranial process. Her EKG showed normal sinus rate and first-degree AV block with ventricular rate of 60. Her labs were not significant. Per ED physician she was very tender on her temporal artery area. She was then admitted for observation and she was given prednisone. Medical History (Last Reviewed 05/02/18 @ 22:10 by Madie Peterson RN) Anxiety Atrial fibrillation COPD (chronic obstructive pulmonary disease) Depression GERD (gastroesophageal reflux disease) Hypertension Hypothyroidism Insomnia Surgical History: Surgical History (Last Reviewed 05/02/18 @ 22:10 by Madie Peterson RN) History of appendectomy History of cardiac radiofrequency ablation Onset Date: ~2010 History of carpal tunnel release History of section History of hysterectomy Family History: Family History (Last Reviewed 05/02/18 @ 22:10 by Madie Peterson RN) Father Myocardial infarction Father Diabetes Mother Cancer Social History: Patient Lives/Resources Home Utilized Occupation Retired Preferred Language Turkmen Do you have any evangelical or Yes: Presbyterian cultural preference? Smoking Status Former smoker Have you smoked in the past 12 No months Do you dip or chew tobacco No Abuse History No History of abuse Psych History Hx of Anxiety,Hx of Depression,Currently on Meds Alcohol Use none Drug Use none No Social History Section defined Review Of Systems (GEN) - Review of Systems Generalized/Overall Review: Absent: Weakness, Chills, Fever EENTM: Absent: Blurred Vision Respiratory: Absent: Cough, Shortness of Breath Cardiac: Absent: Chest Pain, Edema, Palpitations Abdominal: Absent: Nausea, Vomiting Genitourinary: Absent: Urgency, Frequency Musculoskeletal: Absent: Joint Pain Neurological: Present: Headache - improved 06/01, Numbness - resolved, Tingling - resolved Immunizations: IMMUNIZATION HX Immunizations Up to Date Yes History of Influenza Vaccine No Hx Pneumococcal Vaccination No Allergies/Adverse Reactions: Allergies Allergy/AdvReac Type Severity Reaction Status Date / Time desvenlafaxine succinate Allergy Mild Headache Verified 05/02/18 17:34 [From Pristiq] morphine Allergy Mild hypotension Verified 05/02/18 17:34 metronidazole [From Flagyl] Allergy Unknown Verified 05/02/18 17:34 citalopram hydrobromide AdvReac Mild Headache Verified 05/02/18 17:34 [From Celexa] cyclobenzaprine HCl AdvReac Mild Headache Verified 05/02/18 17:34 [From Flexeril] desipramine AdvReac Mild Headache Verified 05/02/18 17:34 estradiol [From Vagifem] AdvReac Mild Itching Verified 05/02/18 17:34 estrogens, conjugated AdvReac Mild Itching Verified 05/02/18 17:34 [From Prempro] indomethacin AdvReac Mild Headache Verified 05/02/18 17:34 levofloxacin [From Levaquin] AdvReac Mild RASH Verified 05/02/18 17:34 medroxyprogesterone acetate AdvReac Mild Itching Verified 05/02/18 17:34 [From Prempro] niacin AdvReac Mild RASH Verified 05/02/18 17:34 topiramate [From Topamax] AdvReac Mild Headache Verified 05/02/18 17:34 triazolam [From Halcion] AdvReac Mild Itching Verified 05/02/18 17:34 Home Medications: HOME MEDICATIONS Albuterol Sulfate/Ipratropium [Duoneb 2.5-0.5MG/3ML Soln] 3 ml IH PRN PRN 09/29/18 [Last Taken Unknown] Dexlansoprazole [Dexilant] 30 mg PO DAILY 01/18/18 [Last Taken 01/18/18 08:00] Flecainide Acetate 50 mg PO BID 01/18/18 [Last Taken 01/18/18 08:00] L.acidoph,Paracasei, B.lactis [Probiotic] 1 each PO DAILY 01/18/18 [Last Taken 01/18/18 08:00] LORazepam [Ativan] 1 mg PO PRN PRN 01/18/18 [Last Taken Unknown] Levothyroxine Sodium [Synthroid] 75 mcg PO Q48H 01/18/18 [Last Taken 05/01/18 07:00] Losartan Potassium [Cozaar] 50 mg PO DAILY 01/18/18 [Last Taken 01/18/18 08:00] Mv-Mn/Folic Acid/Calcium/Vit K [Women's 50 Plus Daily Formula] 1 each PO DAILY 01/18/18 [Last Taken 01/18/18 08:00] PARoxetine HCL [Paxil] 40 mg PO DAILY 01/18/18 [Last Taken 01/18/18 08:00] Rivaroxaban [Xarelto] 20 mg PO DAILY 01/18/18 [Last Taken 01/18/18 08:00] Simvastatin [Zocor] 10 mg PO HS 01/18/18 [Last Taken 01/18/18 08:00] rOPINIRole HCL [Requip] 0.5 mg PO 1930 01/18/18 [Last Taken 01/17/18 21:00] Metoprolol Tartrate [Lopressor] 100 mg PO BID #60 tab 01/19/18 [Last Taken Unknown] Gabapentin 100 mg PO HS 05/02/18 [Last Taken Unknown] LORazepam [Ativan] 1 mg PO HS 05/02/18 [Last Taken Unknown] Levothyroxine Sodium [Synthroid] 50 mcg PO Q48H 05/02/18 [Last Taken 05/02/18 07:00] Zolpidem Tartrate [Ambien] 5 - 10 mg PO HS PRN 05/02/18 [Last Taken Unknown] predniSONE [Prednisone] 3 tab PO DAILY #21 tab 05/03/18 [Last Taken Unknown] Exam - Exam Vital Signs: Vital Signs - Last Taken Temp 36.7 C 05/03/18 06:54 Pulse 51 L 05/03/18 06:54 Resp 16 05/03/18 06:54 BP 121/65 05/03/18 06:54 Pulse Ox 100 05/03/18 06:54 Constitutional: Present: Alert, Oriented x3, Cooperative ENT Exam: Present: hearing grossly normal Eye Exam: bilateral eye: normal inspection, PERRL, EOMI Neck: Present: supple Respiratory: Present: normal breath sounds, No rales, No wheezing Cardiovascular/Chest: Present: regular rate, rhythm, no JVD, systolic murmur Abdomen: Present: Normal bowel sounds, soft, nontender, nondistended Extremity: Present: no pedal edema, no calf tenderness Neurologic: Present: order planner II-XII nml as tested, no motor/sensory deficits, oriented x 3 Diagnostic Studies: Abnormal Lab Results 05/02/18 05/02/18 05/02/18 Range/Units 17:52 17:52 17:52 Hct 47.4 H (37.0-47.0) % ESR 25 H (0-15) mm/hr PT 11.8 H (9.0-11.0) Seconds INR (Anticoag Therapy) 1.18 H (0.90-1.10) INR PTT ([facility]) 36.9 H (24-32) Seconds Sodium (132-142) mmol/L Plasma Sodium (130-142) mmol/L Random Glucose (70-110) mg/dL ALT (19-67) U/L Total Protein (6.2-8.2) gm/dL 05/02/18 Range/Units 17:52 Hct (37.0-47.0) % ESR (0-15) mm/hr PT (9.0-11.0) Seconds INR (Anticoag Therapy) (0.90-1.10) INR PTT ([facility]) (24-32) Seconds Sodium 143 H (132-142) mmol/L Plasma Sodium 143 H (130-142) mmol/L Random Glucose 119 H (70-110) mg/dL ALT 15 L (19-67) U/L Total Protein 8.4 H (6.2-8.2) gm/dL Laboratory Results WBC 7.8 K/mm3 (4.0-10.5) 05/02/18 17:52 RBC 5.14 M/mm3 (4.2-5.4) 05/02/18 17:52 Hgb 15.7 gm/dL (12.5-16.0) 05/02/18 17:52 Hct 47.4 % (37.0-47.0) H 05/02/18 17:52 MCV 92.2 fl (78-100) 05/02/18 17:52 MCH 30.5 pg (27-31) 05/02/18 17:52 MCHC 33.1 g/dl (32-36) 05/02/18 17:52 RDW 13.1 % (11.5-14.0) 05/02/18 17:52 Plt Count 203 K/mm3 (150-450) 05/02/18 17:52 MPV 11.0 fl (8-12.5) 05/02/18 17:52 Immature Gran % (Auto) 0.30 % (0.001-0.429) 05/02/18 17:52 Immature Gran # (Auto) 0.02 K/mm3 (0.000-0.0310) 05/02/18 17:52 Neutrophils % 57.7 % (42-75.0) 05/02/18 17:52 Lymphocytes % 31.1 % (20-51) 05/02/18 17:52 Monocytes % 7.6 % (0.0-9) 05/02/18 17:52 Eosinophils % 2.8 % (0.0-3.0) 05/02/18 17:52 Basophils % 0.5 % (0.0-1.0) 05/02/18 17:52 Nucleated RBC % 0.0 k/mm3 (0-1) 05/02/18 17:52 Neutrophils # 4.5 K/mm3 (1.3-6.0) 05/02/18 17:52 Lymphocytes # 2.41 k/mm3 (1.5-3.5) 05/02/18 17:52 Monocytes # 0.6 k/mm3 (0.0-1.0) 05/02/18 17:52 Eosinophils # 0.2 k/mm3 (0.0-0.7) 05/02/18 17:52 Absolute Basophils 0.0 k/mm3 (0.0-0.1) 05/02/18 17:52 ESR 25 mm/hr (0-15) H 05/02/18 17:52 PT 11.8 Seconds (9.0-11.0) H 05/02/18 17:52 INR (Anticoag Therapy) 1.18 INR (0.90-1.10) H 05/02/18 17:52 PTT ([facility]) 36.9 Seconds (24-32) H 05/02/18 17:52 Sodium 143 mmol/L (132-142) H 05/02/18 17:52 Plasma Sodium 143 mmol/L (130-142) H 05/02/18 17:52 Potassium 3.8 mmol/L (3.4-4.6) 05/02/18 17:52 Chloride 103 mmol/L (97-106) 05/02/18 17:52 Carbon Dioxide 30.0 mmol/L (24-32.6) 05/02/18 17:52 Anion Gap 13.8 mmol/L (6.8-13.8) 05/02/18 17:52 BUN 16 mg/dL (3-23) 05/02/18 17:52 Creatinine 0.85 mg/dL (0.4-1.4) 05/02/18 17:52 Est GFR (Non-Af Amer) 70 mL/min (60-130) 05/02/18 17:52 BUN/Creatinine Ratio 18.8 (9.0-21.6) 05/02/18 17:52 Random Glucose 119 mg/dL (70-110) H 05/02/18 17:52 Calcium 9.9 mg/dL (7.9-10.9) 05/02/18 17:52 Calcium Adj for Albumin 9.7 mg/dL (8.4-10.2) 05/02/18 17:52 Total Bilirubin 0.5 mg/dL (0.0-1.1) 05/02/18 17:52 AST 24 U/L (0-48) 05/02/18 17:52 ALT 15 U/L (19-67) L 05/02/18 17:52 Alkaline Phosphatase 132 U/L (50-170) 05/02/18 17:52 Troponin I Less than 0.017 ng/mL (0.00-0.10) 05/02/18 17:52 C-Reactive Prot, Quant Less than 0.2 mg/dL (0.0-0.9) 05/02/18 17:54 Total Protein 8.4 gm/dL (6.2-8.2) H 05/02/18 17:52 Albumin 3.8 gm/dl (3.4-5.0) 05/02/18 17:52 Assessment/Plan - Narrative Narrative: continue with her other home medications. - Assessment/Plan (1) Headache Assessment: r/o temporal arteritis vs trigeminal neuralgia vs Migraine. she has MRI and cervical xray scheduled for Saturday.will schedule her a temporal artery biopsy next week on outpatient basis and continue with her Prednisone. her ESR is not significantly elevated but she has jaw claudications/ temporal tenderness with it. she will keep her appoinrment with neurology. Problem: Acute Qualifiers: Headache chronicity pattern: chronic headache (2) TIA (transient ischemic attack) Assessment: she had an Echo in January and showed severe MS and moderate MR. she will need to follow up with cardiology. will schedule a CUS on outpatient basis. continue with her Xarelto. Problem: Acute (3) COPD (chronic obstructive pulmonary disease) Problem: Chronic Qualifiers: COPD type: chronic bronchitis (4) Hypothyroidism Problem: Chronic (5) Hypertension Problem: Chronic Qualifiers: Hypertension type: essential hypertension Qualified Code(s): I10 - Essential (primary) hypertension
[2018-05-03] MEDS ORDERED: LORazepam 1 MG TABLET PO PRN (08:56)
[2018-05-03] MEDS ORDERED: ZOLPIDEM TARTRATE 5 MG TABLET PO PRN (08:56)
[2018-05-03] MEDS ORDERED: ALBUTEROL SULFATE/IPRATROPIUM 3 ML NEBU IH PRN (08:56)
[2018-05-03] MEDS ORDERED: PARoxetine HCL 20 MG TABLET PO SCH (09:00)
[2018-05-03] MEDS ORDERED: MULTIVIT-MIN/FA/LYCOPEN/LUTEIN 1 TAB TABLET PO SCH (09:00)
[2018-05-03] MEDS ORDERED: METOPROLOL TARTRATE 50 MG TABLET PO SCH (09:00)
[2018-05-03] MEDS ORDERED: LOSARTAN POTASSIUM 50 MG TABLET PO SCH (09:00)
[2018-05-03] MEDS ORDERED: RIVAROXABAN 20 MG TABLET PO SCH (09:00)
[2018-05-03] MEDS ORDERED: METOPROLOL TARTRATE 100 MG TABLET PO SCH (09:00)
[2018-05-03] MEDS ORDERED: FLECAINIDE ACETATE 100 MG TABLET PO SCH (09:00)
[2018-05-03] MEDS ORDERED: LEVOTHYROXINE SODIUM 75 MCG TABLET PO SCH (09:30)
[2018-05-03] MEDS ORDERED: LACTOBACILLUS ACIDOPHILUS 100 CAP BTL PO SCH (09:45)
[2018-05-03] MEDS ORDERED: PANTOPRAZOLE SODIUM 20 MG TABLET.DR PO SCH (10:00)
--- NOTE | 2018-05-03 12:09 | DS ---
(1) Headache Diagnosis(s): r/o temporal arteitisvs trigeminal neuralgia vs migraine Problem: Acute Qualifiers: Headache chronicity pattern: chronic headache (2) TIA (transient ischemic attack) Problem: Acute (3) COPD (chronic obstructive pulmonary disease) Problem: Chronic Qualifiers: COPD type: chronic bronchitis (4) Hypothyroidism Problem: Chronic (5) Hypertension Problem: Chronic Qualifiers: Hypertension type: essential hypertension Qualified Code(s): I10 - Essential (primary) hypertension Description of Stay: Lianne Houston, is a 72-year-old white female, with past medical history of paroxysmal atrial fibrillation, hypertension, COPD, Hypothyroidism, who was admitted on 05/02/2018 for TIA like symptoms and headache. Over the last month prior to her admission, the patient had been having left-sided headache constant described as sharp, starting from the back of her ear and going to the left side of her face and head. She says that it would be 8/10 associated with some jaw claudication. She denied any visual changes except for her cataract. She thought initially it was due to her ear and so she went Dr. Harper, the ENT doctor, and she was told that there was nothing wrong with her ear. She saw Yamila Simmons and she ordered for an MRI and referred her to neurology. neurology ordered a cervical Xray . These are scheduled for Saturday. She said on the day of admission , when she was in the kitchen, her tongue started getting hard and she could not express what she was wanted to say. She also had some numbness and tingling of her fingers and so she went to our emergency room. Her head CT scan was showed no acute intracranial process. Her EKG showed normal sinus rate and first-degree AV block with a ventricular rate 60. Her labs were not significant. Per ED physician she was very tender on her temporal artery area. She was then admitted for observation and she was given prednisone. She was then admitted for observation. She is feeling better and her pain she says is 2/10. She is on Xarelto for AFib. Will discharged her today and will do work for [employer] and she will have her MRI and Cervical Xray on Saturday. Will refer her to Dr. De Jesus for possible temporal artery biopsy this coming week and will keep her on Prednisone for now. Procedures Performed: none Results and Findings: Lab Pending Results 05/02/18 17:52: WBC 7.8, RBC 5.14, Hgb 15.7, Hct 47.4 H, MCV 92.2, MCH 30.5, MCHC 33.1, RDW 13.1, Plt Count 203, MPV 11.0, Immature Gran % (Auto) 0.30, Immature Gran # (Auto) 0.02, Neutrophils % 57.7, Lymphocytes % 31.1, Monocytes % 7.6, Eosinophils % 2.8, Basophils % 0.5, Nucleated RBC % 0.0, Neutrophils # 4.5, Lymphocytes # 2.41, Monocytes # 0.6, Eosinophils # 0.2, Absolute Basophils 0.0 05/02/18 17:52: ESR 25 H 05/02/18 17:52: PT 11.8 H, INR (Anticoag Therapy) 1.18 H, PTT ([facility]) 36.9 H 05/02/18 17:52: Sodium 143 H, Plasma Sodium 143 H, Potassium 3.8, Chloride 103, Carbon Dioxide 30.0, Anion Gap 13.8, BUN 16, Creatinine 0.85, Est GFR (Non-Af Amer) 70, BUN/Creatinine Ratio 18.8, Random Glucose 119 H, Calcium 9.9, Calcium Adj for Albumin 9.7, Total Bilirubin 0.5, AST 24, ALT 15 L, Alkaline Phosphatase 132, Troponin I Less than 0.017, Total Protein 8.4 H, Albumin 3.8 05/02/18 17:54: C-Reactive Prot, Quant Less than 0.2 Discharge Location: Home Disposition: Home self-care Condition: Stable Discharge Activity: Activity as tolerated Discharge Diet: Low salt Referrals: Yamila Simmons CNP [Primary Care Provider] - Additional Patient Instructions (free text): Schedule a temporal artery biopsy within the next week in ambulatory surgery. Follow up with PCP next week. Prescriptions (Any new or edited meds): predniSONE [Prednisone] 3 tab PO DAILY #21 tab Complete Home Medications List: Complete Home Medication List: Albuterol Sulfate/Ipratropium [Duoneb 2.5-0.5MG/3ML Soln] 3 ml IH PRN PRN 01/18/18 Dexlansoprazole [Dexilant] 30 mg PO DAILY 01/18/18 Flecainide Acetate 50 mg PO BID 01/18/18 L.acidoph,Paracasei, B.lactis [Probiotic] 1 each PO DAILY 01/18/18 LORazepam [Ativan] 1 mg PO PRN PRN 01/18/18 Levothyroxine Sodium [Synthroid] 75 mcg PO Q48H 01/18/18 Losartan Potassium [Cozaar] 50 mg PO DAILY 01/18/18 Mv-Mn/Folic Acid/Calcium/Vit K [Women's 50 Plus Daily Formula] 1 each PO DAILY 01/18/18 PARoxetine HCL [Paxil] 40 mg PO DAILY 01/18/18 Rivaroxaban [Xarelto] 20 mg PO DAILY 01/18/18 Simvastatin [Zocor] 10 mg PO HS 01/18/18 rOPINIRole HCL [Requip] 0.5 mg PO 1930 01/18/18 Metoprolol Tartrate [Lopressor] 100 mg PO BID #60 tab 01/19/18 Gabapentin 100 mg PO HS 05/02/18 LORazepam [Ativan] 1 mg PO HS 05/02/18 Levothyroxine Sodium [Synthroid] 50 mcg PO Q48H 05/02/18 Zolpidem Tartrate [Ambien] 5 - 10 mg PO HS PRN 05/02/18 predniSONE [Prednisone] 3 tab PO DAILY #21 tab 05/03/18 Amb Orders for Discharge: US Carotid Duplex Comp Bilat * Time Frame: 1 Week, Location: Radiology
[2018-05-03 13:01] VITALS: BP 142/86
[2018-05-03] MEDS ORDERED: rOPINIRole HCL 0.5 MG TABLET PO SCH ×2 (19:30→21:00)
[2018-05-03] MEDS ORDERED: SIMVASTATIN 10 MG TABLET PO SCH ×2 (21:00)
[2018-05-03] MEDS ORDERED: LORazepam 1 MG TABLET PO SCH (21:00)
[2018-05-03] MEDS ORDERED: GABAPENTIN 100 MG CAPSULE PO SCH ×2 (21:00)
[2018-05-04] MEDS ORDERED: LEVOTHYROXINE SODIUM 50 MCG TABLET PO SCH (07:00)
== END 2018-05-03 13:03 | disposition home or self-care (01) ==
LOC: ER 17:25 → MS 17:25
PROVIDERS: ADMIT Internal Medicine; ATTEND Internal Medicine
DX: I48.91 Unspecified atrial fibrillation
CPT/HCPCS: 36415; 70450; 71010; 71045; 80053; 84484; 85025; 85610; 85652; 85730; 86140; 86617; 93005; 94660; 96374; 99285; G0378

== ENCOUNTER 2018-07-29 23:17 | Inpatient (IN) ==
--- NOTE | 2018-07-29 23:30 | ERNOTE ---
Neuro HPI ER Record Presenting Symptoms: impaired speech, confusion Time Seen by Provider: 07/29/18 23:23 Source: family Exam Limitations: clinical condition Immunizations: IMMUNIZATION HX Immunizations Up to Date Yes History of Influenza Vaccine No Hx Pneumococcal Vaccination No Allergies/Adverse Reactions: Allergies Allergy/AdvReac Type Severity Reaction Status Date / Time desvenlafaxine succinate Allergy Mild Headache Verified 07/29/18 23:24 [From Pristiq] morphine Allergy Mild hypotension Verified 07/29/18 23:24 metronidazole [From Flagyl] Allergy Unknown Verified 07/29/18 23:24 citalopram hydrobromide AdvReac Mild Headache Verified 07/29/18 23:24 [From Celexa] cyclobenzaprine HCl AdvReac Mild Headache Verified 07/29/18 23:24 [From Flexeril] desipramine AdvReac Mild Headache Verified 07/29/18 23:24 estradiol [From Vagifem] AdvReac Mild Itching Verified 07/29/18 23:24 estrogens, conjugated AdvReac Mild Itching Verified 07/29/18 23:24 [From Prempro] indomethacin AdvReac Mild Headache Verified 07/29/18 23:24 levofloxacin [From Levaquin] AdvReac Mild RASH Verified 07/29/18 23:24 medroxyprogesterone acetate AdvReac Mild Itching Verified 07/29/18 23:24 [From Prempro] niacin AdvReac Mild RASH Verified 07/29/18 23:24 topiramate [From Topamax] AdvReac Mild Headache Verified 07/29/18 23:24 triazolam [From Halcion] AdvReac Mild Itching Verified 07/29/18 23:24 Home Medications: HOME MEDICATIONS Albuterol Sulfate/Ipratropium [Duoneb 2.5-0.5MG/3ML Soln] 3 ml INHALATION PRN PRN 01/18/18 [Last Taken Unknown] Flecainide Acetate 50 mg PO BID 01/18/18 [Last Taken 01/18/18 08:00] L.acidoph,Paracasei, B.lactis [Probiotic] 1 ea PO DAILY 01/18/18 [Last Taken 01/18/18 08:00] LORazepam [Ativan] 1 mg PO PRN PRN 01/18/18 [Last Taken Unknown] Levothyroxine Sodium [Synthroid] 75 mcg PO Q48H 01/18/18 [Last Taken 05/01/18 07:00] Losartan Potassium [Cozaar] 50 mg PO DAILY 01/18/18 [Last Taken 05/07/18 06:30] Mv-Mn/Folic Acid/Calcium/Vit K [Women's 50 Plus Daily Formula] 1 ea PO DAILY 01/18/18 [Last Taken 01/18/18 08:00] PARoxetine HCL [Paxil] 40 mg PO DAILY 01/18/18 [Last Taken 01/18/18 08:00] Simvastatin [Zocor] 10 mg PO HS 01/18/18 [Last Taken 01/18/18 08:00] rOPINIRole HCL [Requip] 0.5 mg PO 1930 01/18/18 [Last Taken 01/17/18 21:00] LORazepam [Ativan] 1 mg PO HS 05/02/18 [Last Taken Unknown] Levothyroxine Sodium [Synthroid] 50 mcg PO Q48H 05/02/18 [Last Taken 05/02/18 07:00] Zolpidem Tartrate [Ambien] 5 - 10 mg PO HS PRN 05/02/18 [Last Taken Unknown] Acetaminophen [Tylenol] 650 mg PO Q4H PRN #30 tab 05/03/18 [Last Taken Unknown] Metoprolol Tartrate [Lopressor] 50 mg PO BID #60 tab 05/03/18 [Last Taken 05/07/18 06:30] dexlansoprazole 30 mg capsule,biphase delayed release 30 mg PO DAILY 05/05/18 [Last Taken Unknown] rivaroxaban 20 mg tablet 20 mg PO DAILY 05/05/18 [Last Taken Unknown] gabapentin 100 mg capsule 300 mg PO TID cap 06/16/18 [Last Taken Unknown] - History of Present Illness Narrative: states that the patient was more tired yesterday but fairly normal. Today she has continued to get more somnolent and confused and less able to care for herself throughout the day. Onset: gradual onset Severity: moderate - Character of Deficits New weakness: Present: general (diffuse) Additional Deficits: Present: impaired speech, decrease ability to stand Baseline Cognition: Present: alert, oriented x 4 Medical History (Last Reviewed 07/29/18 @ 23:23 by Aleshia Fairbanks) Anxiety Onset Date: Unknown Atrial fibrillation Onset Date: Unknown COPD (chronic obstructive pulmonary disease) Onset Date: Unknown Depression Onset Date: Unknown Fibrocystic breast disease Onset Date: Unknown Fibromyalgia Onset Date: Unknown GERD (gastroesophageal reflux disease) Onset Date: Unknown Hypertension Onset Date: Unknown Hypothyroidism Onset Date: Unknown Insomnia Onset Date: Unknown Lichen sclerosus Onset Date: Unknown Migraines Onset Date: Unknown Obstructive sleep apnea Onset Date: Unknown Restless leg syndrome Onset Date: Unknown Rheumatoid arthritis Onset Date: Unknown Vertigo Onset Date: Unknown Surgical History: Surgical History (Last Reviewed 07/29/18 @ 23:24 by Aleshia Fairbanks) History of temporal artery biopsy Onset Date: 05/07/18 [facility]-no evidence of giant cell arteritis. Mild arteriosclerosis. History of appendectomy Onset Date: Unknown History of cardiac radiofrequency ablation Onset Date: ~03/2011 [facility] History of carpal tunnel release Onset Date: 02/17/162003 right. 02/17/16 [place]-left History of section Onset Date: ~1973 History of hysterectomy Onset Date: ~1984 [facility] History of tubal ligation Onset Date: Unknown Status post trigger finger release Onset Date: 12/16/15 [place]-right history of excision of thrombosed hemorrhoid Onset Date: 06/16/12 [facility] history of removal kidney stone Onset Date: ~01/2017 Family History: Family History (Last Reviewed 07/29/18 @ 23:24 by Aleshia Fairbanks) Father , age 70's-[place] Myocardial infarction Heart disease Diabetes Mother , age 6641-kzoggv-zphfeul type Cancer in the abdomen Son , age 27-rhabdoid sarcoma No problems noted. Social History: Preferred Language Japanese Smoking Status Former smoker Abuse History No History of abuse Psych History Hx of Anxiety,Hx of Depression,Currently on Meds Alcohol Use none Drug Use none (Last Updated 06/16/18 @ 16:34 by Anders De Jesus MD) No Social History Section defined Physical Exam - Physical Exam General Appearance: Present: wd/wn, lethargic Head Exam: Present: normal inspection, no evidence of injury Ears, Nose, Throat: Present: normal ENT inspection Respiratory: Present: no respiratory distress, no accessory muscle use Cardiovascular/Chest: Present: tachycardia, irregularly irregular Gastrointestinal/Abdominal: Present: normal bowel sounds, nondistended, soft Extremity Exam: Present: normal inspection, normal range of motion Neurological Exam: Present: motor weakness - diffuse weakness no lateralizing signs Skin Exam: Present: normal color, warm/dry Lymphatic Exam: Present: no adenopathy Shai Coma Scale - Assess Eye Opening: To Voice Motor: Obeys Commands Verbal: Confused - Total Coma Scale Total: 13 Initial Stroke Assessment - Date/Time of assessment Stroke Scale Date: 07/29/18 Stroke Scale Time: 23:20 - NIH Stroke Scale Level of Consciousness: Stuporus LOC Questions (Year and Age): Answers neither correctly LOC Commands (open/close eyes/fist): Performs both correctly Lateral Gaze Paresis: None Visual Field Loss: No visual loss Facial Palsy: Normal movement Right Arm Motor (10 sec hold): Drift Left Arm Motor (10 sec hold): Drift Right Leg Motor (5 sec hold): Drift Left Leg Motor (5 sec hold): Drift Limb Ataxia (finger/nose heel/pandey): Untestable Sensory Loss (pinprick arms/legs/face): No sensory loss Language Aphasia (description/naming/reading): No aphasia; normal Dysarthria (speech clarity): Slurring, intelligeble Neglect Inattention (visual/tactile/auditory/spatial/person): No neglect Initial Stroke Scale Score:: 9 Progress - Results and Orders Patient's Lab Results:: I have reviewed the patient's lab results. Results and Orders: Laboratory Tests 07/29/18 07/29/18 07/29/18 23:51 23:51 23:51 WBC 9.0 Hgb 12.9 Hct 39.4 Plt Count 190 ESR 27 H PT 16.0 H INR (Anticoag Therapy) 1.65 H PTT ([place]) 36.2 H pCO2 pO2 HCO3 Total CO2 Base Excess ABG pH ABG O2 Sat (Measured) Sodium Potassium Chloride Carbon Dioxide Anion Gap BUN Creatinine Random Glucose Calcium Total Bilirubin AST ALT Troponin I TSH Urine Color Urine Appearance Urine pH Ur Specific [place] Urine Ketones Urine Blood Urine Nitrate Ur Leukocyte Esterase Urine Bacteria Fine Granular Casts 07/29/18 07/29/18 07/29/18 23:51 23:51 23:51 WBC Hgb Hct Plt Count ESR PT INR (Anticoag Therapy) PTT ([place]) pCO2 pO2 HCO3 Total CO2 Base Excess ABG pH ABG O2 Sat (Measured) Sodium 138 Potassium 4.2 Chloride 104 Carbon Dioxide 22.3 L Anion Gap 15.9 H BUN 26 H D Creatinine 1.11 Random Glucose 122 H Calcium 9.1 Total Bilirubin 0.8 AST 27 ALT 22 Troponin I 0.019 TSH 3.026 Urine Color Urine Appearance Urine pH Ur Specific [place] Urine Ketones Urine Blood Urine Nitrate Ur Leukocyte Esterase Urine Bacteria Fine Granular Casts 07/30/18 07/30/18 00:25 00:57 WBC Hgb Hct Plt Count ESR PT INR (Anticoag Therapy) PTT ([facility]) pCO2 34.8 pO2 74.8 L HCO3 23.2 Total CO2 24.2 H Base Excess -0.4 ABG pH 7.44 ABG O2 Sat (Measured) 95.6 Sodium Potassium Chloride Carbon Dioxide Anion Gap BUN Creatinine Random Glucose Calcium Total Bilirubin AST ALT Troponin I TSH Urine Color Yellow Urine Appearance Slightly cloudy Urine pH 5.5 Ur Specific [place] >=1.030 Urine Ketones Negative Urine Blood 5 H Urine Nitrate Negative Ur Leukocyte Esterase Negative Urine Bacteria 1+ H Fine Granular Casts 0-5 H - Vital Signs Patient's Vital Signs:: I have reviewed the patient's vital signs. Vital Signs: Vital Signs 07/29/18 23:19 Temperature 37 C Pulse Rate 109 H Respiratory Rate 24 H Blood Pressure 149/89 O2 Sat by Pulse Oximetry 93 - X-Ray X-Ray #1 X-Ray: chest Interpretation: Interp. by me X-ray Comments: mild pulmonary vascular congestion, no effusion or infiltrate. Cardiomegaly unchanged from 05/02/18 - CT/Ultrasound CT/Ultrasound Narrative: CT head without contrast: No acute intracranial process. - Progress/Reassessment Chief Complaint: Altered Mental Status Progress:: Unchanged Progress Note-Subjective: 07/30/18 01:49 I faxed the EKG's to [facility] and spoke to Dr. Burton about the EKG changes. He then sent the EKG to Dr. Dawkins and his opinion is that there is ischemia but nothing specific and she would not be a candidate for catheterization. They offered to take the patient for MS changes if we wished. 07/30/18 02:[address] Monae he agrees with admit. Departure Clinical Impression: Atrial fibrillation with RVR CHF (congestive heart failure) Qualifiers: Heart failure type: high output Qualified Code(s): I50.83 - High output heart failure - Departure Disposition: Still a patient Condition: Fair
[2018-07-29 23:55] LABS: Hematocrit 39.4 % (37.0-47.0); Hemoglobin 12.9 gm/dL (12.5-16.0); Mean Cell Volume 94.3 fl (78-100); Mean Corpuscular Hemoglobin 30.9 pg (27-31); Mean Corpuscular Hgb Conc 32.7 g/dl (32-36); Mean Platelet Volume 11.3 fl (8-12.5); Neutrophil # 5.4 K/mm3 (1.3-6.0); Neutrophil % 59.8 % (42-75.0); Platelet Count 190 K/mm3 (150-450); Red Blood Count 4.18 M/mm3 (4.2-5.4); Red Cell Distribution Width 13.3 % (11.5-14.0)
[2018-07-30 00:09] LABS: Albumin * 3.2 gm/dl (3.4-5.0); Anion Gap 15.9 mmol/L (6.8-13.8); BUN/Creatinine Ratio 23.4 (9.0-21.6); Bilirubin, Total 0.8 mg/dL (0.0-1.1); Ca. Corrected For Albumin 9.4 mg/dL (8.4-10.2); Calcium * 9.1 mg/dL (7.9-10.9); Carbon Dioxide 22.3 mmol/L (24-32.6); Potassium 4.2 mmol/L (3.4-4.6)
[2018-07-30 00:10] LABS: INR 1.65 INR (0.92-1.08); Partial Thrombolplastin Time 36.2 Seconds (24-32)
[2018-07-30] MEDS ORDERED: NORMAL SALINE 1,000 ML IV ONE (00:31)
[2018-07-30 00:32] LABS: Urine Bilirubin Negative (NEGATIVE); Urine Ketone Negative (NEGATIVE); Urine Nitrite Negative (NEGATIVE); Urine Protein 30 mg/dL (NEGATIVE); Urine Specific Gravity >=1.030 SP.GR. (1.005-1.010); Urine Urobilinogen Normal (NORMAL); Urine pH 5.5 pH (5.0-7.0)
[2018-07-30 00:40] LABS: Urine Amorphous Sediment Few - 1+ (NONE-FEW); Urine Appearance Slightly Cloudy (CLEAR); Urine Bacteria 1+; Urine Blood 5 /ul (NEGATIVE); Urine Color Yellow; Urine Fine Granular Cast 0-5 /LPF; Urine Mucus Few - 1+; Urine RBC None Seen /hpf (0-5); Urine WBC 0-5 /hpf (0-5)
[2018-07-30] MEDS ORDERED: FUROSEMIDE 10 MG/ML VIAL IV ONE ×2 (02:02→13:54)
[2018-07-30] MEDS ORDERED: METOPROLOL TARTRATE 1 MG/ML AMPUL IV ONE (02:19)
[2018-07-30] MEDS ORDERED: METOPROLOL TARTRATE 1 MG/ML AMPUL IV PRN (02:58)
[2018-07-30] MEDS ORDERED: ALBUTEROL SULFATE/IPRATROPIUM 3 ML NEBU IH PRN (10:33)
[2018-07-30] MEDS ORDERED: LORazepam 1 MG TABLET PO PRN (10:33)
[2018-07-30] MEDS ORDERED: ZOLPIDEM TARTRATE 5 MG TABLET PO PRN (10:33)
[2018-07-30] MEDS: LACTOBACILLUS ACIDOPHILUS 100 CAP BTL PO SCH (11:22)
[2018-07-30] MEDS: FLECAINIDE ACETATE 100 MG TABLET PO SCH ×3 (11:23→20:05)
[2018-07-30] MEDS: LOSARTAN POTASSIUM 50 MG TABLET PO SCH (11:24)
[2018-07-30] MEDS: LEVOTHYROXINE SODIUM 50 MCG TABLET PO SCH (11:24)
[2018-07-30] MEDS: METOPROLOL TARTRATE 50 MG TABLET PO SCH ×3 (11:26→20:05)
[2018-07-30] MEDS: PANTOPRAZOLE SODIUM 40 MG TABLET.EC PO SCH (11:27)
[2018-07-30] MEDS: PARoxetine HCL 20 MG TABLET PO SCH (11:27)
[2018-07-30] MEDS: RIVAROXABAN 20 MG TABLET PO SCH (11:28)
[2018-07-30] MEDS ORDERED: GABAPENTIN 300 MG CAPSULE PO SCH (13:00)
[2018-07-30] MEDS: ACETAMINOPHEN 325 MG TABLET PO PRN (13:27)
[2018-07-30] MEDS ORDERED: ALBUTEROL SULFATE 2.5 MG/0.5 ML VIAL.NEB IH PRN (13:55)
[2018-07-30] MEDS: SIMVASTATIN 10 MG TABLET PO SCH ×2 (19:02→20:05)
[2018-07-30] MEDS ORDERED: rOPINIRole HCL 0.5 MG TABLET PO SCH (19:30)
[2018-07-30] MEDS ORDERED: LORazepam 1 MG TABLET PO SCH (21:00)
--- NOTE | 2018-07-30 23:48 | HP ---
Chief Complaint - Chief Complaint Date of Service: 07/30/18 Time of Service: 12:30 Chief Complaint: Confusion History of Present Illness: Lianne is a 73 yo female that presented to the [facility] ER today with somnolence and confusion. Family reported symptoms started today. She has been difficult to arouse at times and other times does not make sense. There have been no recent travel, illnesses, or different activity. She was started on gabapentin 3 months ago and lamotrigine 2 months ago for control of headaches. She had also recent decreased her dose of metoprolol from 100mg to 50mg. She had bloodwork, urine, EKG, head ct, and chest xray. Her EKG showed atrial fibrillation with rapid ventricular response and some non-specific ST changes. This was reviewed by cardiology at [facility], who felt she did not meet criteria for cardiac cath. Her troponin was normal. She was given metoprolol IV for rate control. She reports history of atrial fibrillation in the past and has previously had ablation for this. Denies fever or chills. 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 Anxiety Onset Date: Unknown Atrial fibrillation Onset Date: Unknown COPD (chronic obstructive pulmonary disease) Onset Date: Unknown Depression Onset Date: Unknown Fibrocystic breast disease Onset Date: Unknown Fibromyalgia Onset Date: Unknown GERD (gastroesophageal reflux disease) Onset Date: Unknown Hypertension Onset Date: Unknown Hypothyroidism Onset Date: Unknown Insomnia Onset Date: Unknown Lichen sclerosus Onset Date: Unknown Migraines Onset Date: Unknown Obstructive sleep apnea Onset Date: Unknown Restless leg syndrome Onset Date: Unknown Rheumatoid arthritis Onset Date: Unknown Vertigo Onset Date: Unknown Altered mental status Onset Date: 07/30/18 Hospital admission Onset Date: 07/30/18 Admitted to [facility] on 07/30/2018; altered mental status, atrial fibrillation with RVR, and ataxia. Discharged home on 08/01/2018. Surgical History: Surgical History (Updated 08/13/18 @ 11:53 by Ki Monae DO) History of appendectomy Onset Date: Unknown History of biopsy Onset Date: 07/22/18 Dr. Cleveland Turner, [facility]. Punch biopsy of left pretibial region. 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 History of cardiac radiofrequency ablation Onset Date: ~03/2011 [facility] History of carpal tunnel release Onset Date: 02/17/162003 right. 02/17/16 [place]-left History of section Onset Date: ~1973 History of hemorrhoidectomy Onset Date: 06/16/12 Dr. Marty Shelton, [facility]. Thrombosed hemorrhoid. History of hysterectomy Onset Date: ~1984 [facility] History of nephrolithotomy with removal of calculi Onset Date: 01/2017 History of temporal artery biopsy Onset Date: 05/07/18 [facility]-no evidence of giant cell arteritis. Mild arteriosclerosis. History of tubal ligation Onset Date: Unknown Status post trigger finger release Onset Date: 12/16/15 [place]-right Family History: Family History (Updated 05/05/18 @ 14:20 by Jackie Baez RN) Father , age 70's-[place] Myocardial infarction Heart disease Diabetes Mother , age 6653-klejia-mvdykrt type Cancer in the abdomen Son , age 27-rhabdoid sarcoma No problems noted. Social History: Patient Lives/Resources With Spouse Utilized Preferred Language Frisian Do you have any methodist or Yes: presby cultural preference? Smoking Status Never smoker Have you smoked in the past 12 No months Abuse History No History of abuse Psych History Hx of Anxiety,Hx of Depression,Currently on Meds Alcohol Use none Drug Use none (Last Updated 06/16/18 @ 16:34 by Anders De Jesus MD) No Social History Section defined Review Of Systems (GEN) - Review of Systems Generalized/Overall Review: Present: Weakness, Fatigue. Absent: Chills, Fever EENTM: Present: No Symptoms Reported Respiratory: Present: Shortness of Breath. Absent: Cough Cardiac: Present: Palpitations. Absent: Chest Pain, Edema, Syncope Abdominal: Present: Nausea. Absent: Vomiting, Abdominal Pain Genitourinary: Present: No Symptoms Reported Musculoskeletal: Present: No Symptoms Reported Neurological: Present: No Symptoms Reported Skin: Present: No Symptoms Reported Immunizations: IMMUNIZATION HX Immunizations Up to Date Yes History of Influenza Vaccine No Hx Pneumococcal Vaccination No Allergies/Adverse Reactions: Allergies Allergy/AdvReac Type Severity Reaction Status Date / Time desvenlafaxine succinate Allergy Mild Headache Verified 07/29/18 23:24 [From Pristiq] morphine Allergy Mild hypotension Verified 07/29/18 23:24 metronidazole [From Flagyl] Allergy Unknown Verified 07/29/18 23:24 citalopram hydrobromide AdvReac Mild Headache Verified 07/29/18 23:24 [From Celexa] cyclobenzaprine HCl AdvReac Mild Headache Verified 07/29/18 23:24 [From Flexeril] desipramine AdvReac Mild Headache Verified 07/29/18 23:24 estradiol [From Vagifem] AdvReac Mild Itching Verified 07/29/18 23:24 estrogens, conjugated AdvReac Mild Itching Verified 07/29/18 23:24 [From Prempro] indomethacin AdvReac Mild Headache Verified 07/29/18 23:24 levofloxacin [From Levaquin] AdvReac Mild RASH Verified 07/29/18 23:24 medroxyprogesterone acetate AdvReac Mild Itching Verified 07/29/18 23:24 [From Prempro] niacin AdvReac Mild RASH Verified 07/29/18 23:24 topiramate [From Topamax] AdvReac Mild Headache Verified 07/29/18 23:24 triazolam [From Halcion] AdvReac Mild Itching Verified 07/29/18 23:24 Home Medications: HOME MEDICATIONS Albuterol Sulfate/Ipratropium [Duoneb 2.5-0.5MG/3ML Soln] 3 ml INHALATION PRN PRN 01/18/18 [Last Taken Unknown] Flecainide Acetate 50 mg PO BID 01/18/18 [Last Taken 01/18/18 08:00] L.acidoph,Paracasei, B.lactis [Probiotic] 1 ea PO DAILY 01/18/18 [Last Taken 01/18/18 08:00] LORazepam [Ativan] 1 mg PO PRN PRN 01/18/18 [Last Taken Unknown] Levothyroxine Sodium [Synthroid] 75 mcg PO Q48H 01/18/18 [Last Taken 05/01/18 07:00] Losartan Potassium [Cozaar] 50 mg PO DAILY 01/18/18 [Last Taken 05/07/18 06:30] Mv-Mn/Folic Acid/Calcium/Vit K [Women's 50 Plus Daily Formula] 1 ea PO DAILY 01/18/18 [Last Taken 01/18/18 08:00] PARoxetine HCL [Paxil] 40 mg PO DAILY 01/18/18 [Last Taken 01/18/18 08:00] Simvastatin [Zocor] 10 mg PO HS 01/18/18 [Last Taken 01/18/18 08:00] rOPINIRole HCL [Requip] 0.5 mg PO 1930 01/18/18 [Last Taken 01/17/18 21:00] LORazepam [Ativan] 1 mg PO HS 05/02/18 [Last Taken Unknown] Levothyroxine Sodium [Synthroid] 50 mcg PO Q48H 05/02/18 [Last Taken 05/02/18 07:00] Zolpidem Tartrate [Ambien] 5 - 10 mg PO HS PRN 05/02/18 [Last Taken Unknown] Acetaminophen [Tylenol] 650 mg PO Q4H PRN #30 tab 05/03/18 [Last Taken Unknown] dexlansoprazole 30 mg capsule,biphase delayed release 30 mg PO DAILY 05/05/18 [Last Taken Unknown] rivaroxaban 20 mg tablet 20 mg PO DAILY 05/05/18 [Last Taken Unknown] Metoprolol Tartrate [Lopressor] 100 mg PO BID #60 tab 08/01/18 [Last Taken Unknown] furosemide 20 mg tablet 20 mg PO DAILY PRN #30 tab 08/07/18 [Last Taken Unknown] Exam - Exam Vital Signs: Vital Signs - Last Taken Temp 36.8 C 07/30/18 19:40 Pulse 105 H 07/30/18 23:38 Resp 20 07/30/18 23:38 BP 126/72 07/30/18 19:40 Pulse Ox 65 L 07/30/18 23:38 Constitutional: Present: Alert, Other - confused, nonsensical speech, no slurred speech ENT Exam: Present: normal ENT inspection Eye Exam: bilateral eye: normal inspection Respiratory: Present: lungs clear, normal breath sounds, no respiratory distress Cardiovascular/Chest: Present: tachycardia, irregularly irregular Abdomen: Present: Normal bowel sounds, soft, nontender, nondistended Skin Exam: Present: normal color, warm/dry, no cyanosis Diagnostic Studies: Abnormal Lab Results 07/29/18 07/29/18 07/29/18 Range/Units 23:51 23:51 23:51 RBC 4.18 L (4.2-5.4) M/mm3 Monocytes % 9.4 H (0.0-9) % ESR 27 H (0-15) mm/hr PT 16.0 H (9.1-10.7) Seconds INR (Anticoag Therapy) 1.65 H (0.92-1.08) INR PTT ([facility]) 36.2 H (24-32) Seconds D-Dimer (0.19-0.49) ug/mL pO2 (83.0-108.0) mmHg Total CO2 (19.0-24.0) mmol/L Carbon Dioxide (24-32.6) mmol/L Anion Gap (6.8-13.8) mmol/L BUN (3-23) mg/dL Est GFR (Non-Af Amer) (60-130) mL/min BUN/Creatinine Ratio (9.0-21.6) Random Glucose (70-110) mg/dL B-Natriuretic Peptide (5-325) pg/mL Albumin (3.4-5.0) gm/dl Urine Protein (NEGATIVE) mg/dL Urine Blood (NEGATIVE) /ul Urine Bacteria (NONE) Fine Granular Casts (NONE) /LPF Urine Mucus (NONE) 07/29/18 07/29/18 07/29/18 Range/Units 23:51 23:51 23:51 RBC (4.2-5.4) M/mm3 Monocytes % (0.0-9) % ESR (0-15) mm/hr PT (9.1-10.7) Seconds INR (Anticoag Therapy) (0.92-1.08) INR PTT ([facility]) (24-32) Seconds D-Dimer 0.82 H (0.19-0.49) ug/mL pO2 (83.0-108.0) mmHg Total CO2 (19.0-24.0) mmol/L Carbon Dioxide 22.3 L (24-32.6) mmol/L Anion Gap 15.9 H (6.8-13.8) mmol/L BUN 26 H D (3-23) mg/dL Est GFR (Non-Af Amer) 52 L D (60-130) mL/min BUN/Creatinine Ratio 23.4 H (9.0-21.6) Random Glucose 122 H (70-110) mg/dL B-Natriuretic Peptide 8118 H (5-325) pg/mL Albumin 3.2 L (3.4-5.0) gm/dl Urine Protein (NEGATIVE) mg/dL Urine Blood (NEGATIVE) /ul Urine Bacteria (NONE) Fine Granular Casts (NONE) /LPF Urine Mucus (NONE) 07/30/18 07/30/18 Range/Units 00:25 00:57 RBC (4.2-5.4) M/mm3 Monocytes % (0.0-9) % ESR (0-15) mm/hr PT (9.1-10.7) Seconds INR (Anticoag Therapy) (0.92-1.08) INR PTT ([facility]) (24-32) Seconds D-Dimer (0.19-0.49) ug/mL pO2 74.8 L (83.0-108.0) mmHg Total CO2 24.2 H (19.0-24.0) mmol/L Carbon Dioxide (24-32.6) mmol/L Anion Gap (6.8-13.8) mmol/L BUN (3-23) mg/dL Est GFR (Non-Af Amer) (60-130) mL/min BUN/Creatinine Ratio (9.0-21.6) Random Glucose (70-110) mg/dL B-Natriuretic Peptide (5-325) pg/mL Albumin (3.4-5.0) gm/dl Urine Protein 30 H (NEGATIVE) mg/dL Urine Blood 5 H (NEGATIVE) /ul Urine Bacteria 1+ H (NONE) Fine Granular Casts 0-5 H (NONE) /LPF Urine Mucus Few - 1+ H (NONE) Laboratory Results WBC 9.0 K/mm3 (4.0-10.5) 07/29/18 23:51 RBC 4.18 M/mm3 (4.2-5.4) L 07/29/18 23:51 Hgb 12.9 gm/dL (12.5-16.0) 07/29/18 23:51 Hct 39.4 % (37.0-47.0) 07/29/18 23:51 MCV 94.3 fl (78-100) 07/29/18 23:51 MCH 30.9 pg (27-31) 07/29/18 23:51 MCHC 32.7 g/dl (32-36) 07/29/18 23:51 RDW 13.3 % (11.5-14.0) 07/29/18 23:51 Plt Count 190 K/mm3 (150-450) 07/29/18 23:51 MPV 11.3 fl (8-12.5) 07/29/18 23:51 Immature Gran % (Auto) 0.30 % (0.001-0.429) 07/29/18 23:51 Immature Gran # (Auto) 0.03 K/mm3 (0.000-0.0310) 07/29/18 23:51 59.8 % (42-75.0) 07/29/18 23:51 27.7 % (20-51) 07/29/18 23:51 9.4 % (0.0-9) H 07/29/18 23:51 2.4 % (0.0-3.0) 07/29/18 23:51 0.4 % (0.0-1.0) 07/29/18 23:51 Nucleated RBC % 0.0 k/mm3 (0-1) 07/29/18 23:51 5.4 K/mm3 (1.3-6.0) 07/29/18 23:51 2.49 k/mm3 (1.5-3.5) 07/29/18 23:51 0.9 k/mm3 (0.0-1.0) 07/29/18 23:51 0.2 k/mm3 (0.0-0.7) 07/29/18 23:51 Absolute Basophils 0.0 k/mm3 (0.0-0.1) 07/29/18 23:51 ESR 27 mm/hr (0-15) H 07/29/18 23:51 PT 16.0 Seconds (9.1-10.7) H 07/29/18 23:51 INR (Anticoag Therapy) 1.65 INR (0.92-1.08) H 07/29/18 23:51 PTT ([facility]) 36.2 Seconds (24-32) H 07/29/18 23:51 0.82 ug/mL (0.19-0.49) H 07/29/18 23:51 pCO2 34.8 mmHg (32.0-45.0) 07/30/18 00:57 pO2 74.8 mmHg (83.0-108.0) L 07/30/18 00:57 HCO3 23.2 mmol/L (21.0-28.0) 07/30/18 00:57 Total CO2 24.2 mmol/L (19.0-24.0) H 07/30/18 00:57 Base Excess -0.4 mmol/L (-2.0-3.0) 07/30/18 00:57 ABG pH 7.44 (7.35-7.45) 07/30/18 00:57 ABG O2 Sat (Measured) 95.6 % (94.0-98.0) 07/30/18 00:57 Sodium 138 mmol/L (132-142) 07/29/18 23:51 138 mmol/L (130-142) 07/29/18 23:51 Potassium 4.2 mmol/L (3.4-4.6) 07/29/18 23:51 Chloride 104 mmol/L (97-106) 07/29/18 23:51 Carbon Dioxide 22.3 mmol/L (24-32.6) L 07/29/18 23:51 15.9 mmol/L (6.8-13.8) H 07/29/18 23:51 BUN 26 mg/dL (3-23) H D 07/29/18 23:51 1.11 mg/dL (0.4-1.4) 07/29/18 23:51 Est GFR (Non-Af Amer) 52 mL/min (60-130) L D 07/29/18 23:51 23.4 (9.0-21.6) H 07/29/18 23:51 122 mg/dL (70-110) H 07/29/18 23:51 Calcium 9.1 mg/dL (7.9-10.9) 07/29/18 23:51 Calcium Adj for Albumin 9.4 mg/dL (8.4-10.2) 07/29/18 23:51 0.8 mg/dL (0.0-1.1) 07/29/18 23:51 AST 27 U/L (0-48) 07/29/18 23:51 ALT 22 U/L (19-67) 07/29/18 23:51 151 U/L (50-170) 07/29/18 23:51 0.019 ng/mL (0.00-0.10) 07/29/18 23:51 B-Natriuretic Peptide 8118 pg/mL (5-325) H 07/29/18 23:51 7.0 gm/dL (6.2-8.2) 07/29/18 23:51 3.2 gm/dl (3.4-5.0) L 07/29/18 23:51 TSH 3.026 uIU/mL (0.358-3.74) 07/29/18 23:51 Yellow 07/30/18 00:25 Slightly cloudy (CLEAR) 07/30/18 00:25 5.5 pH (5.0-7.0) 07/30/18 00:25 Ur Specific [place] >=1.030 SP.GR. (1.005-1.010) 07/30/18 00:25 30 mg/dL (NEGATIVE) H 07/30/18 00:25 Negative mg/dL (NEGATIVE) 07/30/18 00:25 Negative mg/dL (NEGATIVE) 07/30/18 00:25 5 /ul (NEGATIVE) H 07/30/18 00:25 Negative (NEGATIVE) 07/30/18 00:25 Negative mg/dl (NEGATIVE) 07/30/18 00:25 Prot Sulfosalicylic Acd 1+ mg/dL (0) 07/30/18 00:25 Normal EU/dl (NORMAL) 07/30/18 00:25 Ur Leukocyte Esterase Negative /ul (NEGATIVE) 07/30/18 00:25 None seen /hpf (0-5) 07/30/18 00:25 0-5 /hpf (0-5) 07/30/18 00:25 Ur Epithelial Cells None seen /hpf (0-5) 07/30/18 00:25 Amorphous Sediment Few - 1+ (NONE-FEW) 07/30/18 00:25 1+ (NONE) H 07/30/18 00:25 Fine Granular Casts 0-5 /LPF (NONE) H 07/30/18 00:25 Few - 1+ (NONE) H 07/30/18 00:25 Culture to follow 07/30/18 00:25 Assessment/Plan - Narrative Narrative: Lianne is a 73 yo female with altered mental status. Differential includes Stroke vs Afib with RVR vs UTI vs side effect of gabapentin/paxil/lamotrigine. Will hold paxil and lamotrigine. Will give IV metoprolol for heart rate and monitor rate. Will give fluids. May need to increase metoprolol oral back to 100mg (previous dose). Will need Brain MRI to evaluate for stroke. Will await urine culture. Expect >2 midnights to make adjustments and monitor response, will admit to acute inpatient status. - Assessment/Plan (1) Altered mental status Problem: Acute (2) Atrial fibrillation with RVR Problem: Acute
[2018-07-31] MEDS ORDERED: DILTIAZEM HCL 5 MG/ML VIAL IV ONE (07:34)
[2018-07-31] MEDS ORDERED: ONDANSETRON HCL/PF 2 MG/ML VIAL IV PRN (07:36)
[2018-07-31] MEDS ORDERED: FUROSEMIDE 10 MG/ML VIAL IV SCH (07:45)
[2018-07-31 08:54] LABS: Hemoglobin 14.5 gm/dL (12.5-16.0); Mean Cell Volume 93.8 fl (78-100); Mean Corpuscular Hemoglobin 30.9 pg (27-31); Mean Platelet Volume 11.5 fl (8-12.5); NRBC# 0.1 k/mm3 (0-1); Neutrophil # 11.2 K/mm3 (1.3-6.0); Neutrophil % 81.3 % (42-75.0); Platelet Count 222 K/mm3 (150-450); Red Blood Count 4.69 M/mm3 (4.2-5.4); Red Cell Distribution Width 13.6 % (11.5-14.0); White Blood Count 13.8 K/mm3 (4.0-10.5)
[2018-07-31 09:11] LABS: ALT 47 U/L (19-67); AST 53 U/L (0-48); Albumin * 3.5 gm/dl (3.4-5.0); Alkaline Phosphatase * 162 U/L (50-170); Anion Gap 15.3 mmol/L (6.8-13.8); BUN/Creatinine Ratio 21.2 (9.0-21.6); Bilirubin, Total 1.8 mg/dL (0.0-1.1); Blood Urea Nitrogen 24 mg/dL (3-23); Ca. Corrected For Albumin 9.2 mg/dL (8.4-10.2); Calcium * 9.1 mg/dL (7.9-10.9); Carbon Dioxide 25.3 mmol/L (24-32.6); Chloride 100 mmol/L (97-106); Glucose * 145 mg/dL (70-110); Potassium 3.6 mmol/L (3.4-4.6); Sodium 137 mmol/L (132-142); Total Protein 7.7 gm/dL (6.2-8.2); Troponin I Less than 0.017 ng/mL (0.00-0.10)
[2018-07-31] MEDS: LACTOBACILLUS ACIDOPHILUS 100 CAP BTL PO SCH (10:01)
[2018-07-31] MEDS: LOSARTAN POTASSIUM 50 MG TABLET PO SCH (10:01)
[2018-07-31] MEDS: METOPROLOL TARTRATE 100 MG TABLET PO SCH ×2 (10:03→21:33)
[2018-07-31] MEDS: PARoxetine HCL 20 MG TABLET PO SCH (10:04)
[2018-07-31] MEDS: PANTOPRAZOLE SODIUM 40 MG TABLET.EC PO SCH (10:05)
[2018-07-31] MEDS: FLECAINIDE ACETATE 100 MG TABLET PO SCH ×2 (10:06→21:34)
[2018-07-31] MEDS: RIVAROXABAN 20 MG TABLET PO SCH (10:06)
[2018-07-31] MEDS: SIMVASTATIN 10 MG TABLET PO SCH (21:34)
--- NOTE | 2018-07-31 23:39 | PN ---
Subjective - Date and Time Seen Date: 07/31/18 Time: 13:00 Subjective Narrative: Feeling a little better. Heart rate remains on the faster than normal. Feels short of breath with activity. Confusion is better. Objective - Vitals Vitals: Last Vital Signs Temp 36.4 C 07/31/18 19:00 Pulse 113 H 07/31/18 21:33 Resp 19 07/31/18 19:00 BP 130/66 07/31/18 21:33 Pulse Ox 100 07/31/18 19:00 - Abnormal Lab Findings Abnormal Lab Findings: Abnormal Lab Results 07/31/18 07/31/18 Range/Units 08:40 08:40 WBC 13.8 H D (4.0-10.5) K/mm3 Immature Gran % (Auto) 0.50 H (0.001-0.429) % Immature Gran # (Auto) 0.07 H (0.000-0.0310) K/mm3 Neutrophils % 81.3 H (42-75.0) % Lymphocytes % 10.7 L (20-51) % Neutrophils # 11.2 H (1.3-6.0) K/mm3 Lymphocytes # 1.48 L (1.5-3.5) k/mm3 Anion Gap 15.3 H (6.8-13.8) mmol/L BUN 24 H (3-23) mg/dL Est GFR (Non-Af Amer) 50 L (60-130) mL/min Random Glucose 145 H (70-110) mg/dL Total Bilirubin 1.8 H (0.0-1.1) mg/dL AST 53 H (0-48) U/L - Exam Constitutional: Present: Alert, Oriented x3, Cooperative ENT Exam: Present: hearing grossly normal Respiratory: Present: rales - bilateral base Cardiovascular/Chest: Present: tachycardia, irregularly irregular Abdomen: Present: Normal bowel sounds, soft, nontender, nondistended Skin Exam: Present: normal color, warm/dry, no cyanosis Appearance: Present: appropriate appearance, appropriate insight Eye contact: Present: cooperative, good eye contact, normal speech Thoughts: Present: normal thought pattern, no apparent hallucination. Absent: delusions Assessment/Plan Plan Narrative: Confusion is improved. Urine culture not growing bacteria. Brain MRI shows no acute changes. Suspect that lamotrigine may have built up and caused confusion, send out lab for lamotrigine level pending. Currently holding lamotrigine and gabapentin and seeming to be doing better. Recently metoprolol was decreased from 100mg to 50mg, will increase back to 100mg due to atrial fibrillation with rvr. - Problems/Diagnosis (1) Altered mental status Problem: Acute (2) Atrial fibrillation with RVR Problem: Acute
[2018-08-01] MEDS: ACETAMINOPHEN 325 MG TABLET PO PRN (02:00)
[2018-08-01] MEDS: LOSARTAN POTASSIUM 50 MG TABLET PO SCH (08:14)
[2018-08-01] MEDS: LACTOBACILLUS ACIDOPHILUS 100 CAP BTL PO SCH (08:14)
[2018-08-01] MEDS: PANTOPRAZOLE SODIUM 40 MG TABLET.EC PO SCH (08:14)
[2018-08-01] MEDS: PARoxetine HCL 20 MG TABLET PO SCH (08:14)
[2018-08-01] MEDS: METOPROLOL TARTRATE 100 MG TABLET PO SCH (08:14)
[2018-08-01] MEDS: FLECAINIDE ACETATE 100 MG TABLET PO SCH (08:15)
[2018-08-01] MEDS: RIVAROXABAN 20 MG TABLET PO SCH (08:15)
[2018-08-01] MEDS: LEVOTHYROXINE SODIUM 50 MCG TABLET PO SCH (10:11)
--- NOTE | 2018-08-01 12:02 | DS ---
(1) Altered mental status Problem: Acute (2) Atrial fibrillation with RVR Problem: Acute (3) Ataxia Problem: Acute Description of Stay: Lianne is a 73 yo female that was admitted for altered mental status, difficulty speaking, and ataxia. She also had atrial fibrillation with rapid ventricular response. She had bloodwork and imaging that showed no evidence of infection or stroke. Per history she had been started on gabapentin in April and Lamictal was started in May, both for ice pick headaches. These were both held and over time her symptoms resolved. She had also had her metoprolol dose recently decreased from 100mg to 50mg BID. This was increased back to 100mg BID due to tachycardia. With this change her heart rate was better controlled and remained under 115bpm and her blood pressure was normal. Her neurological symptoms improved and she felt able for discharge. I will continue to keep her off lamictal and gabapentin, although I suspect the lamictal is the more likely culprit. Procedures Performed: none Results and Findings: Lab Pending Results 07/29/18 23:51: WBC 9.0, RBC 4.18 L, Hgb 12.9, Hct 39.4, MCV 94.3, MCH 30.9, MCHC 32.7, RDW 13.3, Plt Count 190, MPV 11.3, Immature Gran % (Auto) 0.30, Immature Gran # (Auto) 0.03, Neutrophils % 59.8, Lymphocytes % 27.7, Monocytes % 9.4 H, Eosinophils % 2.4, Basophils % 0.4, Nucleated RBC % 0.0, Neutrophils # 5.4, Lymphocytes # 2.49, Monocytes # 0.9, Eosinophils # 0.2, Absolute Basophils 0.0 07/29/18 23:51: ESR 27 H 07/29/18 23:51: PT 16.0 H, INR (Anticoag Therapy) 1.65 H, PTT ([place]) 36.2 H 07/29/18 23:51: Sodium 138, Plasma Sodium 138, Potassium 4.2, Chloride 104, Carbon Dioxide 22.3 L, Anion Gap 15.9 H, BUN 26 H D, Creatinine 1.11, Est GFR (Non-Af Amer) 52 L D, BUN/Creatinine Ratio 23.4 H, Random Glucose 122 H, Calcium 9.1, Calcium Adj for Albumin 9.4, Total Bilirubin 0.8, AST 27, ALT 22, Alkaline Phosphatase 151, Total Protein 7.0, Albumin 3.2 L 07/29/18 23:51: Troponin I 0.019 07/29/18 23:51: TSH 3.026 07/29/18 23:51: B-Natriuretic Peptide 8118 H 07/29/18 23:51: D-Dimer 0.82 H 07/30/18 00:25: Urine Color Yellow, Urine Appearance Slightly cloudy, Urine pH 5.5, Ur Specific [place] >=1.030, Urine Protein 30 H, Urine Glucose (UA) Negative, Urine Ketones Negative, Urine Blood 5 H, Urine Nitrate Negative, Urine Bilirubin Negative, Prot Sulfosalicylic Acd 1+, Urine Urobilinogen Normal, Ur Leukocyte Esterase Negative, Urine RBC None seen, Urine WBC 0-5, Ur Epithelial Cells None seen, Amorphous Sediment Few - 1+, Urine Bacteria 1+ H, Fine Granular Casts 0-5 H, Urine Mucus Few - 1+ H, Urine Culture Comments Culture to follow 07/30/18 00:57: pCO2 34.8, pO2 74.8 L, HCO3 23.2, Total CO2 24.2 H, Base Excess -0.4, ABG pH 7.44, ABG O2 Sat (Measured) 95.6 07/31/18 08:40: WBC 13.8 H D, RBC 4.69, Hgb 14.5, Hct 44.0, MCV 93.8, MCH 30.9, MCHC 33.0, RDW 13.6, Plt Count 222, MPV 11.5, Immature Gran % (Auto) 0.50 H, Immature Gran # (Auto) 0.07 H, Neutrophils % 81.3 H, Lymphocytes % 10.7 L, Monocytes % 6.5, Eosinophils % 0.7, Basophils % 0.3, Nucleated RBC % 0.1, Neutrophils # 11.2 H, Lymphocytes # 1.48 L, Monocytes # 0.9, Eosinophils # 0.1, Absolute Basophils 0.0 07/31/18 08:40: Sodium 137, Plasma Sodium 138, Potassium 3.6, Chloride 100, Carbon Dioxide 25.3, Anion Gap 15.3 H, BUN 24 H, Creatinine 1.13, Est GFR (Non- Af Amer) 50 L, BUN/Creatinine Ratio 21.2, Random Glucose 145 H, Calcium 9.1, Calcium Adj for Albumin 9.2, Total Bilirubin 1.8 H, AST 53 H, ALT 47, Alkaline Phosphatase 162, Troponin I Less than 0.017, Total Protein 7.7, Albumin 3.5 Discharge Location: Home Disposition: Home self-care Condition: Fair Discharge Activity: Activity as tolerated Discharge Diet: General/regular food Referrals: Ki Monae DO [Staff Physician] - One Week Problem Oriented Discharge Instructions to Patient/Family: Atrial Fibrillation, [id number] Additional Patient Instructions (free text): -Please make TCM appointment unless mcc discharge. Thank you! Desiree @ ext:[phone]. Stop Gabapentin and Lamotrigine. Metoprolol was increased back to 100mg BID. Prescriptions (Any new or edited meds): Metoprolol Tartrate [Lopressor] 100 mg PO BID #60 tab Complete Home Medications List: Complete Home Medication List: Albuterol Sulfate/Ipratropium [Duoneb 2.5-0.5MG/3ML Soln] 3 ml INHALATION PRN PRN 01/18/18 Flecainide Acetate 50 mg PO BID 01/18/18 L.acidoph,Paracasei, B.lactis [Probiotic] 1 ea PO DAILY 01/18/18 LORazepam [Ativan] 1 mg PO PRN PRN 01/18/18 Levothyroxine Sodium [Synthroid] 75 mcg PO Q48H 01/18/18 Losartan Potassium [Cozaar] 50 mg PO DAILY 01/18/18 Mv-Mn/Folic Acid/Calcium/Vit K [Women's 50 Plus Daily Formula] 1 ea PO DAILY 01/18/18 PARoxetine HCL [Paxil] 40 mg PO DAILY 01/18/18 Simvastatin [Zocor] 10 mg PO HS 01/18/18 rOPINIRole HCL [Requip] 0.5 mg PO 1930 01/18/18 LORazepam [Ativan] 1 mg PO HS 05/02/18 Levothyroxine Sodium [Synthroid] 50 mcg PO Q48H 05/02/18 Zolpidem Tartrate [Ambien] 5 - 10 mg PO HS PRN 05/02/18 Acetaminophen [Tylenol] 650 mg PO Q4H PRN #30 tab 05/03/18 dexlansoprazole 30 mg capsule,biphase delayed release 30 mg PO DAILY 05/05/18 rivaroxaban 20 mg tablet 20 mg PO DAILY 05/05/18 Metoprolol Tartrate [Lopressor] 100 mg PO BID #60 tab 08/01/18
[2018-08-01 13:50] VITALS: BP 127/71
== END 2018-08-01 14:02 | disposition home or self-care (01) | DRG 948 ==
LOC: ER 23:17 → MS 07-30 02:44
PROVIDERS: ADMIT Family Medicine; ATTEND Family Medicine
DX: Z87.891 Personal history of nicotine dependence; R27.8 Other lack of coordination; M06.9 Rheumatoid arthritis, unspecified; J44.9 Chronic obstructive pulmonary disease, unspecified; R53.1 Weakness; E03.9 Hypothyroidism, unspecified; M79.7 Fibromyalgia; I50.83 High output heart failure; R41.82 Altered mental status, unspecified; K21.9 Gastro-esophageal reflux disease without esophagitis; Z79.01 Long term (current) use of anticoagulants; R29.709 NIHSS score 9; I48.2 Chronic atrial fibrillation; L90.0 Lichen sclerosus et atrophicus
CPT/HCPCS: 36415; 36600; 70450; 70553; 71010; 71045; 80053; 80299; 81001; 82803; 83519; 83880; 84443; 84484; 85025; 85379; 85610; 85652; 85730; 87086; 92507; 92523; 92526; 93005; 94640; 94660; 94664; 96361; 96374; 96375; 97110; 97116; 97162; 97166; 97530; 99285; A9576; J2405

== ENCOUNTER 2020-03-31 09:22 | Observation (INO) ==
[2020-03-31 10:03] LABS: Hematocrit 39.9 % (37.0-47.0); Hemoglobin 12.5 gm/dL (12.5-16.0); Mean Cell Volume 93.2 fl (78-100); Mean Corpuscular Hemoglobin 29.2 pg (27-31); Mean Corpuscular Hgb Conc 31.3 g/dl (32-36); Mean Platelet Volume 11.4 fl (8-12.5); Neutrophil # 5.4 K/mm3 (1.3-6.0); Neutrophil % 73.5 % (42-75.0); Platelet Count 196 K/mm3 (150-450); Red Blood Count 4.28 M/mm3 (4.2-5.4); Red Cell Distribution Width 14.8 % (11.5-14.0); White Blood Count 7.4 K/mm3 (4.0-10.5)
[2020-03-31] MEDS ORDERED: DILTIAZEM HCL 5 MG/ML VIAL IV ONE ×2 (10:10→10:30)
[2020-03-31 10:19] LABS: Albumin * 3.3 gm/dl (3.4-5.0); Anion Gap 14.2 mmol/L (6.8-13.8); BUN/Creatinine Ratio 22.8 (9.0-21.6); Bilirubin, Total 0.4 mg/dL (0.0-1.1); Ca. Corrected For Albumin 9.3 mg/dL (8.4-10.2); Calcium * 9.1 mg/dL (7.9-10.9); Carbon Dioxide 23.4 mmol/L (24-32.6); Potassium 3.6 mmol/L (3.4-4.6); Troponin I 0.017 ng/mL (0.00-0.10)
[2020-03-31] MEDS ORDERED: FUROSEMIDE 10 MG/ML VIAL IV ONE (10:52)
[2020-03-31] MEDS: DILTIAZEM HCL 125 MG in DEXTROSE 5 % IN WATER 100 ML IV PRN ×4 (10:53→20:39)
--- NOTE | 2020-03-31 13:17 | ERNOTE ---
Chest Pain/Cardiac HPI Date of Service: 03/31/20 Chief Complaint: Chest Pain Time Seen by Provider: 03/31/20 10:00 Source: patient Exam Limitations: no limitations Immunizations: IMMUNIZATION HX Immunizations Up to Date Yes History of Influenza Vaccine Yes Hx Pneumococcal Vaccination Yes Allergies/Adverse Reactions: Allergies desvenlafaxine succinate [From Pristiq] Allergy (Mild, Verified 03/31/20 09:30) Headache morphine Allergy (Mild, Verified 03/31/20 09:30) hypotension metronidazole [From Flagyl] Allergy (Unknown, Verified 03/31/20 09:30) unsure citalopram hydrobromide [From Celexa] Adverse Reaction (Mild, Verified 03/31/20 09:30) Headache cyclobenzaprine HCl [From Flexeril] Adverse Reaction (Mild, Verified 03/31/20 09:30) Headache desipramine Adverse Reaction (Mild, Verified 03/31/20 09:30) Headache estradiol [From Vagifem] Adverse Reaction (Mild, Verified 03/31/20 09:30) Itching estrogens, conjugated [From Prempro] Adverse Reaction (Mild, Verified 03/31/20 09:30) Itching indomethacin Adverse Reaction (Mild, Verified 03/31/20 09:30) Headache levofloxacin [From Levaquin] Adverse Reaction (Mild, Verified 03/31/20 09:30) RASH medroxyprogesterone acetate [From Prempro] Adverse Reaction (Mild, Verified 03/31/20 09:30) Itching niacin Adverse Reaction (Mild, Verified 03/31/20 09:30) RASH topiramate [From Topamax] Adverse Reaction (Mild, Verified 03/31/20 09:30) Headache triazolam [From Halcion] Adverse Reaction (Mild, Verified 03/31/20 09:30) Itching Home Medications: HOME MEDICATIONS L.acidoph,Paracasei, B.lactis [Probiotic] 2 ea PO DAILY 01/18/18 [Last Taken 03/01/19] Mv-Mn/Folic Acid/Calcium/Vit K [Women's 50 Plus Daily Formula] 2 ea PO DAILY 01/18/18 [Last Taken 03/01/19] Acetaminophen [Tylenol] 650 mg PO Q4H PRN #30 tab 05/03/18 [Last Taken Unknown] rivaroxaban 20 mg tablet 20 mg PO DAILY 05/05/18 [Last Taken 03/01/19] losartan 100 mg tablet 100 mg PO DAILY #90 tab 10/13/18 [Last Taken 03/01/19] topiramate 25 mg tablet 25 mg PO BID #180 tab 10/13/18 [Last Taken 03/01/19] amiodarone 200 mg tablet 200 mg PO DAILY #90 tab 11/10/18 [Last Taken 03/02/19] umeclidinium 62.5 mcg-vilanterol 25 mcg/actuation powdr for inhalation 1 inh IH DAILY 12/24/18 [Last Taken 03/01/19] Melatonin 10 mg PO HS 02/16/19 [Last Taken 03/01/19] dexlansoprazole 30 mg capsule,biphase delayed release 30 mg PO DAILY #90 cap 08/13/19 [Last Taken Unknown] paroxetine HCl 40 mg tablet 40 mg PO DAILY #90 tab 08/17/19 [Last Taken Unknown] mirtazapine 15 mg tablet 15 mg PO HS #30 tab 11/02/19 [Last Taken Unknown] levothyroxine 88 mcg tablet 88 mcg PO DAILY #90 tab 02/22/20 [Last Taken Unknown] ropinirole 1 mg tablet 1 mg PO HS #30 tab 03/15/20 [Last Taken Unknown] aripiprazole 5 mg tablet 2.5 mg PO HS #45 tab 03/16/20 [Last Taken Unknown] furosemide 20 mg tablet 40 mg PO DAILY PRN #60 tab 03/16/20 [Last Taken Unknown] Narrative: Patient presents to the ED for racing heart and pain in her mid back with SOB. He has Hx a fib and could feel her heart out of rhythm Saturday. Has been having waxing and waning Sx since then. No chest pain. No fever or cough but SOB. Mid back pain. No pleuritic pain. No new calf pain or swelling. No abdominal pain. Timing: other - fluctuating intensity Severity/Quality: moderate Location: other - between shoulder baldes Chest Pain Radiation: no radiation Activities at Onset: none Modifying Factors - Improves: Present: nothing Modifying Factors - Worsens: Present: nothing Nitro Today/Relief: no nitro taken today Associated Symptoms: Present: shortness of breath. Absent: cough, diaphoresis, weakness Prior Chest Pain/Cardiac Workup: Denies: pulmonary embolism Prior Treatment: Denies: recently seen Review of Systems - Review of Systems Constitutional: Absent: fever EYE: Present: no symptoms reported ENT: Absent: sore throat Respiratory: Present: See HPI Cardiology: Present: See HPI Gastrointestinal/Abdominal: Absent: abdominal pain Musculoskeletal: Absent: neck pain Neurological: Absent: weakness All Other Systems: All systems neg except as marked Medical History (Last Reviewed 03/31/20 @ 13:32 by Franklin Hinojosa MD) Rheumatic heart disease (Chronic) Onset Date: 11/04/18 Dr. Brandan Haley, [facility]. 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 Wears glasses Onset Date: Unknown Anxiety Onset Date: Unknown Atrial fibrillation Onset Date: Unknown COPD (chronic obstructive pulmonary disease) Onset Date: Unknown Depression Onset Date: Unknown Fibrocystic breast disease Onset Date: Unknown Fibromyalgia Onset Date: Unknown GERD (gastroesophageal reflux disease) Onset Date: Unknown Hypertension Onset Date: Unknown Hypothyroidism Onset Date: Unknown Insomnia Onset Date: Unknown Lichen sclerosus Onset Date: Unknown Migraines Onset Date: Unknown Obstructive sleep apnea Onset Date: Unknown Restless leg syndrome Onset Date: Unknown Rheumatoid arthritis Onset Date: Unknown Vertigo Onset Date: Unknown Altered mental status Onset Date: 07/30/18 Hospital admission Onset Date: 07/30/18 Admitted to [facility] on 07/30/2018; altered mental status, atrial fibrillation with RVR, and ataxia. Discharged home on 08/01/2018. Surgical History: Surgical History (Last Reviewed 03/31/20 @ 13:32 by Franklin Hinojosa MD) History of cataract surgery Onset Date: ~03/02/19 left-hemorrhage and lens has been left out for healing. Will replace once healed. History of appendectomy Onset Date: Unknown History of biopsy Onset Date: 07/22/18 Dr. Cleveland Turner, [facility]. Punch biopsy of left pretibial region. 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 History of cardiac radiofrequency ablation Onset Date: ~03/2011 [facility] History of carpal tunnel release Onset Date: 02/17/162003 right. 02/17/16 Lutz-left History of cataract removal with insertion of prosthetic lens Onset Date: ~03/02/19 right History of section Onset Date: ~1973 History of hemorrhoidectomy Onset Date: 06/16/12 Dr. Marty Shelton, [facility]. Thrombosed hemorrhoid. History of hysterectomy Onset Date: ~1984 [facility] History of nephrolithotomy with removal of calculi Onset Date: 01/2017 History of temporal artery biopsy Onset Date: 05/07/18 [facility]-no evidence of giant cell arteritis. Mild arteriosclerosis. History of tubal ligation Onset Date: Unknown Status post trigger finger release Onset Date: 12/16/15 Lutz-right Family History: Family History (Last Reviewed 03/31/20 @ 13:32 by Franklin Hinojosa MD) Father , age 70's-ME Myocardial infarction Heart disease Diabetes Mother , age [id number] type Cancer in the abdomen Son , age 27-rhabdoid sarcoma No problems noted. Social History: (Last Reviewed 03/31/20 @ 13:32 by Franklin Hinojosa MD) Social History: Marital status: household members: spouse number of children: 2 current occupational status: retired current occupation: retired self employed [employer] Service: No Tobacco: Smoking Status: Former smoker Alcohol: alcohol intake: former Substance Use: substance use type: does not use Dietary Habits: caffeine: Yes Personal Safety: victim of physical abuse: No victim of emotional abuse: No Physical Exam - Physical Exam General Appearance: Present: alert, no apparent distress Head Exam: Present: normal inspection, no evidence of injury Eye Exam: Normal inspection: bilateral, PERRL: bilateral Ears, Nose, Throat: Present: normal ENT inspection Neck: Present: normal inspection Respiratory: Present: no respiratory distress, other - coarse in bases bilaterally Cardiovascular/Chest: Present: tachycardia, irregularly irregular Gastrointestinal/Abdominal: Present: normal bowel sounds, nontender, nondistended, soft Back Exam: Absent: CVA tenderness (R), CVA tenderness (L) Extremity Exam: Present: other - exscar left lateral calf from "blood clot removed" by Dr Martines. mild swelling here. Neurological Exam: Present: alert, no motor/sensory deficits Skin Exam: Present: normal color, warm/dry Progress - Results and Orders Patient's Lab Results:: I have reviewed the patient's lab results. - Vital Signs Patient's Vital Signs:: I have reviewed the patient's vital signs. Vital Signs: Vital Signs 12/10/20 09:22 03/31/20 10:23 03/31/20 10:27 Temperature 36.0 C Pulse Rate 125 H 121 H 113 H Respiratory Rate 28 H 23 H Blood Pressure 160/105 H 116/47 115/47 O2 Sat by Pulse Oximetry 98 94 03/31/20 10:32 03/31/20 10:53 03/31/20 11:36 Temperature 36.0 C Pulse Rate 108 H 111 H 101 H Respiratory Rate 23 H Blood Pressure 120/81 109/61 132/77 O2 Sat by Pulse Oximetry 94 03/31/20 11:40 03/31/20 12:07 03/31/20 12:42 Temperature Pulse Rate 104 H 105 H 110 H Respiratory Rate 21 H 20 16 Blood Pressure 132/77 145/106 H 123/72 O2 Sat by Pulse Oximetry 96 95 95 - EKG EKG #1 EKG: atrial fibrillation EKG read: Interp. by me EKG Comments: A Fib RVR rate 123. RBBB. Non-specific, no clear STEMI. - X-Ray X-Ray #1 X-Ray: chest Interpretation: Interp. by me X-ray Comments: I personally reviewed CXR image as well as official radiology report - CT/Ultrasound CT/Ultrasound Narrative: I reviewed official radiology report for CT chest - Progress/Reassessment Chief Complaint: Chest Pain Progress Note-Subjective: 03/31/20 13:38 Rate controlled with IV cardizem and cardizem drip. Lasix given. D/W Dr Monae, he will admit the patient for further treatment. No PE or aortic dissection. Departure Clinical Impression: CHF (congestive heart failure), Atrial fibrillation with RVR - Departure Disposition: Still a patient Condition: Fair
[2020-03-31] MEDS ORDERED: ACETAMINOPHEN 325 MG TABLET PO PRN (15:14)
[2020-03-31] MEDS: METOPROLOL TARTRATE 1 MG/ML AMPUL IV SCH ×3 (17:06→17:21)
[2020-03-31] MEDS: FORMOTEROL FUMARATE 20 MCG/2 ML VIAL IH SCH (18:48)
[2020-03-31] MEDS: TOPIRAMATE 50 MG TABLET PO SCH (20:07)
[2020-03-31] MEDS ORDERED: MIRTAZAPINE 15 MG TABLET PO SCH (21:00)
[2020-03-31] MEDS ORDERED: ARIPiprazole 5 MG TABLET PO SCH (21:00)
[2020-03-31] MEDS ORDERED: MELATONIN 3,000 MCG TABLET PO SCH (21:00)
[2020-03-31] MEDS ORDERED: rOPINIRole HCL 1 MG TABLET PO SCH (21:00)
--- NOTE | 2020-03-31 21:35 | HP ---
Chief Complaint - Chief Complaint Date of Service: 03/31/20 Time of Service: 16:30 Chief Complaint: Shortness of breath/palpitations History of Present Illness: Lianne is a 74 yo female with history of atrial fibrillation, ventricular pacemaker who presented to the [facility] ER with shortness of breath, palpitations, and fast heart rate. She started having symptoms 5 days ago that have been off and on, but today they became significantly worse. She was give IV diltiazem for heart rate of 140s with atrial fibrillation. She was then placed on diltiazem drip and heart rate improved to 100. She is feeling better but is currently on diltiazem drip with rate of 15. She reports having episodes of this in the last year. Her last episode required electrical cardioversion 4 months ago. Medical History (Last Reviewed 03/31/20 @ 13:32 by Franklin Hinojosa MD) Rheumatic heart disease (Chronic) Onset Date: 11/04/18 Dr. Brandan Haley, [facility]. 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 Wears glasses Onset Date: Unknown Anxiety Onset Date: Unknown Atrial fibrillation Onset Date: Unknown COPD (chronic obstructive pulmonary disease) Onset Date: Unknown Depression Onset Date: Unknown Fibrocystic breast disease Onset Date: Unknown Fibromyalgia Onset Date: Unknown GERD (gastroesophageal reflux disease) Onset Date: Unknown Hypertension Onset Date: Unknown Hypothyroidism Onset Date: Unknown Insomnia Onset Date: Unknown Lichen sclerosus Onset Date: Unknown Migraines Onset Date: Unknown Obstructive sleep apnea Onset Date: Unknown Restless leg syndrome Onset Date: Unknown Rheumatoid arthritis Onset Date: Unknown Vertigo Onset Date: Unknown Altered mental status Onset Date: 07/30/18 Hospital admission Onset Date: 07/30/18 Admitted to [facility] on 07/30/2018; altered mental status, atrial fibrillation with RVR, and ataxia. Discharged home on 08/01/2018. Surgical History: Surgical History (Last Reviewed 03/31/20 @ 13:32 by Franklin Hinojosa MD) History of cataract surgery Onset Date: ~03/02/19 left-hemorrhage and lens has been left out for healing. Will replace once healed. History of appendectomy Onset Date: Unknown History of biopsy Onset Date: 07/22/18 Dr. Cleveland Turner [facility]. Punch biopsy of left pretibial region. 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 History of cardiac radiofrequency ablation Onset Date: ~03/2011 [facility] History of carpal tunnel release Onset Date: 02/17/162003 right. 02/17/16 [place]-left History of cataract removal with insertion of prosthetic lens Onset Date: ~03/02/19 right History of section Onset Date: ~1973 History of hemorrhoidectomy Onset Date: 06/16/12 Dr. Marty Shelton, [facility]. Thrombosed hemorrhoid. History of hysterectomy Onset Date: ~1984 [facility] History of nephrolithotomy with removal of calculi Onset Date: 01/2017 History of temporal artery biopsy Onset Date: 05/07/18 [facility]-no evidence of giant cell arteritis. Mild arteriosclerosis. History of tubal ligation Onset Date: Unknown Status post trigger finger release Onset Date: 12/16/15 [place]-right Family History: Family History (Last Reviewed 03/31/20 @ 13:32 by Franklin Hinojosa MD) Father , age 70's-DE Myocardial infarction Heart disease Diabetes Mother , age 6636-asvjhc-hejyxse type Cancer in the abdomen Son , age 27-rhabdoid sarcoma No problems noted. Social History: (Last Reviewed 03/31/20 @ 13:32 by Franklin Hinojosa MD) Social History: Marital status: household members: spouse number of children: 2 current occupational status: retired current occupation: retired self employed [employer] Service: No Tobacco: Smoking Status: Former smoker Alcohol: alcohol intake: former Substance Use: substance use type: does not use Dietary Habits: caffeine: Yes Personal Safety: victim of physical abuse: No victim of emotional abuse: No Review Of Systems (GEN) - Review of Systems Generalized/Overall Review: Present: Weakness. Absent: Chills, Fever EENTM: Present: No Symptoms Reported Respiratory: Present: Shortness of Breath. Absent: Cough Cardiac: Present: Palpitations. Absent: Chest Pain, Edema, Syncope Abdominal: Absent: Nausea, Vomiting Genitourinary: Absent: Burning, Frequency Musculoskeletal: Present: No Symptoms Reported Neurological: Present: No Symptoms Reported Skin: Present: No Symptoms Reported Immunizations: IMMUNIZATION HX Immunizations Up to Date Yes History of Influenza Vaccine Yes Hx Pneumococcal Vaccination Yes Allergies/Adverse Reactions: Allergies Allergy/AdvReac Type Severity Reaction Status Date / Time desvenlafaxine succinate Allergy Mild Headache Verified 03/31/20 09:30 [From Pristiq] morphine Allergy Mild hypotension Verified 03/31/20 09:30 metronidazole [From Flagyl] Allergy Unknown unsure Verified 03/31/20 09:30 citalopram hydrobromide AdvReac Mild Headache Verified 03/31/20 09:30 [From Celexa] cyclobenzaprine HCl AdvReac Mild Headache Verified 03/31/20 09:30 [From Flexeril] desipramine AdvReac Mild Headache Verified 03/31/20 09:30 estradiol [From Vagifem] AdvReac Mild Itching Verified 03/31/20 09:30 estrogens, conjugated AdvReac Mild Itching Verified 03/31/20 09:30 [From Prempro] indomethacin AdvReac Mild Headache Verified 03/31/20 09:30 levofloxacin [From Levaquin] AdvReac Mild RASH Verified 03/31/20 09:30 medroxyprogesterone acetate AdvReac Mild Itching Verified 03/31/20 09:30 [From Prempro] niacin AdvReac Mild RASH Verified 03/31/20 09:30 topiramate [From Topamax] AdvReac Mild Headache Verified 03/31/20 09:30 triazolam [From Halcion] AdvReac Mild Itching Verified 03/31/20 09:30 Home Medications: HOME MEDICATIONS L.acidoph,Paracasei, B.lactis [Probiotic] 2 ea PO DAILY 01/18/18 [Last Taken 03/01/19] Mv-Mn/Folic Acid/Calcium/Vit K [Women's 50 Plus Daily Formula] 2 ea PO DAILY 01/18/18 [Last Taken 03/01/19] rivaroxaban 20 mg tablet 20 mg PO DAILY 05/05/18 [Last Taken 03/01/19] losartan 100 mg tablet 100 mg PO DAILY #90 tab 10/13/18 [Last Taken 03/01/19] topiramate 25 mg tablet 25 mg PO BID #180 tab 10/13/18 [Last Taken 03/01/19] amiodarone 200 mg tablet 200 mg PO DAILY #90 tab 11/10/18 [Last Taken 03/02/19] umeclidinium 62.5 mcg-vilanterol 25 mcg/actuation powdr for inhalation 1 inh IH DAILY 12/24/18 [Last Taken 03/01/19] Melatonin 5 mg PO HS 02/16/19 [Last Taken 03/01/19] dexlansoprazole 30 mg capsule,biphase delayed release 30 mg PO DAILY #90 cap 08/13/19 [Last Taken Unknown] paroxetine HCl 40 mg tablet 40 mg PO DAILY #90 tab 08/17/19 [Last Taken Unknown] mirtazapine 15 mg tablet 15 mg PO HS #30 tab 11/02/19 [Last Taken Unknown] ropinirole 1 mg tablet 1 mg PO HS #30 tab 03/15/20 [Last Taken Unknown] aripiprazole 5 mg tablet 2.5 mg PO HS #45 tab 03/16/20 [Last Taken Unknown] furosemide 20 mg tablet 40 mg PO DAILY PRN #60 tab 03/16/20 [Last Taken Unknown] Acetaminophen [Tylenol] 325 mg PO Q4H PRN 03/31/20 [Last Taken Unknown] Albuterol Sulfate/Ipratropium [Duoneb 2.5-0.5MG/3ML Soln] 3 ml IH PRN 03/31/20 [Last Taken Unknown] Levothyroxine Sodium [Synthroid] 75 mcg PO DAILY 03/31/20 [Last Taken Unknown] Exam - Exam Vital Signs: Vital Signs - Last Taken Temp 36.8 C 03/31/20 19:30 Pulse 74 03/31/20 20:39 Resp 18 03/31/20 19:30 BP 109/57 03/31/20 20:39 Pulse Ox 93 03/31/20 19:30 Constitutional: Present: Alert, Oriented x3, Cooperative, No distress ENT Exam: Present: hearing grossly normal Eye Exam: bilateral eye: normal inspection Respiratory: Present: lungs clear, no respiratory distress Cardiovascular/Chest: Present: tachycardia, irregularly irregular Peripheral Pulses: radial (R): 2+, radial (L): 2+ Abdomen: Present: Normal bowel sounds, soft, nontender, nondistended Extremity: Present: normal inspection Skin Exam: Present: normal color, warm/dry, no cyanosis Appearance: Present: appropriate appearance, appropriate insight Eye contact: Present: cooperative, good eye contact, normal speech Thoughts: Present: normal thought pattern, no apparent hallucination Diagnostic Studies: Abnormal Lab Results 03/31/20 03/31/20 03/31/20 Range/Units 09:50 09:50 09:50 MCHC 31.3 L (32-36) g/dl RDW 14.8 H (11.5-14.0) % Lymphocytes % 15.5 L (20-51) % Lymphocytes # 1.14 L (1.5-3.5) k/mm3 D-Dimer 0.98 H (0.19-0.49) ug/mL Chloride 107 H (97-106) mmol/L Carbon Dioxide 23.4 L (24-32.6) mmol/L Anion Gap 14.2 H (6.8-13.8) mmol/L BUN 34 H (3-23) mg/dL Creatinine 1.49 H (0.4-1.4) mg/dL Est GFR (Non-Af Amer) 37 L (60-130) mL/min BUN/Creatinine Ratio 22.8 H (9.0-21.6) Random Glucose 161 H (70-110) mg/dL B-Natriuretic Peptide (5-325) pg/mL Albumin 3.3 L (3.4-5.0) gm/dl TSH (0.358-3.74) uIU/mL 03/31/20 03/31/20 Range/Units 09:50 09:50 MCHC (32-36) g/dl RDW (11.5-14.0) % Lymphocytes % (20-51) % Lymphocytes # (1.5-3.5) k/mm3 D-Dimer (0.19-0.49) ug/mL Chloride (97-106) mmol/L Carbon Dioxide (24-32.6) mmol/L Anion Gap (6.8-13.8) mmol/L BUN (3-23) mg/dL Creatinine (0.4-1.4) mg/dL Est GFR (Non-Af Amer) (60-130) mL/min BUN/Creatinine Ratio (9.0-21.6) Random Glucose (70-110) mg/dL B-Natriuretic Peptide 6295 H (5-325) pg/mL Albumin (3.4-5.0) gm/dl TSH 6.245 H (0.358-3.74) uIU/mL Laboratory Results WBC 7.4 K/mm3 (4.0-10.5) 03/31/20 09:50 RBC 4.28 M/mm3 (4.2-5.4) 03/31/20 09:50 Hgb 12.5 gm/dL (12.5-16.0) 03/31/20 09:50 Hct 39.9 % (37.0-47.0) 03/31/20 09:50 MCV 93.2 fl (78-100) 03/31/20 09:50 MCH 29.2 pg (27-31) 03/31/20 09:50 MCHC 31.3 g/dl (32-36) L 03/31/20 09:50 RDW 14.8 % (11.5-14.0) H 03/31/20 09:50 Plt Count 196 K/mm3 (150-450) 03/31/20 09:50 MPV 11.4 fl (8-12.5) 03/31/20 09:50 Immature Gran % (Auto) 0.40 % (0.001-0.429) 03/31/20 09:50 Immature Gran # (Auto) 0.03 K/mm3 (0.000-0.0310) 03/31/20 09:50 Neutrophils % 73.5 % (42-75.0) 03/31/20 09:50 Lymphocytes % 15.5 % (20-51) L 03/31/20 09:50 Monocytes % 7.7 % (0.0-9) 03/31/20 09:50 Eosinophils % 2.4 % (0.0-3.0) 03/31/20 09:50 Basophils % 0.5 % (0.0-1.0) 03/31/20 09:50 Nucleated RBC % 0.0 k/mm3 (0-1) 03/31/20 09:50 Neutrophils # 5.4 K/mm3 (1.3-6.0) 03/31/20 09:50 Lymphocytes # 1.14 k/mm3 (1.5-3.5) L 03/31/20 09:50 Monocytes # 0.6 k/mm3 (0.0-1.0) 03/31/20 09:50 Eosinophils # 0.2 k/mm3 (0.0-0.7) 03/31/20 09:50 Absolute Basophils 0.0 k/mm3 (0.0-0.1) 03/31/20 09:50 D-Dimer 0.98 ug/mL (0.19-0.49) H 03/31/20 09:50 Sodium 141 mmol/L (132-142) 03/31/20 09:50 Plasma Sodium 142 mmol/L (130-142) 03/31/20 09:50 Potassium 3.6 mmol/L (3.4-4.6) 03/31/20 09:50 Chloride 107 mmol/L (97-106) H 03/31/20 09:50 Carbon Dioxide 23.4 mmol/L (24-32.6) L 03/31/20 09:50 Anion Gap 14.2 mmol/L (6.8-13.8) H 03/31/20 09:50 BUN 34 mg/dL (3-23) H 03/31/20 09:50 Creatinine 1.49 mg/dL (0.4-1.4) H 03/31/20 09:50 Est GFR (Non-Af Amer) 37 mL/min (60-130) L 03/31/20 09:50 BUN/Creatinine Ratio 22.8 (9.0-21.6) H 03/31/20 09:50 Random Glucose 161 mg/dL (70-110) H 03/31/20 09:50 Calcium 9.1 mg/dL (7.9-10.9) 03/31/20 09:50 Calcium Adj for Albumin 9.3 mg/dL (8.4-10.2) 03/31/20 09:50 Total Bilirubin 0.4 mg/dL (0.0-1.1) 03/31/20 09:50 AST 23 U/L (0-48) 03/31/20 09:50 ALT 28 U/L (19-67) 03/31/20 09:50 Alkaline Phosphatase 141 U/L (50-170) 03/31/20 09:50 Troponin I 0.017 ng/mL (0.00-0.10) 03/31/20 09:50 B-Natriuretic Peptide 6295 pg/mL (5-325) H 03/31/20 09:50 Total Protein 8.0 gm/dL (6.2-8.2) 03/31/20 09:50 Albumin 3.3 gm/dl (3.4-5.0) L 03/31/20 09:50 TSH 6.245 uIU/mL (0.358-3.74) H 03/31/20 09:50 SARS-CoV-2 (PCR) Not detected (NotDetected) 03/31/20 12:05 Assessment/Plan - Narrative Narrative: Lianne is a 74 yo female with atrial fibrillation with RVR. This is a reoccurring event. She was given IV diltiazem and placed on a drip, her heart rate has improved to 100, but she is on diltiazem with a rate of 15. Her thyroid appears to be low and BNP is elevated with increased weight and pulmonary vascular congestion indicating exacerbation of diastolic CHF. These may be triggers for her episode. Will continue diltiazem drip and wean as able. Will c ontinue home oral amiodarone. May give metoprolol if needed. If able to wean off diltiazem and rate is controlled and she is feeling well tomorrow, may be able to discharge to home. Will increase levothyroxine to 100mcg daily and give IV lasix for acute on chronic diastolic CHF. Will admit to observation, anticipate home discharge tomorrow. - Assessment/Plan (1) Acute on chronic diastolic CHF (congestive heart failure) Problem: Acute (2) Atrial fibrillation with RVR Problem: Acute (3) Hypothyroidism Problem: Chronic Qualifiers: Hypothyroidism type: unspecified Qualified Code(s): E03.9 - Hypothyroidism, unspecified
[2020-04-01 05:54] LABS: Hematocrit 39.9 % (37.0-47.0); Hemoglobin 12.4 gm/dL (12.5-16.0); Mean Cell Volume 93.2 fl (78-100); Mean Corpuscular Hgb Conc 31.1 g/dl (32-36); Mean Platelet Volume 11.4 fl (8-12.5); Platelet Count 197 K/mm3 (150-450); Red Blood Count 4.28 M/mm3 (4.2-5.4); Red Cell Distribution Width 14.8 % (11.5-14.0); White Blood Count 7.6 K/mm3 (4.0-10.5)
[2020-04-01] MEDS: FORMOTEROL FUMARATE 20 MCG/2 ML VIAL IH SCH (06:05)
[2020-04-01 06:10] LABS: Albumin * 3.1 gm/dl (3.4-5.0); Anion Gap 11.4 mmol/L (6.8-13.8); Bilirubin, Total 0.5 mg/dL (0.0-1.1); Ca. Corrected For Albumin 9.5 mg/dL (8.4-10.2); Calcium * 9.1 mg/dL (7.9-10.9); Carbon Dioxide 26.1 mmol/L (24-32.6); Potassium 3.5 mmol/L (3.4-4.6); Total Protein 7.8 gm/dL (6.2-8.2)
[2020-04-01] MEDS ORDERED: LEVOTHYROXINE SODIUM 88 MCG TABLET PO SCH (07:00)
[2020-04-01] MEDS ORDERED: PANTOPRAZOLE SODIUM 20 MG TABLET.DR PO SCH (07:00)
[2020-04-01] MEDS ORDERED: LEVOTHYROXINE SODIUM 100 MCG TABLET PO SCH (07:00)
[2020-04-01] MEDS: METOPROLOL TARTRATE 50 MG TABLET PO SCH ×2 (08:09→08:18)
[2020-04-01] MEDS: TOPIRAMATE 50 MG TABLET PO SCH (08:12)
[2020-04-01] MEDS ORDERED: RIVAROXABAN 20 MG TABLET PO SCH (09:00)
[2020-04-01] MEDS ORDERED: LOSARTAN POTASSIUM 50 MG TABLET PO SCH (09:00)
[2020-04-01] MEDS ORDERED: AMIODARONE HCL 200 MG TABLET PO SCH (09:00)
[2020-04-01] MEDS ORDERED: TIOTROPIUM BROMIDE 5 CAP INHALER IH SCH (09:00)
[2020-04-01] MEDS ORDERED: PARoxetine HCL 20 MG TABLET PO SCH (09:00)
--- NOTE | 2020-04-01 13:08 | DS ---
(1) Atrial fibrillation with RVR Problem: Resolved (2) Acute on chronic diastolic CHF (congestive heart failure) Problem: Resolved (3) Hypothyroidism Problem: Chronic Qualifiers: Hypothyroidism type: unspecified Qualified Code(s): E03.9 - Hypothyroidism, unspecified Date of Discharge:: 04/01/20 Hospital Course: Lianne is a 74 yo female admitted for atrial fibrillation with RVR. She was started on diltiazem IV drip and heart rate improved from 140 to 100 but she required maximum rate of the drip. She was then given 5mg of IV lopressor x 3 and her heart rate dramatically improved and she converted to normal rhythm with her ventricular pacer. She was gradually weaned off the diltiazem drip. Her thyroid was increased to 100mcg daily. She was started on oral metoprolol tartrate 50mg PO BID. She was feeling well and ready to be discharged. Procedures Performed: none Results and Findings: Lab Pending Results 03/31/20 09:50: WBC 7.4, RBC 4.28, Hgb 12.5, Hct 39.9, MCV 93.2, MCH 29.2, MCHC 31.3 L, RDW 14.8 H, Plt Count 196, MPV 11.4, Immature Gran % (Auto) 0.40, Immature Gran # (Auto) 0.03, Neutrophils % 73.5, Lymphocytes % 15.5 L, Monocytes % 7.7, Eosinophils % 2.4, Basophils % 0.5, Nucleated RBC % 0.0, Neutrophils # 5.4, Lymphocytes # 1.14 L, Monocytes # 0.6, Eosinophils # 0.2, Absolute Basophils 0.0 03/31/20 09:50: Sodium 141, Plasma Sodium 142, Potassium 3.6, Chloride 107 H, Carbon Dioxide 23.4 L, Anion Gap 14.2 H, BUN 34 H, Creatinine 1.49 H, Est GFR (Non-Af Amer) 37 L, BUN/Creatinine Ratio 22.8 H, Random Glucose 161 H, Calcium 9.1, Calcium Adj for Albumin 9.3, Total Bilirubin 0.4, AST 23, ALT 28, Alkaline Phosphatase 141, Troponin I 0.017, Total Protein 8.0, Albumin 3.3 L 03/31/20 09:50: D-Dimer 0.98 H 03/31/20 09:50: B-Natriuretic Peptide 6295 H 03/31/20 09:50: TSH 6.245 H 03/31/20 12:05: SARS-CoV-2 (PCR) Not detected 04/01/20 05:20: WBC 7.6, RBC 4.28, Hgb 12.4 L, Hct 39.9, MCV 93.2, MCH 29.0, MCHC 31.1 L, RDW 14.8 H, Plt Count 197, MPV 11.4, Immature Gran % (Auto) 0.50 H, Immature Gran # (Auto) 0.04 H, Neutrophils % 66.0, Lymphocytes % 19.7 L, Monocytes % 9.6 H, Eosinophils % 3.5 H, Basophils % 0.7, Nucleated RBC % 0.0, Neutrophils # 5.0, Lymphocytes # 1.50, Monocytes # 0.7, Eosinophils # 0.3, Absolute Basophils 0.1 04/01/20 05:20: Sodium 139, Plasma Sodium 139, Potassium 3.5, Chloride 105, Carbon Dioxide 26.1, Anion Gap 11.4, BUN 26 H, Creatinine 1.30, Est GFR (Non-Af Amer) 43 L, BUN/Creatinine Ratio 20.0, Random Glucose 100 D, Calcium 9.1, Ca lcium Adj for Albumin 9.5, Total Bilirubin 0.5, AST 21, ALT 26, Alkaline Phosphatase 136, Total Protein 7.8, Albumin 3.1 L Discharge Location: Home Disposition: Home self-care Condition: Good Discharge Activity: Activity as tolerated Discharge Diet: General/regular food Referrals: Ki Monae DO [Primary Care Provider] - One Week Problem Oriented Discharge Instructions to Patient/Family: Atrial Fibrillation, [id number] Prescriptions (Any new or edited meds): Metoprolol Tartrate [Lopressor] 50 mg PO BID #60 tab Transmission Status: Pending to [email or web address] #[id number] Levothyroxine Sodium [Synthroid] 100 mcg PO DAILY@0700 #30 tab Transmission Status: Pending to [facility] #[id number] Complete Home Medications List: Complete Home Medication List: L.acidoph,Paracasei, B.lactis [Probiotic] 2 ea PO DAILY 01/18/18 Mv-Mn/Folic Acid/Calcium/Vit K [Women's 50 Plus Daily Formula] 2 ea PO DAILY 01/18/18 rivaroxaban 20 mg tablet 20 mg PO DAILY 05/05/18 losartan 100 mg tablet 100 mg PO DAILY #90 tab 10/13/18 topiramate 25 mg tablet 25 mg PO BID #180 tab 10/13/18 amiodarone 200 mg tablet 200 mg PO DAILY #90 tab 11/10/18 umeclidinium 62.5 mcg-vilanterol 25 mcg/actuation powdr for inhalation 1 inh IH DAILY 12/24/18 Melatonin 5 mg PO HS 02/16/19 dexlansoprazole 30 mg capsule,biphase delayed release 30 mg PO DAILY #90 cap 08/13/19 paroxetine HCl 40 mg tablet 40 mg PO DAILY #90 tab 08/17/19 mirtazapine 15 mg tablet 15 mg PO HS #30 tab 11/02/19 ropinirole 1 mg tablet 1 mg PO HS #30 tab 03/15/20 aripiprazole 5 mg tablet 2.5 mg PO HS #45 tab 03/16/20 furosemide 20 mg tablet 40 mg PO DAILY PRN #60 tab 03/16/20 Acetaminophen [Tylenol] 325 mg PO Q4H PRN 03/31/20 Albuterol Sulfate/Ipratropium [Duoneb 2.5-0.5MG/3ML Soln] 3 ml IH PRN 03/31/20 Formoterol Fumarate [Perforomist] 20 mcg IH BIDRT vial 04/01/20 Levothyroxine Sodium [Synthroid] 100 mcg PO DAILY@0700 #30 tab 04/01/20 Metoprolol Tartrate [Lopressor] 50 mg PO BID #60 tab 04/01/20
[2020-04-01 14:47] VITALS: BP 104/67
== END 2020-04-01 14:10 | disposition home or self-care (01) ==
LOC: MS 09:22 → ER 09:22 → MS 14:09
PROVIDERS: ADMIT Family Medicine; ATTEND Family Medicine
DX: I11.0 Hypertensive heart disease with heart failure; R00.0 Tachycardia, unspecified; E03.9 Hypothyroidism, unspecified; I50.33 Acute on chronic diastolic (congestive) heart failure; Z87.891 Personal history of nicotine dependence; I48.91 Unspecified atrial fibrillation